=== PATIENT | male | born 1945 | race Caucasian/White ===

== ENCOUNTER 2018-11-30 16:37 | Observation (INO) | payer OTHER ==
[2018-11-30] MEDS ORDERED: Aspirin 81 MG Tab.Chew PO ONE (16:48)
[2018-11-30] MEDS ORDERED: Sodium Chloride 0.9% 2.5 ML Syringe FLUSH PRN (16:48)
[2018-11-30] MEDS ORDERED: Sodium Chloride 0.9% 10 ML Syringe FLUSH PRN (16:48)
--- NOTE | 2018-11-30 16:53 | EDM.PDOC ---
ED HPI GENERAL MEDICAL PROBLEM - General Chief Complaint: Cardiovascular Problem Stated Complaint: CHEST PAIN Time Seen by Provider: 11/30/18 16:39 - History of Present Illness INITIAL COMMENTS - FREE TEXT/NARRATIVE: HISTORY AND PHYSICAL: History of present illness: Patient is a 72-year-old white male status post cardiac stent 3 mid-October of this year who presents with a concern of a chest discomfort and diaphoresis and shortness of breath that occurred when he was exerting himself while helping his son. Patient states this episode lasted approximately 1 hour he is without symptoms on arrival here. He was prescribed nitroglycerin status post procedure but states he had left at home and did not take it. Review of systems: As per history of present illness and below otherwise all systems reviewed and negative. Past medical history: As per history of present illness and as reviewed below otherwise noncontributory. Surgical history: As per history of present illness and as reviewed below otherwise noncontributory. Social history: No reported history of drug or alcohol abuse. Family history: As per history of present illness and as reviewed below otherwise noncontributory. Physical exam: HEENT: Atraumatic, normocephalic, pupils reactive, negative for conjunctival pallor or scleral icterus, mucous membranes moist, throat clear, neck supple, nontender, trachea midline. Lungs: Clear to auscultation, breath sounds equal bilaterally, chest nontender. Heart: S1S2, regular, negative for clicks, rubs, or JVD. Abdomen: Soft, nondistended, nontender. Negative for masses or hepatosplenomegaly. Negative for costovertebral tenderness. Pelvis: Stable nontender. Genitourinary: Deferred. Rectal: Deferred. Extremities: Atraumatic, negative for cords or calf pain. Neurovascular unremarkable. Neuro: Awake, alert, oriented. Cranial nerves II through XII unremarkable. Cerebellum unremarkable. Motor and sensory unremarkable throughout. Exam nonfocal. Diagnostics: CBC CMP BNP troponin PT/INR chest x-ray EKG Therapeutics: IV O2 monitor aspirin 324 mg by mouth Impression: #1 chest pain #2 history of cardiac stent times 3 (October 2018) Definitive disposition and diagnosis as appropriate pending reevaluation and review of above. chest Pain Score (Numeric/FACES): 2 - Related Data Allergies Allergy/AdvReac Type Severity Reaction Status Date / Time Fish Containing Products Allergy Nausea and Verified 11/30/18 16:38 Vomiting shellfish derived Allergy Cannot Verified 11/30/18 16:38 Remember dust Allergy Sneezing Uncoded 08/10/16 10:45 Home Meds: Home Meds Albuterol [Proventil HFA] 2 puff INH Q6H PRN 08/10/16 [History] Aspirin [Adult Low Dose Aspirin EC] 1 tab PO DAILY 08/10/16 [History] Atenolol 1 tab PO DAILY 08/10/16 [History] Fexofenadine HCl 1 tab PO DAILY 08/10/16 [History] Fluticasone Propionate [Flonase Allergy Relief] 2 spray NASBOTH DAILY 08/10/16 [ History] Gabapentin [Neurontin] 1 cap PO BID 08/10/16 [History] Lisinopril 0.5 tab PO DAILY 08/10/16 [History] Mometasone Furoate 100mcg [Asmanex HFA 100mcg] 1 puff INH QPM 08/10/16 [History] Multivitamin [Multivitamins] 1 cap PO DAILY 08/10/16 [History] Pantoprazole Sodium 1 tab PO QAM 08/10/16 [History] Potassium Chloride 2 cap PO DAILY 08/10/16 [History] Sildenafil Citrate [Sildenafil] 50 mg PO ASDIRECTED PRN 08/10/16 [History] Venlafaxine [Effexor] 50 mg PO BID 08/10/16 [History] Zolpidem Tartrate 1 tab PO BEDTIME PRN 08/10/16 [History] amLODIPine Besylate [Amlodipine Besylate] 1 tab PO DAILY 08/10/16 [History] atorvaSTATin Calcium [Atorvastatin Calcium] 1 tab PO BEDTIME 08/10/16 [History] hydroCHLOROthiazide [Hydrochlorothiazide] 0.5 tab PO DAILY 08/10/16 [History] metFORMIN HCl [Metformin ER Osmotic] 0.5 tab PO BID 08/10/16 [History] Past Medical History HEENT History: Reports: Allergic Rhinitis, Hard of Hearing Other HEENT History: wears glasses, has upper denture, has hearing aides but doesn't wear them Cardiovascular History: Reports: Blood Clots/VTE/DVT, High Cholesterol, Hypertension, [place] Respiratory History: Reports: Asthma Other Respiratory History: possible asthma, but mostly allergies that cause breathing problems Gastrointestinal History: Reports: GERD Genitourinary History: Reports: BPH Musculoskeletal History: Reports: None Other Musculoskeletal History: hx of fx bilateral legs and ribs Neurological History: Reports: Other (See Below) Other Neuro History: degenerative disc disease Psychiatric History: Reports: Anxiety, Depression Endocrine/Metabolic History: Reports: Diabetes, Type II Hematologic History: Reports: None Immunologic History: Reports: None Oncologic (Cancer) History: Reports: None Dermatologic History: Reports: None - Infectious Disease History Infectious Disease History: Reports: Chicken Pox, Measles, Rubella - Past Surgical History Head Surgeries/Procedures: Reports: None HEENT Surgical History: Reports: None Cardiovascular Surgical History: Reports: Coronary Artery Stent Respiratory Surgical History: Reports: None GI Surgical History: Reports: Colonoscopy, EGD Male Surgical History: Reports: None Endocrine Surgical History: Reports: None Neurological Surgical History: Reports: None Musculoskeletal Surgical History: Reports: Other (See Below) Oncologic Surgical History: Reports: None Dermatological Surgical History: Reports: None Social & Family History - Family History Family Medical History: Noncontributory - Tobacco Use Smoking Status *Q: Never Smoker Second Hand Smoke Exposure: No - Caffeine Use Caffeine Use: Reports: Coffee - Recreational Drug Use Recreational Drug Use: No ED ROS GENERAL - Review of Systems Review Of Systems: ROS reveals no pertinent complaints other than HPI. ED EXAM, GENERAL - Physical Exam Exam: See Below (See dictation) Course - Vital Signs Last Recorded V/S: Last Vital Signs Temp 36.6 C 11/30/18 16:38 Pulse 72 11/30/18 16:38 Resp 18 11/30/18 16:38 BP 143/76 H 11/30/18 16:38 Pulse Ox 95 11/30/18 16:47 - Orders/Labs/Meds Orders: Active Orders 24 hr Category Date Time Status Cardiac Monitoring [RC] . DIRECTED Care 11/30/18 16:47 Active EKG Documentation Completion [RC] STAT Care 11/30/18 16:47 Active Oxygen Therapy, ED [RC] ASDIRECTED Care 11/30/18 16:47 Active Pulse Oximetry [RC] ASDIRECTED Care 11/30/18 16:47 Active Sodium Chloride 0.9% [Normal Saline] 1,000 ml Med 11/30/18 17:00 Active IV STAT Sodium Chloride 0.9% [Saline Flush] Med 11/30/18 16:48 Active 10 ml FLUSH ASDIRECTED PRN Sodium Chloride 0.9% [Saline Flush] Med 11/30/18 16:48 Active 2.5 ml FLUSH ASDIRECTED PRN Saline Lock Insert [OM.PC] Stat Oth 11/30/18 16:47 Ordered Medication Orders Sodium Chloride (Normal Saline) 1,000 mls @ 125 mls/hr IV STAT JOSTIN Last Admin: 11/30/18 17:03 Dose: 125 mls/hr Sodium Chloride (Saline Flush) 10 ml FLUSH ASDIRECTED PRN PRN Reason: Keep Vein Open Last Admin: 11/30/18 17:04 Dose: 10 ml Sodium Chloride (Saline Flush) 2.5 ml FLUSH ASDIRECTED PRN PRN Reason: Keep Vein Open Last Admin: 11/30/18 17:04 Dose: 2.5 ml Labs: Laboratory Tests 11/30/18 11/30/18 11/30/18 Range/Units 16:53 16:53 16:53 WBC 5.96 (4.0-11.0) K/uL RBC 5.05 (4.50-5.90) M/uL Hgb 15.9 (13.0-17.0) g/dL Hct 44.2 (38.0-50.0) % MCV 87.5 (80.0-98.0) fL MCH 31.5 (27.0-32.0) pg MCHC 36.0 (31.0-37.0) g/dL RDW Std Deviation 44.4 (28.0-62.0) fl RDW Coeff of Alfonso 14 (11.0-15.0) % Plt Count 187 (150-400) K/uL MPV 10.00 (7.40-12.00) fL Neut % (Auto) 62.0 (48.0-80.0) % Lymph % (Auto) 26.0 (16.0-40.0) % [place] % (Auto) 8.4 (0.0-15.0) % Eos % (Auto) 2.9 (0.0-7.0) % Baso % (Auto) 0.7 (0.0-1.5) % Neut # (Auto) 3.7 (1.4-5.7) K/uL Lymph # (Auto) 1.6 (0.6-2.4) K/uL [place] # (Auto) 0.5 (0.0-0.8) K/uL Eos # (Auto) 0.2 (0.0-0.7) K/uL Baso # (Auto) 0.0 (0.0-0.1) K/uL Nucleated RBC % 0.0 /100WBC Nucleated RBCs # 0 K/uL INR 0.98 Sodium 140 (136-148) mmol/L Potassium 3.1 L (3.5-5.1) mmol/L Chloride 102 (98-107) mmol/L Carbon Dioxide 26.4 (21.0-32.0) mmol/L BUN 16 (7.0-18.0) mg/dL Creatinine 1.1 (0.8-1.3) mg/dL Est Cr Clr Drug Dosing 60.83 mL/min Estimated GFR (MDRD) > 60.0 ml/min Glucose 121 H (74-106) mg/dL Calcium 9.5 (8.5-10.1) mg/dL Total Bilirubin 0.9 (0.2-1.0) mg/dL AST 22 (15-37) IU/L ALT 30 (14-63) IU/L Alkaline Phosphatase 102 (46-116) U/L Troponin I < 0.050 (0.000-0.056) ng/mL B-Natriuretic Peptide (<100) PG/ML Total Protein 7.5 (6.4-8.2) g/dL Albumin 4.0 (3.4-5.0) g/dL Globulin 3.5 (2.6-4.0) g/dL Albumin/Globulin Ratio 1.1 (0.9-1.6) 11/30/18 Range/Units 16:53 WBC (4.0-11.0) K/uL RBC (4.50-5.90) M/uL Hgb (13.0-17.0) g/dL Hct (38.0-50.0) % MCV (80.0-98.0) fL MCH (27.0-32.0) pg MCHC (31.0-37.0) g/dL RDW Std Deviation (28.0-62.0) fl RDW Coeff of Alfonso (11.0-15.0) % Plt Count (150-400) K/uL MPV (7.40-12.00) fL Neut % (Auto) (48.0-80.0) % Lymph % (Auto) (16.0-40.0) % [place] % (Auto) (0.0-15.0) % Eos % (Auto) (0.0-7.0) % Baso % (Auto) (0.0-1.5) % Neut # (Auto) (1.4-5.7) K/uL Lymph # (Auto) (0.6-2.4) K/uL [place] # (Auto) (0.0-0.8) K/uL Eos # (Auto) (0.0-0.7) K/uL Baso # (Auto) (0.0-0.1) K/uL Nucleated RBC % /100WBC Nucleated RBCs # K/uL INR Sodium (136-148) mmol/L Potassium (3.5-5.1) mmol/L Chloride (98-107) mmol/L Carbon Dioxide (21.0-32.0) mmol/L BUN (7.0-18.0) mg/dL Creatinine (0.8-1.3) mg/dL Est Cr Clr Drug Dosing mL/min Estimated GFR (MDRD) ml/min Glucose (74-106) mg/dL Calcium (8.5-10.1) mg/dL Total Bilirubin (0.2-1.0) mg/dL AST (15-37) IU/L ALT (14-63) IU/L Alkaline Phosphatase (46-116) U/L Troponin I (0.000-0.056) ng/mL B-Natriuretic Peptide 51 (<100) PG/ML Total Protein (6.4-8.2) g/dL Albumin (3.4-5.0) g/dL Globulin (2.6-4.0) g/dL Albumin/Globulin Ratio (0.9-1.6) Meds: Medications Generic Name Dose Route Start Last Admin Trade Name Freq PRN Reason Stop Dose Admin Sodium Chloride 1,000 mls @ 125 mls/hr 11/30/18 17:00 11/30/18 17:03 Normal Saline IV 125 mls/hr STAT JOSTIN Administration Sodium Chloride 10 ml 11/30/18 16:48 11/30/18 17:04 Saline Flush FLUSH 10 ml ASDIRECTED PRN Administration Keep Vein Open Sodium Chloride 2.5 ml 11/30/18 16:48 11/30/18 17:04 Saline Flush FLUSH 2.5 ml ASDIRECTED PRN Administration Keep Vein Open Discontinued Medications Generic Name Dose Route Start Last Admin Trade Name Freq PRN Reason Stop Dose Admin Aspirin 324 mg 11/30/18 16:48 11/30/18 17:05 Aspirin PO 11/30/18 16:49 Not Given ONETIME ONE Departure - Departure Time of Disposition: 17:58 Disposition: Refer to Observation Condition: Good Clinical Impression: Chest pain Referrals: PCP,Unknown [Primary Care Provider] - Forms: ED Department Discharge - My Orders Last 24 Hours: My Active Orders 11/30/18 16:47 Cardiac Monitoring [RC] . DIRECTED EKG Documentation Completion [RC] STAT Oxygen Therapy, ED [RC] ASDIRECTED Pulse Oximetry [RC] ASDIRECTED Saline Lock Insert [OM.PC] Stat 11/30/18 16:48 Sodium Chloride 0.9% [Saline Flush] 10 ml FLUSH ASDIRECTED PRN Sodium Chloride 0.9% [Saline Flush] 2.5 ml FLUSH ASDIRECTED PRN 11/30/18 17:00 Sodium Chloride 0.9% [Normal Saline] 1,000 ml IV STAT - Assessment/Plan Last 24 Hours: My Active Orders 11/30/18 16:47 Cardiac Monitoring [RC] . DIRECTED EKG Documentation Completion [RC] STAT Oxygen Therapy, ED [RC] ASDIRECTED Pulse Oximetry [RC] ASDIRECTED Saline Lock Insert [OM.PC] Stat 11/30/18 16:48 Sodium Chloride 0.9% [Saline Flush] 10 ml FLUSH ASDIRECTED PRN Sodium Chloride 0.9% [Saline Flush] 2.5 ml FLUSH ASDIRECTED PRN 11/30/18 17:00 Sodium Chloride 0.9% [Normal Saline] 1,000 ml IV STAT
[2018-11-30] MEDS: Sodium Chloride 0.9% 1,000 ML IV SCH (17:03)
--- NOTE | 2018-11-30 17:18 | CR ---
INDICATION: chest pain, sob, cough, fever TECHNIQUE: Chest 1 view. COMPARISON: None. FINDINGS: Cardiovascular and mediastinum: Heart size and vasculature are normal in caliber and appearance. Mediastinum is within normal limits. Lungs and pleural space: Lungs are clear. No sign of infiltrate or mass. No sign of pleural effusion. No pneumothorax. Bones and soft tissues: No significant findings. IMPRESSION: Unremarkable chest. Dictated by: Tucker Rodriguez MD @ 11/30/2018 17:16:48 (Electronically Signed)
[2018-11-30 17:50] LABS: CHLORIDE,CL 102 mmol/L (98-107); SODIUM,NA 140 mmol/L (136-148)
--- NOTE | 2018-11-30 18:32 | PCM.HP ---
H&P History of Present Illness - General Date of Service: 11/30/18 Admit Problem/Dx: Admission Diagnosis/Problem Admission Diagnosis/Problem Chest pain - History of Present Illness Initial Comments - Free Text/Narative: The patient is a 72-year-old male who presented to the ER after experiencing chest discomfort earlier this afternoon. He reports he was helping his nephew move things in the shop and developed chest discomfort. He said the items were not very heavy. He wasn't really exerting himself. He said the chest pain was a heaviness. He became very sweaty and had a little bit of shortness of breath. He reports this was nonradiating and lasted about half an hour to one hour. It had resolved by the time he presented to the ER. He recently had 3 stents placed in October in [place]. He had been in Dr. Sol's office doing a stress test. Dr. Sol had found EKG changes and sent him to [place] and he had a cath that day. The patient has past medical history of hyperlipidemia, hypertension, asthma, and type 2 diabetes. He also complains of sinus infection for the past couple weeks with nasal congestion, postnasal drip and productive cough. He reports he had a fever on Monday of 100.6. He's been using [id number] Coricidin and Mucinex, but is not improving. He has not been on any antibiotics. In the ER, they did lab work that showed low potassium, negative troponin, BNP within normal limits. Chest x-ray with no acute cardiopulmonary process. Negative influenza and an EKG that showed sinus rhythm and no ST elevation. In the ER, he was placed on O2 and given an aspirin chest Pain Score (Numeric/FACES): 2 - Related Data Allergies/Adverse Reactions: Allergies Allergy/AdvReac Type Severity Reaction Status Date / Time Fish Containing Products Allergy Nausea and Verified 11/30/18 16:38 Vomiting shellfish derived Allergy Cannot Verified 11/30/18 16:38 Remember dust Allergy Sneezing Uncoded 08/10/16 10:45 Home Medications: Home Meds Albuterol [Proventil HFA] 2 puff INH Q6H PRN 08/10/16 [History] Aspirin [Adult Low Dose Aspirin EC] 1 tab PO DAILY 08/10/16 [History] Atenolol 1 tab PO DAILY 08/10/16 [History] Fexofenadine HCl 1 tab PO DAILY 08/10/16 [History] Fluticasone Propionate [Flonase Allergy Relief] 2 spray NASBOTH DAILY 08/10/16 [ History] Gabapentin [Neurontin] 1 cap PO BID 08/10/16 [History] Lisinopril 0.5 tab PO DAILY 08/10/16 [History] Mometasone Furoate 100mcg [Asmanex HFA 100mcg] 1 puff INH QPM 08/10/16 [History] Multivitamin [Multivitamins] 1 cap PO DAILY 08/10/16 [History] Pantoprazole Sodium 1 tab PO QAM 08/10/16 [History] Potassium Chloride 2 cap PO DAILY 08/10/16 [History] Venlafaxine [Effexor] 50 mg PO BID 08/10/16 [History] Zolpidem Tartrate 1 tab PO BEDTIME PRN 08/10/16 [History] amLODIPine Besylate [Amlodipine Besylate] 1 tab PO DAILY 08/10/16 [History] atorvaSTATin Calcium [Atorvastatin Calcium] 1 tab PO BEDTIME 08/10/16 [History] hydroCHLOROthiazide [Hydrochlorothiazide] 0.5 tab PO DAILY 08/10/16 [History] metFORMIN HCl [Metformin ER Osmotic] 0.5 tab PO BID 08/10/16 [History] Past Medical History HEENT History: Reports: Allergic Rhinitis, Hard of Hearing Other HEENT History: wears glasses, has upper denture, has hearing aides but doesn't wear them Cardiovascular History: Reports: Blood Clots/VTE/DVT, High Cholesterol, Hypertension, [place] Respiratory History: Reports: Asthma Other Respiratory History: possible asthma, but mostly allergies that cause breathing problems Gastrointestinal History: Reports: GERD Genitourinary History: Reports: BPH Musculoskeletal History: Reports: None Other Musculoskeletal History: hx of fx bilateral legs and ribs Neurological History: Reports: Other (See Below) Other Neuro History: degenerative disc disease Psychiatric History: Reports: Anxiety, Depression Endocrine/Metabolic History: Reports: Diabetes, Type II Hematologic History: Reports: None Immunologic History: Reports: None Oncologic (Cancer) History: Reports: None Dermatologic History: Reports: None - Infectious Disease History Infectious Disease History: Reports: Chicken Pox, Measles, Rubella - Past Surgical History Head Surgeries/Procedures: Reports: None HEENT Surgical History: Reports: None Cardiovascular Surgical History: Reports: Coronary Artery Stent Respiratory Surgical History: Reports: None GI Surgical History: Reports: Colonoscopy, EGD Male Surgical History: Reports: None Endocrine Surgical History: Reports: None Neurological Surgical History: Reports: None Musculoskeletal Surgical History: Reports: Other (See Below) Oncologic Surgical History: Reports: None Dermatological Surgical History: Reports: None Social & Family History - Family History Family Medical History: Noncontributory - Tobacco Use Smoking Status *Q: Never Smoker Second Hand Smoke Exposure: No - Caffeine Use Caffeine Use: Reports: Coffee - Recreational Drug Use Recreational Drug Use: No H&P Review of Systems - Review of Systems: Review Of Systems: See Below General: Reports: Diaphoresis HEENT: Reports: Post Nasal Drip, Sinus Congestion Pulmonary: Reports: Shortness of Breath, Cough Cardiovascular: Reports: Chest Pain (since resolved) Gastrointestinal: Reports: No Symptoms Genitourinary: Reports: No Symptoms Musculoskeletal: Reports: No Symptoms Skin: Reports: No Symptoms Psychiatric: Reports: No Symptoms Neurological: Reports: No Symptoms Hematologic/Lymphatic: Reports: No Symptoms Immunologic: Reports: No Symptoms Exam - Exam Exam: See Below - Vital Signs Vital Signs: Last Vital Signs Temp 97.8 F 11/30/18 16:38 Pulse 72 11/30/18 16:38 Resp 18 11/30/18 16:38 BP 143/76 H 11/30/18 16:38 Pulse Ox 95 11/30/18 16:47 Weight: 89.811 kg - Exam General: Alert, Oriented, Cooperative HEENT: Conjunctiva Clear, Mucosa Moist & [place] Neck: Supple, Trachea Midline Lungs: Clear to Auscultation, Normal Respiratory Effort Cardiovascular: Regular Rate, Regular Rhythm GI/Abdominal Exam: Normal Bowel Sounds, Soft, Non-Tender, No Distention Extremities: No Pedal Edema Skin: Warm, Dry Neuro Extensive - Mental Status: Alert, Oriented x3 Psychiatric: Alert, Normal Affect, Normal Mood - Patient Data Lab Results Last 24 hrs: Laboratory Results - last 24 hr 11/30/18 11/30/18 11/30/18 Range/Units 16:53 16:53 16:53 WBC 5.96 (4.0-11.0) K/uL RBC 5.05 (4.50-5.90) M/uL Hgb 15.9 (13.0-17.0) g/dL Hct 44.2 (38.0-50.0) % MCV 87.5 (80.0-98.0) fL MCH 31.5 (27.0-32.0) pg MCHC 36.0 (31.0-37.0) g/dL RDW Std Deviation 44.4 (28.0-62.0) fl RDW Coeff of Alfonso 14 (11.0-15.0) % Plt Count 187 (150-400) K/uL MPV 10.00 (7.40-12.00) fL Neut % (Auto) 62.0 (48.0-80.0) % Lymph % (Auto) 26.0 (16.0-40.0) % [place] % (Auto) 8.4 (0.0-15.0) % Eos % (Auto) 2.9 (0.0-7.0) % Baso % (Auto) 0.7 (0.0-1.5) % Neut # (Auto) 3.7 (1.4-5.7) K/uL Lymph # (Auto) 1.6 (0.6-2.4) K/uL [place] # (Auto) 0.5 (0.0-0.8) K/uL Eos # (Auto) 0.2 (0.0-0.7) K/uL Baso # (Auto) 0.0 (0.0-0.1) K/uL Nucleated RBC % 0.0 /100WBC Nucleated RBCs # 0 K/uL INR 0.98 Sodium 140 (136-148) mmol/L Potassium 3.1 L (3.5-5.1) mmol/L Chloride 102 (98-107) mmol/L Carbon Dioxide 26.4 (21.0-32.0) mmol/L BUN 16 (7.0-18.0) mg/dL Creatinine 1.1 (0.8-1.3) mg/dL Est Cr Clr Drug Dosing 60.83 mL/min Estimated GFR (MDRD) > 60.0 ml/min Glucose 121 H (74-106) mg/dL Calcium 9.5 (8.5-10.1) mg/dL Total Bilirubin 0.9 (0.2-1.0) mg/dL AST 22 (15-37) IU/L ALT 30 (14-63) IU/L Alkaline Phosphatase 102 (46-116) U/L Troponin I < 0.050 (0.000-0.056) ng/mL B-Natriuretic Peptide (<100) PG/ML Total Protein 7.5 (6.4-8.2) g/dL Albumin 4.0 (3.4-5.0) g/dL Globulin 3.5 (2.6-4.0) g/dL Albumin/Globulin Ratio 1.1 (0.9-1.6) 11/30/18 Range/Units 16:53 WBC (4.0-11.0) K/uL RBC (4.50-5.90) M/uL Hgb (13.0-17.0) g/dL Hct (38.0-50.0) % MCV (80.0-98.0) fL MCH (27.0-32.0) pg MCHC (31.0-37.0) g/dL RDW Std Deviation (28.0-62.0) fl RDW Coeff of Alfonso (11.0-15.0) % Plt Count (150-400) K/uL MPV (7.40-12.00) fL Neut % (Auto) (48.0-80.0) % Lymph % (Auto) (16.0-40.0) % [place] % (Auto) (0.0-15.0) % Eos % (Auto) (0.0-7.0) % Baso % (Auto) (0.0-1.5) % Neut # (Auto) (1.4-5.7) K/uL Lymph # (Auto) (0.6-2.4) K/uL [place] # (Auto) (0.0-0.8) K/uL Eos # (Auto) (0.0-0.7) K/uL Baso # (Auto) (0.0-0.1) K/uL Nucleated RBC % /100WBC Nucleated RBCs # K/uL INR Sodium (136-148) mmol/L Potassium (3.5-5.1) mmol/L Chloride (98-107) mmol/L Carbon Dioxide (21.0-32.0) mmol/L BUN (7.0-18.0) mg/dL Creatinine (0.8-1.3) mg/dL Est Cr Clr Drug Dosing mL/min Estimated GFR (MDRD) ml/min Glucose (74-106) mg/dL Calcium (8.5-10.1) mg/dL Total Bilirubin (0.2-1.0) mg/dL AST (15-37) IU/L ALT (14-63) IU/L Alkaline Phosphatase (46-116) U/L Troponin I (0.000-0.056) ng/mL B-Natriuretic Peptide 51 (<100) PG/ML Total Protein (6.4-8.2) g/dL Albumin (3.4-5.0) g/dL Globulin (2.6-4.0) g/dL Albumin/Globulin Ratio (0.9-1.6) Result Diagrams: 11/30/18 16:53 11/30/18 16:53 [place] Results Last 24 hrs: Microbiology 11/30/18 17:30 Influenza Type A Antigen Screen - Final Nasopharyngeal Swab NEGATIVE INFLUENZA A VIRUS AG Influenza Type B Antigen Screen - Final NEGATIVE INFLUENZA B VIRUS AG Problem List Initiated/Reviewed/Updated: Yes Orders Last 24hrs: Active Orders 24 hr Category Date Time Status Patient Status [ADT] Stat ADT 11/30/18 17:59 Active Cardiac Monitoring [RC] . DIRECTED Care 11/30/18 16:47 Active EKG Documentation Completion [RC] STAT Care 11/30/18 16:47 Active Oxygen Therapy, ED [RC] ASDIRECTED Care 11/30/18 16:47 Active Pulse Oximetry [RC] ASDIRECTED Care 11/30/18 16:47 Active Sodium Chloride 0.9% [Normal Saline] 1,000 ml Med 11/30/18 17:00 Active IV STAT Sodium Chloride 0.9% [Saline Flush] Med 11/30/18 16:48 Active 10 ml FLUSH ASDIRECTED PRN Sodium Chloride 0.9% [Saline Flush] Med 11/30/18 16:48 Active 2.5 ml FLUSH ASDIRECTED PRN Saline Lock Insert [OM.PC] Stat Oth 11/30/18 16:47 Ordered Medication Orders Sodium Chloride (Normal Saline) 1,000 mls @ 125 mls/hr IV STAT JOSTIN Last Admin: 11/30/18 17:03 Dose: 125 mls/hr Sodium Chloride (Saline Flush) 10 ml FLUSH ASDIRECTED PRN PRN Reason: Keep Vein Open Last Admin: 11/30/18 17:04 Dose: 10 ml Sodium Chloride (Saline Flush) 2.5 ml FLUSH ASDIRECTED PRN PRN Reason: Keep Vein Open Last Admin: 11/30/18 17:04 Dose: 2.5 ml Assessment/Plan Comment:: 1. Admit for observation 2. Code status-full 3 Vitals per routine 4. I/Os per routine 5. Diet- cardiac 6. DVT prophylaxis with SCDs 7. Chest pain, ACS rule out, recent cardiac stents- will trend troponins and monitor on tele. Continue home medications for CAD. Morphine/nitro prn chest pain. 8. Sinus infection- will start on augmentin 9.Hypokalemia- will replace with 40 mEq and recheck in the AM 10. Chronic conditions- DMII, HTN, asthma, GERD, anxiety/depression- continue home meds but place on sliding scale for diabetes.
[2018-11-30] MEDS ORDERED: Albuterol/Ipratropium 3.0-0.5 MG/3 ML Neb Soln NEB PRN (19:12)
[2018-11-30] MEDS ORDERED: Morphine 2 MG/ML Syringe IVPUSH PRN (19:12)
[2018-11-30] MEDS ORDERED: Potassium Chloride 20 MEQ Tab.ER PO ONE (19:12)
[2018-11-30] MEDS ORDERED: Nitroglycerin 0.4 MG Tab.SL SL PRN (19:12)
[2018-11-30] MEDS ORDERED: Acetaminophen 325 MG Tab PO PRN (19:18)
[2018-11-30] MEDS ORDERED: Ondansetron 4 MG/2 ML SDV IVPUSH PRN (19:18)
[2018-11-30] MEDS ORDERED: Albuterol 6.7 GM Inhaler INH PRN (19:27)
[2018-11-30] MEDS ORDERED: atorvaSTATin 40 MG Tab PO SCH (21:00)
[2018-11-30] MEDS ORDERED: VENLAFAXINE 50 MG PO SCH (21:00)
[2018-11-30] MEDS ORDERED: Fluticasone Propionate Nasal Spray 16 GM Bottle NAS SCH (21:00)
[2018-11-30] MEDS: Amoxicillin/Clavulanate K 875-125 MG Tab PO SCH (21:45)
[2018-11-30] MEDS: Gabapentin 800 MG Tab PO SCH (21:45)
[2018-12-01] MEDS: Sodium Chloride 0.9% 1,000 ML IV SCH (01:13)
[2018-12-01 06:20] LABS: CHLORIDE,CL 107 mmol/L (98-107); SODIUM,NA 144 mmol/L (136-148)
[2018-12-01] MEDS: Insulin Aspart 100 Units/ML 3 ML Pen SUBCUT SCH ×2 (07:36→12:10)
[2018-12-01] MEDS ORDERED: Hydrochlorothiazide 25 MG Tab PO SCH (09:00)
[2018-12-01] MEDS ORDERED: Clopidogrel 75 MG Tab PO SCH (09:00)
[2018-12-01] MEDS ORDERED: Potassium Chloride 20 MEQ Tab.ER PO SCH (09:00)
[2018-12-01] MEDS ORDERED: amLODIPine 5 MG Tab PO SCH (09:00)
[2018-12-01] MEDS ORDERED: Aspirin 81 MG Tab.EC PO SCH (09:00)
[2018-12-01] MEDS ORDERED: Pantoprazole 40 MG Tab.CR PO SCH (09:00)
[2018-12-01] MEDS ORDERED: Lisinopril 5 MG Tab PO SCH (09:00)
[2018-12-01] MEDS ORDERED: Atenolol 50 MG Tab PO SCH (09:00)
[2018-12-01] MEDS: Potassium Chloride 20 MEQ Tab.ER PO ONE ×2 (09:37→10:00)
[2018-12-01] MEDS: Gabapentin 800 MG Tab PO SCH (09:38)
[2018-12-01] MEDS: Amoxicillin/Clavulanate K 875-125 MG Tab PO SCH (09:39)
--- NOTE | 2018-12-01 10:56 | PCM.DCSUM1 ---
<Sandra Goldman - Last Filed: 12/01/18 12:11> Discharge Summary - Hospital Course HPI Initial Comments: Admission Date: 11/30/18 Discharge Date: 12/01/18 Admission Diagnosis: 1. Chest pain with recent cardiac stenting 2. Sinus infection 3. Hypokalemia 4. Chronic conditions- HTN, CAD, hyperlipidemia, depression/anxiety, asthma Discharge Diagnosis: 1. Chest pain with recent cardiac stenting- no further episodes 2. Sinus infection 3. Hypokalemia-improved 4. Chronic conditions- HTN, CAD, hyperlipidemia, depression/anxiety, asthma Procedures: None Consults: None Hospital Course: The patient is a 72-year-old male who presented to the ER after having chest pain earlier in the day. He was no longer having chest pain when he presented to the ER. He does have a recent history of 3 stents placed in October 2018 in [place]. ER workup included labs that did not show an elevated troponin. No elevation in BNP but did find a hypokalemia. Chest x- ray showed no acute cardiopulmonary process. EKG showed normal sinus rhythm without any ST segment elevations. The patient was admitted to the medical surgical floor where his troponins were trended and were negative 3. He did not develop any more chest pain. He was started on Augmentin for sinus infection. His potassium was replaced and improved. He was continued on his home medications for his chronic conditions. By day of discharge, patient was feeling better ready to go home. Disposition: Home Discharge Condition: Vitals stable, tolerating oral diet, low ambulate without difficulty, no further episodes, chest pain Discharge Instructions: Heart healthy diet, activity as tolerated, take medications as prescribed. Symptoms to report to physician include fever, chills, chest pain, shortness of breath, abdominal pain, erythema, discharge, drainage, edema, or not improving as expected Discharge Medications: Albuterol [Proventil HFA] 2 puff INH Q6H PRN Aspirin [Adult Low Dose Aspirin EC] 1 tab PO DAILY Atenolol 1 tab PO DAILY Fexofenadine HCl 1 tab PO DAILY Fluticasone Propionate [Flonase Allergy Relief] 2 spray NASBOTH DAILY Gabapentin [Neurontin] 1 cap PO BID Lisinopril 0.5 tab PO DAILY Mometasone Furoate 100mcg [Asmanex HFA 100mcg] 1 puff INH QPM Multivitamin [Multivitamins] 1 cap PO DAILY Pantoprazole Sodium 1 tab PO QAM Potassium Chloride 2 cap PO DAILY Venlafaxine [Effexor] 50 mg PO BID Zolpidem Tartrate 1 tab PO BEDTIME PRN amLODIPine Besylate [Amlodipine Besylate] 1 tab PO DAILY atorvaSTATin Calcium [Atorvastatin Calcium] 1 tab PO BEDTIME hydroCHLOROthiazide [Hydrochlorothiazide] 0.5 tab PO DAILY metFORMIN HCl [Metformin ER Osmotic] 0.5 tab PO BID Amoxicillin/Clavulanate K [Augmentin 875-125 MG] 1 tab PO Q12HR 7 Days Clopidogrel [Plavix] 75 mg PO DAILY tablet Nitroglycerin [Nitrostat] 0.4 mg SL Q5M PRN Follow-up: PCP and suction worker Diagnosis: Stroke: No - Discharge Data Discharge Date: 12/01/18 Discharge Disposition: Home, Self-Care 01 Condition: Fair - Patient Instructions Diet: Heart Healthy Diet Activity: As Tolerated Driving: May Drive Today Showering/Bathing: May Shower Notify Provider of: Fever, Increased Pain, Swelling and Redness, Drainage, Nausea and/or Vomiting Other/Special Instructions: Additional symptoms include chest pain, shortness of breath, or abdominal pain. Please follow up with your suction worker. - Discharge Plan *PRESCRIPTION DRUG MONITORING PROGRAM REVIEWED*: No *COPY OF PRESCRIPTION DRUG MONITORING REPORT IN PATIENT SHELBI: No Prescriptions/Med Rec: Amoxicillin/Clavulanate K [Augmentin 875-125 MG] 1 tab PO Q12HR 7 Days #14 tablet Home Medications: Home Meds Albuterol [Proventil HFA] 2 puff INH Q6H PRN 08/10/16 [History] Aspirin [Adult Low Dose Aspirin EC] 1 tab PO DAILY 08/10/16 [History] Atenolol 1 tab PO DAILY 08/10/16 [History] Fexofenadine HCl 1 tab PO DAILY 08/10/16 [History] Fluticasone Propionate [Flonase Allergy Relief] 2 spray NASBOTH DAILY 08/10/16 [ History] Gabapentin [Neurontin] 1 cap PO BID 08/10/16 [History] Lisinopril 0.5 tab PO DAILY 08/10/16 [History] Mometasone Furoate 100mcg [Asmanex HFA 100mcg] 1 puff INH QPM 08/10/16 [History] Multivitamin [Multivitamins] 1 cap PO DAILY 08/10/16 [History] Pantoprazole Sodium 1 tab PO QAM 08/10/16 [History] Potassium Chloride 2 cap PO DAILY 08/10/16 [History] Venlafaxine [Effexor] 50 mg PO BID 08/10/16 [History] Zolpidem Tartrate 1 tab PO BEDTIME PRN 08/10/16 [History] amLODIPine Besylate [Amlodipine Besylate] 1 tab PO DAILY 08/10/16 [History] atorvaSTATin Calcium [Atorvastatin Calcium] 1 tab PO BEDTIME 08/10/16 [History] hydroCHLOROthiazide [Hydrochlorothiazide] 0.5 tab PO DAILY 08/10/16 [History] metFORMIN HCl [Metformin ER Osmotic] 0.5 tab PO BID 08/10/16 [History] Amoxicillin/Clavulanate K [Augmentin 875-125 MG] 1 tab PO Q12HR 7 Days #14 tablet 12/01/18 [Rx] Clopidogrel [Plavix] 75 mg PO DAILY tablet 12/01/18 [Rx] Nitroglycerin [Nitrostat] 0.4 mg SL Q5M PRN tab.sl 12/01/18 [Rx] Patient Handouts: Amoxicillin capsules or tablets, Nonspecific Chest Pain, Easy -to-Read Referrals: Tara Osorio MD [Physician] - - Discharge Summary/Plan Comment DC Time >30 min.: No - Patient Data Vitals - Most Recent: Last Vital Signs Temp 97 F 12/01/18 08:00 Pulse 57 L 12/01/18 09:38 Resp 16 12/01/18 08:00 BP 143/74 H 12/01/18 09:39 Pulse Ox 96 12/01/18 08:00 Weight - Most Recent: 89.811 kg I&O - Last 24 hours: Intake & Output 11/30/18 12/01/18 12/01/18 22:59 06:59 14:59 Intake Total 1909 Output Total 950 Balance 959 Lab Results - Last 24 hrs: Laboratory Results - last 24 hr 11/30/18 11/30/18 11/30/18 Range/Units 16:53 16:53 16:53 WBC 5.96 (4.0-11.0) K/uL RBC 5.05 (4.50-5.90) M/uL Hgb 15.9 (13.0-17.0) g/dL Hct 44.2 (38.0-50.0) % MCV 87.5 (80.0-98.0) fL MCH 31.5 (27.0-32.0) pg MCHC 36.0 (31.0-37.0) g/dL RDW Std Deviation 44.4 (28.0-62.0) fl RDW Coeff of Alfonso 14 (11.0-15.0) % Plt Count 187 (150-400) K/uL MPV 10.00 (7.40-12.00) fL Neut % (Auto) 62.0 (48.0-80.0) % Lymph % (Auto) 26.0 (16.0-40.0) % Glades % (Auto) 8.4 (0.0-15.0) % Eos % (Auto) 2.9 (0.0-7.0) % Baso % (Auto) 0.7 (0.0-1.5) % Neut # (Auto) 3.7 (1.4-5.7) K/uL Lymph # (Auto) 1.6 (0.6-2.4) K/uL Glades # (Auto) 0.5 (0.0-0.8) K/uL Eos # (Auto) 0.2 (0.0-0.7) K/uL Baso # (Auto) 0.0 (0.0-0.1) K/uL Nucleated RBC % 0.0 /100WBC Nucleated RBCs # 0 K/uL INR 0.98 Sodium 140 (136-148) mmol/L Potassium 3.1 L (3.5-5.1) mmol/L Chloride 102 (98-107) mmol/L Carbon Dioxide 26.4 (21.0-32.0) mmol/L BUN 16 (7.0-18.0) mg/dL Creatinine 1.1 (0.8-1.3) mg/dL Est Cr Clr Drug Dosing 60.83 mL/min Estimated GFR (MDRD) > 60.0 ml/min Glucose 121 H (74-106) mg/dL Calcium 9.5 (8.5-10.1) mg/dL Total Bilirubin 0.9 (0.2-1.0) mg/dL AST 22 (15-37) IU/L ALT 30 (14-63) IU/L Alkaline Phosphatase 102 (46-116) U/L Troponin I < 0.050 (0.000-0.056) ng/mL B-Natriuretic Peptide (<100) PG/ML Total Protein 7.5 (6.4-8.2) g/dL Albumin 4.0 (3.4-5.0) g/dL Globulin 3.5 (2.6-4.0) g/dL Albumin/Globulin Ratio 1.1 (0.9-1.6) 11/30/18 11/30/18 12/01/18 Range/Units 16:53 22:55 05:18 WBC 5.66 (4.0-11.0) K/uL RBC 4.46 L (4.50-5.90) M/uL Hgb 13.8 (13.0-17.0) g/dL Hct 39.6 (38.0-50.0) % MCV 88.8 (80.0-98.0) fL MCH 30.9 (27.0-32.0) pg MCHC 34.8 (31.0-37.0) g/dL RDW Std Deviation 45.0 (28.0-62.0) fl RDW Coeff of Alfonso 14 (11.0-15.0) % Plt Count 170 (150-400) K/uL MPV 10.10 (7.40-12.00) fL Neut % (Auto) 57.5 (48.0-80.0) % Lymph % (Auto) 28.6 (16.0-40.0) % Glades % (Auto) 9.7 (0.0-15.0) % Eos % (Auto) 3.7 (0.0-7.0) % Baso % (Auto) 0.5 (0.0-1.5) % Neut # (Auto) 3.3 (1.4-5.7) K/uL Lymph # (Auto) 1.6 (0.6-2.4) K/uL Glades # (Auto) 0.6 (0.0-0.8) K/uL Eos # (Auto) 0.2 (0.0-0.7) K/uL Baso # (Auto) 0.0 (0.0-0.1) K/uL Nucleated RBC % 0.0 /100WBC Nucleated RBCs # 0 K/uL INR Sodium (136-148) mmol/L Potassium (3.5-5.1) mmol/L Chloride (98-107) mmol/L Carbon Dioxide (21.0-32.0) mmol/L BUN (7.0-18.0) mg/dL Creatinine (0.8-1.3) mg/dL Est Cr Clr Drug Dosing mL/min Estimated GFR (MDRD) ml/min Glucose (74-106) mg/dL Calcium (8.5-10.1) mg/dL Total Bilirubin (0.2-1.0) mg/dL AST (15-37) IU/L ALT (14-63) IU/L Alkaline Phosphatase (46-116) U/L Troponin I < 0.050 (0.000-0.056) ng/mL B-Natriuretic Peptide 51 (<100) PG/ML Total Protein (6.4-8.2) g/dL Albumin (3.4-5.0) g/dL Globulin (2.6-4.0) g/dL Albumin/Globulin Ratio (0.9-1.6) 12/01/18 12/01/18 Range/Units 05:18 05:18 WBC (4.0-11.0) K/uL RBC (4.50-5.90) M/uL Hgb (13.0-17.0) g/dL Hct (38.0-50.0) % MCV (80.0-98.0) fL MCH (27.0-32.0) pg MCHC (31.0-37.0) g/dL RDW Std Deviation (28.0-62.0) fl RDW Coeff of Alfonso (11.0-15.0) % Plt Count (150-400) K/uL MPV (7.40-12.00) fL Neut % (Auto) (48.0-80.0) % Lymph % (Auto) (16.0-40.0) % Glades % (Auto) (0.0-15.0) % Eos % (Auto) (0.0-7.0) % Baso % (Auto) (0.0-1.5) % Neut # (Auto) (1.4-5.7) K/uL Lymph # (Auto) (0.6-2.4) K/uL Glades # (Auto) (0.0-0.8) K/uL Eos # (Auto) (0.0-0.7) K/uL Baso # (Auto) (0.0-0.1) K/uL Nucleated RBC % /100WBC Nucleated RBCs # K/uL INR Sodium 144 (136-148) mmol/L Potassium 3.3 L (3.5-5.1) mmol/L Chloride 107 (98-107) mmol/L Carbon Dioxide 30.2 (21.0-32.0) mmol/L BUN 14 (7.0-18.0) mg/dL Creatinine 0.9 (0.8-1.3) mg/dL Est Cr Clr Drug Dosing 74.35 mL/min Estimated GFR (MDRD) > 60.0 ml/min Glucose 101 (74-106) mg/dL Calcium 8.4 L (8.5-10.1) mg/dL Total Bilirubin 0.7 (0.2-1.0) mg/dL AST 19 (15-37) IU/L ALT 27 (14-63) IU/L Alkaline Phosphatase 82 (46-116) U/L Troponin I < 0.050 (0.000-0.056) ng/mL B-Natriuretic Peptide (<100) PG/ML Total Protein 6.0 L (6.4-8.2) g/dL Albumin 3.1 L (3.4-5.0) g/dL Globulin 2.9 (2.6-4.0) g/dL Albumin/Globulin Ratio 1.1 (0.9-1.6) [place] Results - Last 24 hrs: Microbiology 11/30/18 17:30 Influenza Type A Antigen Screen - Final Nasopharyngeal Swab NEGATIVE INFLUENZA A VIRUS AG Influenza Type B Antigen Screen - Final NEGATIVE INFLUENZA B VIRUS AG Med Orders - Current: Current Medications Acetaminophen (Tylenol) 650 mg PO Q4H PRN PRN Reason: Pain/Fever Albuterol (Proventil Hfa) 0 gm INH Q6H PRN PRN Reason: Allergies Albuterol/Ipratropium (Duoneb 3.0-0.5 Mg/3 Ml) 3 ml NEB Q4HRRT PRN PRN Reason: Shortness of Breath Amlodipine Besylate (Norvasc) 10 mg PO DAILY [facility] Last Admin: 12/01/18 09:38 Dose: 10 mg Amoxicillin/Clavulanate Potassium (Augmentin 875 Mg/125 Mg) 1 tab PO Q12HR [facility] Last Admin: 12/01/18 09:39 Dose: 1 tab Aspirin (Halfprin) 81 mg PO DAILY [facility] Last Admin: 12/01/18 09:37 Dose: 81 mg Atenolol (Tenormin) 100 mg PO DAILY [facility] Last Admin: 12/01/18 09:38 Dose: 100 mg Atorvastatin Calcium (Lipitor) 80 mg PO BEDTIME [facility] Last Admin: 11/30/18 21:44 Dose: 80 mg Clopidogrel Bisulfate (Plavix) 75 mg PO DAILY [facility] Last Admin: 12/01/18 09:37 Dose: 75 mg Fexofenadine HCl (Paola) 180 mg PO DAILY [facility] Last Admin: 12/01/18 10:22 Dose: 180 mg Fluticasone Propionate (Flonase) 0 gm HAYDEN DAILY@2100 [facility] Last Admin: 11/30/18 21:45 Dose: 1 puff Gabapentin (Neurontin) 400 mg PO BID [facility] Last Admin: 12/01/18 09:38 Dose: 400 mg Hydrochlorothiazide (Hydrochlorothiazide) 25 mg PO DAILY [facility] Last Admin: 12/01/18 09:37 Dose: 25 mg Insulin Aspart (Novolog) 0 unit SUBCUT TIDAC [facility]; Protocol Last Admin: 12/01/18 07:36 Dose: Not Given Lisinopril (Prinivil) 2.5 mg PO DAILY [facility] Last Admin: 12/01/18 09:39 Dose: 2.5 mg Morphine Sulfate (Morphine) 2 mg IVPUSH Q2H PRN PRN Reason: Chest Pain Nitroglycerin (Nitrostat) 0.4 mg SL Q5M PRN PRN Reason: Chest Pain Non-Formulary Medication (Venlafaxine) 50 mg PO BID [facility] Ondansetron HCl (Zofran) 4 mg IVPUSH Q4H PRN PRN Reason: Nausea/Vomiting Pantoprazole Sodium (Protonix) 40 mg PO QAM [facility] Last Admin: 12/01/18 09:39 Dose: 40 mg Potassium Chloride (Klor-Con M20) 20 meq PO DAILY [facility] Last Admin: 12/01/18 10:00 Dose: 20 meq Sodium Chloride (Saline Flush) 10 ml FLUSH ASDIRECTED PRN PRN Reason: Keep Vein Open Last Admin: 11/30/18 17:04 Dose: 10 ml Sodium Chloride (Saline Flush) 2.5 ml FLUSH ASDIRECTED PRN PRN Reason: Keep Vein Open Last Admin: 11/30/18 17:04 Dose: 2.5 ml Discontinued Medications Aspirin (Aspirin) 324 mg PO ONETIME ONE Stop: 11/30/18 16:49 Last Admin: 11/30/18 17:05 Dose: Not Given Sodium Chloride (Normal Saline) 1,000 mls @ 125 mls/hr IV STAT [facility] Last Admin: 12/01/18 01:13 Dose: 125 mls/hr Potassium Chloride (Klor-Con M20) 40 meq PO ONETIME ONE Stop: 11/30/18 19:13 Last Admin: 11/30/18 19:56 Dose: 40 meq Potassium Chloride (Klor-Con M20) 40 meq PO ONETIME ONE Stop: 12/01/18 07:03 Last Admin: 12/01/18 10:00 Dose: Not Given <Farhad Fuentes - Last Filed: 12/04/18 11:27> - Patient Data Vitals - Most Recent: Last Vital Signs Temp 36.7 C 12/01/18 12:00 Pulse 64 12/01/18 12:00 Resp 16 12/01/18 12:00 BP 118/74 12/01/18 12:00 Pulse Ox 94 L 12/01/18 12:00 Med Orders - Current: Current Medications Discontinued Medications Acetaminophen (Tylenol) 650 mg PO Q4H PRN PRN Reason: Pain/Fever Albuterol (Proventil Hfa) 0 gm INH Q6H PRN PRN Reason: Allergies Albuterol/Ipratropium (Duoneb 3.0-0.5 Mg/3 Ml) 3 ml NEB Q4HRRT PRN PRN Reason: Shortness of Breath Amlodipine Besylate (Norvasc) 10 mg PO DAILY [facility] Last Admin: 12/01/18 09:38 Dose: 10 mg Amoxicillin/Clavulanate Potassium (Augmentin 875 Mg/125 Mg) 1 tab PO Q12HR [facility] Last Admin: 12/01/18 09:39 Dose: 1 tab Aspirin (Aspirin) 324 mg PO ONETIME ONE Stop: 11/30/18 16:49 Last Admin: 11/30/18 17:05 Dose: Not Given Aspirin (Halfprin) 81 mg PO DAILY [facility] Last Admin: 12/01/18 09:37 Dose: 81 mg Atenolol (Tenormin) 100 mg PO DAILY [facility] Last Admin: 12/01/18 09:38 Dose: 100 mg Atorvastatin Calcium (Lipitor) 80 mg PO BEDTIME [facility] Last Admin: 11/30/18 21:44 Dose: 80 mg Clopidogrel Bisulfate (Plavix) 75 mg PO DAILY [facility] Last Admin: 12/01/18 09:37 Dose: 75 mg Fexofenadine HCl (Paola) 180 mg PO DAILY [facility] Last Admin: 12/01/18 10:22 Dose: 180 mg Fluticasone Propionate (Flonase) 0 gm HAYDEN DAILY@2100 [facility] Last Admin: 11/30/18 21:45 Dose: 1 puff Gabapentin (Neurontin) 400 mg PO BID [facility] Last Admin: 12/01/18 09:38 Dose: 400 mg Hydrochlorothiazide (Hydrochlorothiazide) 25 mg PO DAILY [facility] Last Admin: 12/01/18 09:37 Dose: 25 mg Sodium Chloride (Normal Saline) 1,000 mls @ 125 mls/hr IV STAT [facility] Last Admin: 12/01/18 01:13 Dose: 125 mls/hr Insulin Aspart (Novolog) 0 unit SUBCUT TIDAC [facility]; Protocol Last Admin: 12/01/18 12:10 Dose: Not Given Lisinopril (Prinivil) 2.5 mg PO DAILY [facility] Last Admin: 12/01/18 09:39 Dose: 2.5 mg Morphine Sulfate (Morphine) 2 mg IVPUSH Q2H PRN PRN Reason: Chest Pain Nitroglycerin (Nitrostat) 0.4 mg SL Q5M PRN PRN Reason: Chest Pain Non-Formulary Medication (Venlafaxine) 50 mg PO BID [facility] Ondansetron HCl (Zofran) 4 mg IVPUSH Q4H PRN PRN Reason: Nausea/Vomiting Pantoprazole Sodium (Protonix) 40 mg PO QAM [facility] Last Admin: 12/01/18 09:39 Dose: 40 mg Potassium Chloride (Klor-Con M20) 40 meq PO ONETIME ONE Stop: 11/30/18 19:13 Last Admin: 11/30/18 19:56 Dose: 40 meq Potassium Chloride (Klor-Con M20) 20 meq PO DAILY [facility] Last Admin: 12/01/18 10:00 Dose: 20 meq Potassium Chloride (Klor-Con M20) 40 meq PO ONETIME ONE Stop: 12/01/18 07:03 Last Admin: 12/01/18 10:00 Dose: Not Given Sodium Chloride (Saline Flush) 10 ml FLUSH ASDIRECTED PRN PRN Reason: Keep Vein Open Last Admin: 11/30/18 17:04 Dose: 10 ml Sodium Chloride (Saline Flush) 2.5 ml FLUSH ASDIRECTED PRN PRN Reason: Keep Vein Open Last Admin: 11/30/18 17:04 Dose: 2.5 ml - Free Text/Narrative Note: I have seen and evaluated the patient. I have discussed findings and treatment plan with the resident. I agree with the assessment and plan outlined in the following note.
[2018-12-01 12:03] VITALS: BP 118/74
== END 2018-12-01 12:35 | disposition home or self-care (01) ==
LOC: MW.ED 16:37 → MW.MS 18:15
PROVIDERS: ADMIT Internal Medicine; ATTEND Internal Medicine
DX: R07.89 Other chest pain (principal); E87.6 Hypokalemia; I10 Essential (primary) hypertension; I25.10 Atherosclerotic heart disease of native coronary artery without angina pectoris; I25.2 Old myocardial infarction; E11.9 Type 2 diabetes mellitus without complications; E78.00 Pure hypercholesterolemia, unspecified; J32.9 Chronic sinusitis, unspecified; J45.909 Unspecified asthma, uncomplicated; F41.9 Anxiety disorder, unspecified; F32.9 Major depressive disorder, single episode, unspecified; Z91.013 Allergy to seafood; Z95.5 Presence of coronary angioplasty implant and graft; Z79.82 Long term (current) use of aspirin; Z79.51 Long term (current) use of inhaled steroids; Z79.84 Long term (current) use of oral hypoglycemic drugs; Z79.02 Long term (current) use of antithrombotics/antiplatelets; Z79.899 Other long term (current) drug therapy; Z91.09 Other allergy status, other than to drugs and biological substances
CPT/HCPCS: 36415; 71045; 80053; 82962; 83880; 84484; 85025; 85610; 87804; 93005; 96360; 96361; 99285; A9270; G0378; J7040

== ENCOUNTER 2020-10-22 13:42 | Inpatient (IN) | payer OTHER, MEDICARE ==
[2020-10-22] MEDS ORDERED: Sodium Chloride 0.9% 2.5 ML Syringe FLUSH PRN (14:04)
[2020-10-22] MEDS ORDERED: Sodium Chloride 0.9% 10 ML Syringe FLUSH PRN (14:04)
[2020-10-22] MEDS ORDERED: Sodium Chloride 0.9% 1,000 ML IV ONE (14:04)
[2020-10-22] MEDS ORDERED: Morphine 4 MG/ML Syringe IVPUSH ONE ×2 (14:04→17:45)
--- NOTE | 2020-10-22 14:13 | EDM.PDOC ---
ED HPI GENERAL MEDICAL PROBLEM - General Chief Complaint: Upper Extremity Injury/Pain Stated Complaint: EMS ARRIVAL Time Seen by Provider: 10/22/20 13:49 Source of Information: Reports: Patient History Limitations: Reports: No Limitations - History of Present Illness INITIAL COMMENTS - FREE TEXT/NARRATIVE: 74-year-old male with history of HTN, diabetes, HLD presents with generalized weakness. He is status post right shoulder rotator cuff surgery by Dr. Hughes at the [facility] [place] on 10/14/2019. He was discharged with oxycodone and tramadol for pain. [place] After the surgery he has been laying on the couch since last Monday. He states he is too weak to get up. On Monday he slid off the couch onto his buttock and was unable to get up off the hardwood floor, he laid on the floor for 6 hours until he was able to work his way back on the couch. After the fall he started complaining of bilateral wrist pain and bilateral femur pain. He denied hitting his head or loss of consciousness, neck pain, chest pain, shortness of breath, abdominal pain, nausea, vomiting, diarrhea, hip pain, changes in urine output. ROS: A 10-point review of systems, other than pertinent positives and negatives as stated per HPI, is otherwise negative Past medical history: No additional pertinent history Past Surgical history: No additional pertinent history Social history: No additional pertinent history Family history: No additional pertinent history PHYSICAL EXAM General: AOx4, GCS = 15, mild distress HEENT: dry mucous membrane Neck: supple, no meningismus, no Kernig or Brudzinski Cardiac: S1S2 RRR Respiratory: CTAB, no crackles or rales, no wheezing Abdomen: Soft, nontender, no rebound or guarding, nondistended, no pulsatile mass. Back: nontender Musculoskeletal: NVI distally, right arm and immobilizer, right wrist and left wrist tender to palpation, right hand edematous, no Knievel sign. Mild soft tissue tenderness to bilateral anterior femur, no tenderness to posterior calf or thigh bilaterally. No tenderness to bilateral hips. Neuro: No focal deficits, CN 2 - 12 WNL. Right Shoulder Pain Score (Numeric/FACES): 6 - Related Data Allergies Allergy/AdvReac Type Severity Reaction Status Date / Time Fish Containing Products Allergy Nausea and Verified 10/22/20 13:52 Vomiting shellfish derived Allergy Cannot Verified 10/22/20 13:52 Remember dust Allergy Sneezing Uncoded 10/22/20 13:52 Home Meds: Home Meds Albuterol [Proventil HFA] 2 puff INH Q6H PRN 08/10/16 [History] Aspirin [Adult Low Dose Aspirin EC] 1 tab PO DAILY 08/10/16 [History] Fexofenadine HCl 1 tab PO DAILY 08/10/16 [History] Fluticasone Propionate [Flonase Allergy Relief] 2 spray NASBOTH DAILY 08/10/16 [History] Gabapentin [Neurontin] 1 cap PO BID 08/10/16 [History] Lisinopril 0.5 tab PO DAILY 08/10/16 [History] Mometasone Furoate 100mcg [Asmanex HFA 100mcg] 1 puff INH QPM 08/10/16 [History] Multivitamin [Multivitamins] 1 cap PO DAILY 08/10/16 [History] Pantoprazole Sodium 1 tab PO QAM 08/10/16 [History] Potassium Chloride 2 cap PO DAILY 08/10/16 [History] Venlafaxine [Effexor] 50 mg PO BID 08/10/16 [History] Zolpidem Tartrate 1 tab PO BEDTIME PRN 08/10/16 [History] amLODIPine Besylate [Amlodipine Besylate] 1 tab PO DAILY 08/10/16 [History] atenoloL [Atenolol] 1 tab PO DAILY 08/10/16 [History] atorvaSTATin Calcium [Atorvastatin Calcium] 1 tab PO BEDTIME 08/10/16 [History] hydroCHLOROthiazide [Hydrochlorothiazide] 0.5 tab PO DAILY 08/10/16 [History] metFORMIN HCl [Metformin ER Osmotic] 0.5 tab PO BID 08/10/16 [History] Amoxicillin/Clavulanate K [Augmentin 875-125 MG] 1 tab PO Q12HR 7 Days #14 tablet 12/01/18 [Rx] Clopidogrel [Plavix] 75 mg PO DAILY tablet 12/01/18 [Rx] Nitroglycerin [Nitrostat] 0.4 mg SL Q5M PRN tab.sl 12/01/18 [Rx] Past Medical History HEENT History: Reports: Allergic Rhinitis, Hard of Hearing Other HEENT History: wears glasses, has upper denture, has hearing aides but doesn't wear them Cardiovascular History: Reports: Blood Clots/VTE/DVT, High Cholesterol, Hypertension, CT Other Cardiovascular History: X 3 stents placed in 2018 Respiratory History: Reports: Asthma Other Respiratory History: possible asthma, but mostly allergies that cause breathing problems Gastrointestinal History: Reports: GERD Genitourinary History: Reports: BPH Musculoskeletal History: Reports: None Other Musculoskeletal History: hx of fx bilateral legs and ribs Neurological History: Reports: Other (See Below) Other Neuro History: degenerative disc disease Psychiatric History: Reports: Anxiety, Depression Endocrine/Metabolic History: Reports: Diabetes, Type II Hematologic History: Reports: None Immunologic History: Reports: None Oncologic (Cancer) History: Reports: None Dermatologic History: Reports: None - Infectious Disease History Infectious Disease History: Reports: Chicken Pox, Measles, Mumps, Rubella - Past Surgical History Head Surgeries/Procedures: Reports: None HEENT Surgical History: Reports: None Cardiovascular Surgical History: Reports: Coronary Artery Stent Respiratory Surgical History: Reports: None GI Surgical History: Reports: Colonoscopy, EGD Male Surgical History: Reports: None Endocrine Surgical History: Reports: None Neurological Surgical History: Reports: None, Other (See Below) Other Neurological Surgeries/Procedures: Back surgery of some kind Musculoskeletal Surgical History: Reports: Other (See Below) Other Musculoskeletal Surgeries/Procedures:: R Ankle replacement Oncologic Surgical History: Reports: None Dermatological Surgical History: Reports: None Social & Family History - Family History Family Medical History: No Pertinent Family History - Tobacco Use Tobacco Use Status *Q: Never Tobacco User - Caffeine Use Caffeine Use: Reports: Coffee - Recreational Drug Use Recreational Drug Use: No Review of Systems - Review of Systems Review Of Systems: See Below (see dictation) ED EXAM, GENERAL - Physical Exam Exam: See Below (see dictation) #1 Interpretation EKG Interpretation Comments: Heart rate = 69 bpm, normal sinus rhythm, normal QRS interval, no STEMI. EKG and rhythm strip interpreted by me at 1450 Course - Vital Signs Last Recorded V/S: Last Vital Signs Temp 98.2 F 10/22/20 13:45 Pulse 71 10/22/20 16:28 Resp 18 10/22/20 16:28 BP 133/70 10/22/20 16:28 Pulse Ox 86 L 10/22/20 16:43 - Orders/Labs/Meds Orders: Active Orders 24 hr Category Date Time Status Patient Status [ADT] Routine ADT 10/22/20 18:34 Ordered Cardiac Monitoring [RC] . DIRECTED Care 10/22/20 14:04 Active EKG Documentation Completion [RC] STAT Care 10/22/20 14:04 Active Pulse Oximetry [RC] ASDIRECTED Care 10/22/20 14:04 Active PTT,PARTIAL THROMBOPLSTIN TIME [COAG] Q6H Lab 10/22/20 18:45 Ordered PTT,PARTIAL THROMBOPLSTIN TIME [COAG] Q6H Lab 10/23/20 00:45 Ordered PTT,PARTIAL THROMBOPLSTIN TIME [COAG] Q6H Lab 10/23/20 06:45 Ordered PTT,PARTIAL THROMBOPLSTIN TIME [COAG] Q6H Lab 10/23/20 12:45 Ordered PTT,PARTIAL THROMBOPLSTIN TIME [COAG] Q6H Lab 10/23/20 18:45 Ordered PTT,PARTIAL THROMBOPLSTIN TIME [COAG] Q6H Lab 10/24/20 00:45 Ordered PTT,PARTIAL THROMBOPLSTIN TIME [COAG] Q6H Lab 10/24/20 06:45 Ordered PTT,PARTIAL THROMBOPLSTIN TIME [COAG] Stat Lab 10/22/20 18:32 Ordered Heparin Sodium Med 10/22/20 18:32 Once 5,000 units IVPUSH .BOLUS ONE Heparin Sodium/0.45% NaCl [Heparin 25,000 Units in 1/2 Med 10/22/20 18:45 Ordered NS 500 ML] 500 ml IV TITRATE Sodium Chloride 0.9% [Saline Flush] Med 10/22/20 14:04 Active 10 ml FLUSH ASDIRECTED PRN Sodium Chloride 0.9% [Saline Flush] Med 10/22/20 14:04 Active 2.5 ml FLUSH ASDIRECTED PRN Saline Lock Insert [OM.PC] Stat Oth 10/22/20 14:04 Ordered Medication Orders Heparin Sodium/Sodium Chloride (Heparin 25,000 Units In 1/2 Ns 500 Ml) 500 mls @ 1.842 mls/hr IV TITRATE JOSTIN; Protocol Sodium Chloride (Saline Flush) 10 ml FLUSH ASDIRECTED PRN PRN Reason: Keep Vein Open Last Admin: 10/22/20 14:14 Dose: 10 ml Documented by: LUIS Sodium Chloride (Saline Flush) 2.5 ml FLUSH ASDIRECTED PRN PRN Reason: Keep Vein Open Last Admin: 10/22/20 14:14 Dose: 2.5 ml Documented by: LUIS Labs: Laboratory Tests 10/22/20 10/22/20 10/22/20 Range/Units 14:16 14:16 14:16 WBC 6.76 (4.0-11.0) K/uL RBC 4.77 (4.50-5.90) M/uL Hgb 14.2 (13.0-17.0) g/dL Hct 41.8 (38.0-50.0) % MCV 87.6 (80.0-98.0) fL MCH 29.8 (27.0-32.0) pg MCHC 34.0 (31.0-37.0) g/dL RDW Std Deviation 42.6 (28.0-62.0) fl RDW Coeff of Alfonso 13 (11.0-15.0) % Plt Count 255 (150-400) K/uL MPV 10.00 (7.40-12.00) fL Neut % (Auto) 70.3 (48.0-80.0) % Lymph % (Auto) 15.1 L (16.0-40.0) % [place] % (Auto) 10.7 (0.0-15.0) % Eos % (Auto) 3.3 (0.0-7.0) % Baso % (Auto) 0.6 (0.0-1.5) % Neut # (Auto) 4.8 (1.4-5.7) K/uL Lymph # (Auto) 1.0 (0.6-2.4) K/uL [place] # (Auto) 0.7 (0.0-0.8) K/uL Eos # (Auto) 0.2 (0.0-0.7) K/uL Baso # (Auto) 0.0 (0.0-0.1) K/uL Nucleated RBC % 0.0 /100WBC Nucleated RBCs # 0 K/uL Lactate 1.1 (0.20-2.00) mmol/L Sodium 140 (136-148) mmol/L Potassium 3.6 (3.5-5.1) mmol/L Chloride 98 (98-107) mmol/L Carbon Dioxide 30.7 (21.0-32.0) mmol/L BUN 25 H (7.0-18.0) mg/dL Creatinine 1.0 (0.8-1.3) mg/dL Est Cr Clr Drug Dosing 64.89 mL/min Estimated GFR (MDRD) > 60.0 ml/min Glucose 117 H (74-106) mg/dL Calcium 9.3 (8.5-10.1) mg/dL Phosphorus 3.6 (2.6-4.7) mg/dL Magnesium 2.1 (1.8-2.4) mg/dL Total Bilirubin 1.0 (0.2-1.0) mg/dL AST 33 (15-37) IU/L ALT 24 (14-63) IU/L Alkaline Phosphatase 90 (46-116) U/L Creatine Kinase 323 H (26-308) U/L Troponin I < 0.050 (0.000-0.056) ng/mL B-Natriuretic Peptide (<100) PG/ML Total Protein 7.2 (6.4-8.2) g/dL Albumin 2.9 L (3.4-5.0) g/dL Globulin 4.3 H (2.6-4.0) g/dL Albumin/Globulin Ratio 0.7 L (0.9-1.6) Urine Color Urine Appearance Urine pH (5.0-8.0) Ur Specific [place] (1.001-1.035) Urine Protein (NEGATIVE) mg/dL Urine Glucose (UA) (NEGATIVE) mg/dL Urine Ketones (NEGATIVE) mg/dL Urine Occult Blood (NEGATIVE) Urine Nitrite (NEGATIVE) Urine Bilirubin (NEGATIVE) Urine Urobilinogen (<2.0) EU/dL Ur Leukocyte Esterase (NEGATIVE) SARS-CoV-2 RNA (BILL) (NEGATIVE) 10/22/20 10/22/20 10/22/20 Range/Units 14:16 15:35 16:47 WBC (4.0-11.0) K/uL RBC (4.50-5.90) M/uL Hgb (13.0-17.0) g/dL Hct (38.0-50.0) % MCV (80.0-98.0) fL MCH (27.0-32.0) pg MCHC (31.0-37.0) g/dL RDW Std Deviation (28.0-62.0) fl RDW Coeff of Alfonso (11.0-15.0) % Plt Count (150-400) K/uL MPV (7.40-12.00) fL Neut % (Auto) (48.0-80.0) % Lymph % (Auto) (16.0-40.0) % [place] % (Auto) (0.0-15.0) % Eos % (Auto) (0.0-7.0) % Baso % (Auto) (0.0-1.5) % Neut # (Auto) (1.4-5.7) K/uL Lymph # (Auto) (0.6-2.4) K/uL [place] # (Auto) (0.0-0.8) K/uL Eos # (Auto) (0.0-0.7) K/uL Baso # (Auto) (0.0-0.1) K/uL Nucleated RBC % /100WBC Nucleated RBCs # K/uL Lactate (0.20-2.00) mmol/L Sodium (136-148) mmol/L Potassium (3.5-5.1) mmol/L Chloride (98-107) mmol/L Carbon Dioxide (21.0-32.0) mmol/L BUN (7.0-18.0) mg/dL Creatinine (0.8-1.3) mg/dL Est Cr Clr Drug Dosing mL/min Estimated GFR (MDRD) ml/min Glucose (74-106) mg/dL Calcium (8.5-10.1) mg/dL Phosphorus (2.6-4.7) mg/dL Magnesium (1.8-2.4) mg/dL Total Bilirubin (0.2-1.0) mg/dL AST (15-37) IU/L ALT (14-63) IU/L Alkaline Phosphatase (46-116) U/L Creatine Kinase (26-308) U/L Troponin I (0.000-0.056) ng/mL B-Natriuretic Peptide 23 (<100) PG/ML Total Protein (6.4-8.2) g/dL Albumin (3.4-5.0) g/dL Globulin (2.6-4.0) g/dL Albumin/Globulin Ratio (0.9-1.6) Urine Color YELLOW Urine Appearance CLEAR Urine pH 6.0 (5.0-8.0) Ur Specific [place] 1.020 (1.001-1.035) Urine Protein NEGATIVE (NEGATIVE) mg/dL Urine Glucose (UA) NEGATIVE (NEGATIVE) mg/dL Urine Ketones TRACE H (NEGATIVE) mg/dL Urine Occult Blood NEGATIVE (NEGATIVE) Urine Nitrite NEGATIVE (NEGATIVE) Urine Bilirubin NEGATIVE (NEGATIVE) Urine Urobilinogen 1.0 (<2.0) EU/dL Ur Leukocyte Esterase NEGATIVE (NEGATIVE) SARS-CoV-2 RNA (BILL) NEGATIVE (NEGATIVE) Meds: Medications Generic Name Dose Route Start Last Admin Trade Name Poq PRN Reason Stop Dose Admin Heparin Sodium/Sodium Chloride 500 mls @ 1.842 mls/hr 10/22/20 18:45 Heparin 25,000 Units In / Ns 500 Ml IV TITRATE JOSTIN Protocol 1 UNITS/KG/HR Sodium Chloride 10 ml 10/22/20 14:04 10/22/20 14:14 Saline Flush FLUSH 10 ml ASDIRECTED PRN Administration Keep Vein Open Sodium Chloride 2.5 ml 10/22/20 14:04 10/22/20 14:14 Saline Flush FLUSH 2.5 ml ASDIRECTED PRN Administration Keep Vein Open Discontinued Medications Generic Name Dose Route Start Last Admin Trade Name Poq PRN Reason Stop Dose Admin Heparin Sodium (Porcine) 5,000 units 10/22/20 18:32 Heparin Sodium IVPUSH 10/22/20 18:33 .BOLUS ONE Protocol Sodium Chloride 1,000 mls @ 999 mls/hr 10/22/20 14:04 10/22/20 14:14 Normal Saline IV 10/22/20 15:04 999 mls/hr .Bolus ONE Administration Morphine Sulfate 4 mg 10/22/20 14:04 10/22/20 14:13 Morphine IVPUSH 10/22/20 14:05 4 mg ONETIME ONE Administration Morphine Sulfate 4 mg 10/22/20 17:45 10/22/20 17:50 Morphine IVPUSH 10/22/20 17:46 4 mg ONETIME ONE Administration - Re-Assessments/Exams Free Text/Narrative Re-Assessment/Exam: 10/22/20 16:49 Patient desatted 86% on room air, will perform CT angio chest given hypoxia status post surgery. 10/22/20 18:[address] Zazueta, who agrees to admit patient. The hospitalist's documentation supersedes all other documentation on this patient with regard to any conflicts or discrepancies from this point forward. Any emergency conditions have been treated to the ability of the ED prior to admission. Departure - Departure Time of Disposition: 18:36 Disposition: Admitted As Inpatient 64 Condition: Fair Clinical Impression: Pulmonary embolism, Self-care deficit, Hypoxia - Discharge Information Referrals: Vasu Yu CONTRACT MANAGEMENT SPECIALIST [Primary Care Provider] - Forms: ED Department Discharge Critical Care Note - Critical Care Note Total Time (mins): 40 Comments: CRITCAL CARE: The high probability of sudden, clinically significant deterioration in the patient's condition required the highest level of my preparedness to intervene urgently. The services I provided to this patient were to treat and/or prevent clinically significant deterioration. Services included the following: chart data review, reviewing nursing notes and/or old charts, documentation time, men's custom hair piece consultant collaboration regarding findings and treatment options, medication orders and management, direct patient care, vital sign assessments and ordering, interpreting and reviewing diagnostic studies/lab tests. Aggregate critical care time includes only time during which I was engaged in work directly related to the patient's care, as described above, whether at the bedside or elsewhere in the Emergency Department. It did not include time spent performing other reported procedures or the services of residents, students, nurses or physician assistants. Frequent interventions and/or frequent repeat evaluations were required as well as counseling and coordination of care regarding prognosis, treatments, and discussions with patient, staff and consultants. Critical Care (excluding other procedures): 40 minutes Sepsis Event Note (ED) - Evaluation Sepsis Screening Result: No Definite Risk - Focused Exam Vital Signs: Vital Signs Temp Pulse Resp BP Pulse Ox 10/22/20 16:43 86 L 10/22/20 16:28 71 18 133/70 90 L 10/22/20 13:45 98.2 F 63 17 127/66 91 L - My Orders Last 24 Hours: My Active Orders 10/22/20 14:04 Cardiac Monitoring [RC] . DIRECTED EKG Documentation Completion [RC] STAT Pulse Oximetry [RC] ASDIRECTED Sodium Chloride 0.9% [Saline Flush] 10 ml FLUSH ASDIRECTED PRN Sodium Chloride 0.9% [Saline Flush] 2.5 ml FLUSH ASDIRECTED PRN Saline Lock Insert [OM.PC] Stat 10/22/20 18:32 PTT,PARTIAL THROMBOPLSTIN TIME [COAG] Stat Heparin Sodium 5,000 units IVPUSH .BOLUS ONE 10/22/20 18:34 Patient Status [ADT] Routine 10/22/20 18:45 PTT,PARTIAL THROMBOPLSTIN TIME [COAG] Q6H Heparin Sodium/0.45% NaCl [Heparin 25,000 Units in 1/2 NS 500 ML] 500 ml IV TITRATE 10/23/20 00:45 PTT,PARTIAL THROMBOPLSTIN TIME [COAG] Q6H 10/23/20 06:45 PTT,PARTIAL THROMBOPLSTIN TIME [COAG] Q6H 10/23/20 12:45 PTT,PARTIAL THROMBOPLSTIN TIME [COAG] Q6H 10/23/20 18:45 PTT,PARTIAL THROMBOPLSTIN TIME [COAG] Q6H 10/24/20 00:45 PTT,PARTIAL THROMBOPLSTIN TIME [COAG] Q6H 10/24/20 06:45 PTT,PARTIAL THROMBOPLSTIN TIME [COAG] Q6H - Assessment/Plan Last 24 Hours: My Active Orders 10/22/20 14:04 Cardiac Monitoring [RC] . DIRECTED EKG Documentation Completion [RC] STAT Pulse Oximetry [RC] ASDIRECTED Sodium Chloride 0.9% [Saline Flush] 10 ml FLUSH ASDIRECTED PRN Sodium Chloride 0.9% [Saline Flush] 2.5 ml FLUSH ASDIRECTED PRN Saline Lock Insert [OM.PC] Stat 10/22/20 18:32 PTT,PARTIAL THROMBOPLSTIN TIME [COAG] Stat Heparin Sodium 5,000 units IVPUSH .BOLUS ONE 10/22/20 18:34 Patient Status [ADT] Routine 10/22/20 18:45 PTT,PARTIAL THROMBOPLSTIN TIME [COAG] Q6H Heparin Sodium/0.45% NaCl [Heparin 25,000 Units in 1/2 NS 500 ML] 500 ml IV TITRATE 10/23/20 00:45 PTT,PARTIAL THROMBOPLSTIN TIME [COAG] Q6H 10/23/20 06:45 PTT,PARTIAL THROMBOPLSTIN TIME [COAG] Q6H 10/23/20 12:45 PTT,PARTIAL THROMBOPLSTIN TIME [COAG] Q6H 10/23/20 18:45 PTT,PARTIAL THROMBOPLSTIN TIME [COAG] Q6H 10/24/20 00:45 PTT,PARTIAL THROMBOPLSTIN TIME [COAG] Q6H 10/24/20 06:45 PTT,PARTIAL THROMBOPLSTIN TIME [COAG] Q6H
[2020-10-22 14:51] LABS: BLOOD UREA NITROGEN,BUN 25 mg/dL (7.0-18.0); CARBON DIOXIDE,CO2 30.7 mmol/L (21.0-32.0); CHLORIDE,CL 98 mmol/L (98-107); GLUCOSE RANDOM 117 mg/dL (74-106); POTASSIUM,K 3.6 mmol/L (3.5-5.1); SODIUM,NA 140 mmol/L (136-148)
--- NOTE | 2020-10-22 16:17 | CR ---
Indication: Fall Technique: Chest 1 view Comparison: September 29, 2020 Findings/Impression: Stable cardiomediastinal silhouette. Lung volumes are low. No focal infiltrate, effusion, or pneumothorax. No acute osseous abnormality. Dictated by Nancy Dobson MD @ Oct 22 2020 4:14PM Signed by Dr. Nancy Dobson @ Oct 22 2020 4:16PM
--- NOTE | 2020-10-22 16:23 | US ---
INDICATION: Fall, pain, history of prior DVT TECHNIQUE: : Ultrasound venous duplex lower extremity bilateral. Compression venous exam was performed using maddox-scale, color Doppler, and spectral Doppler imaging. COMPARISON: None FINDINGS: Sonographic imaging demonstrates the common femoral, deep femoral, superficial femoral, popliteal, posterior tibial and greater saphenous veins to be fully compressible with normal color Doppler blood flow in both lower extremities. IMPRESSION: Normal bilateral lower extremity venous ultrasound, no sign of deep venous thrombosis. Dictated by Nancy Dobson MD @ Oct 22 2020 4:23PM Signed by Dr. Nancy Dobson @ Oct 22 2020 4:23PM
--- NOTE | 2020-10-22 16:23 | CR ---
Indication: Fall Technique: Three views bilateral wrists Comparison: None Findings: Bones: Alignment is normal. No fractures or bone lesions. Joint spaces: Severe degenerative changes at the bilateral triscaphe joints. Moderate degenerative changes at the bilateral 1st CMC joints. Soft tissues: Soft tissue swelling along the dorsum of the right hand. Impression: Soft tissue swelling along the dorsum of the right hand. No fracture or subluxation identified in either wrist. Degenerative changes in the carpal and metacarpal joints as described above. Dictated by Nancy Dobson MD @ Oct 22 2020 4:16PM Signed by Dr. Nancy Dobson @ Oct 22 2020 4:21PM
--- NOTE | 2020-10-22 16:28 | CR ---
Indication: Pain after fall Technique: Frontal and lateral views of both femurs Comparison: None Findings: Bones: Alignment is normal. No fractures or bone lesions. Joint spaces: Mild tricompartmental degenerative changes in the knee joint. Soft tissues: Tiny foreign body in the soft tissues posteromedial to the distal right femur. Mild vascular calcifications. Impression: No acute fracture or subluxation in either femur. Punctate foreign body in the soft tissues posteromedial to the distal right femur, likely chronic in nature. Correlate with any open wound in this region. Dictated by Nancy Dobson MD @ Oct 22 2020 4:26PM Signed by Dr. Nancy Dobson @ Oct 22 2020 4:26PM
--- NOTE | 2020-10-22 18:20 | CT ---
INDICATION: Dyspnea. Hypoxia. Recent surgery. COMPARISON: Plain film 29 September 2020. TECHNIQUE: 100 mL Isovue-370 IV contrast. FINDINGS: Somewhat an adequate bolus timing with dense contrast in the systemic venous system and less dense contrast in the pulmonary arterial system. Low attenuation filling defect is present in the right upper lobe anterior and posterior segments proximally. Low attenuation filling defect is nonocclusive in the posterior segment right lower lobe. Normal aortic caliber. No right heart strain findings. Mild circumferential thickening of the distal esophagus may be small hiatus hernia. Is esophagitis not excluded. No finding of significance in the upper abdomen. Peripelvic cysts of both kidneys more prominent on the left. Slight elevation of the right hemidiaphragm. No pulmonary parenchymal finding of significance. IMPRESSION: Although bolus timing is suboptimal there does appear to be nonocclusive small volume of pulmonary embolism in the right upper lobe and right lower lobe. No right heart strain findings. Results discussed with and acknowledged by Dr. Campa at 1820 October,. Please note that all CT scans at this facility use dose modulation, iterative reconstruction, and/or weight-based dosing when appropriate to reduce radiation dose to as low as reasonably achievable. Dictated by Getachew Vazquez MD @ Oct 22 2020 6:20PM Signed by Dr. Getachew Vazquez @ Oct 22 2020 6:20PM
[2020-10-22] MEDS ORDERED: Heparin Sodium 5,000 Units/ML Vial IVPUSH ONE (18:32)
[2020-10-22] MEDS: Heparin Sodium/0.45% NaCl 500 ML IV SCH (18:54)
[2020-10-22] MEDS ORDERED: Iopamidol 755 MG/ML 500 ML Multipack Bottle IVPUSH STA (19:15)
[2020-10-22] MEDS ORDERED: Morphine 10 MG/ML Syringe IVPUSH PRN (19:21)
[2020-10-22] MEDS ORDERED: Albuterol/Ipratropium 3.0-0.5 MG/3 ML Neb Soln NEB PRN (19:21)
[2020-10-22] MEDS ORDERED: Ondansetron 4 MG Tab.DIS PO PRN (19:21)
[2020-10-22] MEDS ORDERED: Ibuprofen 400 MG Tab PO PRN (19:21)
--- NOTE | 2020-10-22 19:21 | PCM.HP.2 ---
<Willi Harmon - Last Filed: 10/23/20 08:08> H&P History of Present Illness - General Date of Service: 10/22/20 Admit Problem/Dx: Admission Diagnosis/Problem Admission Diagnosis/Problem Pulmonary embolism Source of Information: Patient History Limitations: Reports: No Limitations - History of Present Illness Initial Comments - Free Text/Narative: Patient is a 74-year-old male with significant past medical history of hypertension, diabetes, hyperlipidemia, coronary artery disease status post stent placement in 2019; presenting today to the ED for generalized weakness. ED notes: Patient is status post right shoulder rotator cuff surgery on 10/14/[address] Hughes [facility] the [facility] in [place]. Patient was discharged with oxycodone and tramadol for pain. Since Monday patient has been nonambulatory while healing and unfortunately fell off his couch landing on his backside. Patient endorses to the ED physician being on the floor for 4-6 hours and was unable to get back to the couch. Presented to the ED with bilateral wrist pain, bilateral femur pain via EMS as instructed by his home health nurse . Denies any loss of consciousness and or head trauma. Denies any shortness of breath, abdominal pain, nausea ,vomiting, diarrhea,. ED course: Chest x-ray no acute infiltrate/effusion/pneumothorax. Stable cardio mild mediastinal silhouette with low lung volumes. Wrist x-ray: Soft tissue swelling along dorsum of right hand. No acute fracture/dislocation or subluxation noted. Positive DJD X-ray femur 2 views bilaterally: No acute fracture and no dislocation in either femur Venous Doppler: No acute signs of deep venous thrombosis. Bedside: Patient endorses similar story as above and mentions being at home alone with significant weakness unable to get up from the floor to the couch. States that he possibly slept for 1 to 2 days as he cannot recall which day it was when his home health nurse had presented herself for a routine check. Patient mentions significant pain in right shoulder right wrist/left wrist and lower extremity legs. Mentions however pain medication provided in ED is helping. Currently denies any chest pain, shortness of breath, confusion. Right Shoulder Pain Score (Numeric/FACES): 6 - Related Data Allergies/Adverse Reactions: Allergies Allergy/AdvReac Type Severity Reaction Status Date / Time Fish Containing Products Allergy Nausea and Verified 10/22/20 21:39 Vomiting shellfish derived Allergy Cannot Verified 10/22/20 21:39 Remember dust Allergy Sneezing Uncoded 10/22/20 21:39 Home Medications: Home Meds Aspirin [Adult Low Dose Aspirin EC] 81 mg PO DAILY 08/10/16 [History] Gabapentin [Neurontin] 400 mg PO TID 08/10/16 [History] Multivitamin [Multivitamins] 1 cap PO DAILY 08/10/16 [History] Pantoprazole Sodium 40 mg PO DAILY 08/10/16 [History] Zolpidem Tartrate 5 mg PO BEDTIME PRN 08/10/16 [History] amLODIPine Besylate [Amlodipine Besylate] 10 mg PO DAILY 08/10/16 [History] atenoloL [Atenolol] 100 mg PO BEDTIME 08/10/16 [History] atorvaSTATin Calcium [Atorvastatin Calcium] 80 mg PO BEDTIME 08/10/16 [History] Nitroglycerin [Nitrostat] 0.4 mg SL Q5M PRN tab.sl 12/01/18 [Rx] Alendronate Sodium [Fosamax] 70 mg PO WEEKLY 10/23/20 [History] Ascorbic Acid [C-500] 500 mg PO DAILY 10/23/20 [History] Budesonide/Formoterol Fumarate [Budesonide-Formoterol 160-4.5] 2 inh IH BEDTIME 10/23/20 [History] Cetirizine HCl 10 mg PO DAILY 10/23/20 [History] Chlorthalidone 25 mg PO DAILY 10/23/20 [History] Cyclobenzaprine [Flexeril] 10 mg PO TID PRN 10/23/20 [History] Ergocalciferol (Vitamin D2) [Vitamin D2] 10 mcg PO DAILY 10/23/20 [History] Ezetimibe 10 mg PO BEDTIME 10/23/20 [History] Losartan [Cozaar] 25 mg PO DAILY 10/23/20 [History] Potassium Chloride [Klor-Con 10] 30 meq PO BIDMEALS 10/23/20 [History] Sildenafil [Viagra] 50 mg PO .ONE HOUR PRIOR PRN 10/23/20 [History] Tamsulosin [Flomax] 0.4 mg PO WITHDINNER 10/23/20 [History] Testosterone [Androderm] 4 mg TD Q24H 10/23/20 [History] Venlafaxine [Effexor] 25 mg PO BID 10/23/20 [History] metFORMIN [Glucophage] 250 mg PO BIDMEALS 10/23/20 [History] traMADol [Ultram] 50 mg PO BID PRN 10/23/20 [History] Past Medical History HEENT History: Reports: Allergic Rhinitis, Hard of Hearing Other HEENT History: wears glasses, has upper denture, has hearing aides but doesn't wear them Cardiovascular History: Reports: Blood Clots/VTE/DVT, High Cholesterol, Hypertension, [place] Other Cardiovascular History: X 3 stents placed in 2018 Respiratory History: Reports: Asthma Other Respiratory History: possible asthma, but mostly allergies that cause breathing problems Gastrointestinal History: Reports: GERD Genitourinary History: Reports: BPH Musculoskeletal History: Reports: None Other Musculoskeletal History: hx of fx bilateral legs and ribs Neurological History: Reports: Other (See Below) Other Neuro History: degenerative disc disease Psychiatric History: Reports: Anxiety, Depression Endocrine/Metabolic History: Reports: Diabetes, Type II Hematologic History: Reports: None Immunologic History: Reports: None Oncologic (Cancer) History: Reports: None Dermatologic History: Reports: None - Infectious Disease History Infectious Disease History: Reports: Chicken Pox, Measles, Mumps, Rubella - Past Surgical History Head Surgeries/Procedures: Reports: None HEENT Surgical History: Reports: None Cardiovascular Surgical History: Reports: Coronary Artery Stent Respiratory Surgical History: Reports: None GI Surgical History: Reports: Colonoscopy, EGD Male Surgical History: Reports: None Endocrine Surgical History: Reports: None Neurological Surgical History: Reports: None, Other (See Below) Other Neurological Surgeries/Procedures: Back surgery of some kind Musculoskeletal Surgical History: Reports: Other (See Below) Other Musculoskeletal Surgeries/Procedures:: R Ankle replacement Oncologic Surgical History: Reports: None Dermatological Surgical History: Reports: None Social & Family History - Family History Family Medical History: No Pertinent Family History - Tobacco Use Tobacco Use Status *Q: Never Tobacco User - Caffeine Use Caffeine Use: Reports: Coffee - Recreational Drug Use Recreational Drug Use: No H&P Review of Systems - Review of Systems: Review Of Systems: See Below General: Reports: Weakness HEENT: Reports: No Symptoms Pulmonary: Denies: Shortness of Breath, Wheezing, Pleuritic Chest Pain, Cough Cardiovascular: Reports: No Symptoms Gastrointestinal: Reports: No Symptoms Genitourinary: Reports: No Symptoms Musculoskeletal: Reports: Shoulder Pain, Arm Pain, Hand Pain, Leg Pain, Muscle Pain Skin: Reports: Bruising Psychiatric: Denies: Confusion, Depression Neurological: Reports: Weakness. Denies: Confusion, Dizziness, Headache, Numbness Hematologic/Lymphatic: Reports: Easy Bleeding, Easy Bruising Exam - Exam Exam: See Below - Vital Signs Vital Signs: Last Vital Signs Temp 98.2 F 10/22/20 13:45 Pulse 71 10/22/20 16:28 Resp 18 10/22/20 16:28 BP 133/70 10/22/20 16:28 Pulse Ox 86 L 10/22/20 16:43 Weight: 92.079 kg - Exam Quality Assessment: Supplemental Oxygen General: Alert, Oriented, Cooperative HEENT: EOMI, Mucosa Moist & [place] Neck: Supple, Trachea Midline Lungs: Normal Respiratory Effort Cardiovascular: Regular Rate, Regular Rhythm GI/Abdominal Exam: Soft, Non-Tender Back Exam: Muscle Spasm Extremities: Other (tenderness noted over large muscle areaa particularly the lateral thighs bilaterally. ...right wriser/hand moderately swollen ; right shoulder : covered in dressing; pain w. passive/active ROM. multiple areas of eccymopsis noted ; could not evaluate senior client advisor back secondary to patinet pain . ) Neuro Extensive - Mental Status: Alert, Oriented x3 Psychiatric: Alert, Normal Affect, Normal Mood - Patient Data Lab Results Last 24 hrs: Laboratory Results - last 24 hr 10/22/20 10/22/20 10/22/20 Range/Units 14:16 14:16 14:16 WBC 6.76 (4.0-11.0) K/uL RBC 4.77 (4.50-5.90) M/uL Hgb 14.2 (13.0-17.0) g/dL Hct 41.8 (38.0-50.0) % MCV 87.6 (80.0-98.0) fL MCH 29.8 (27.0-32.0) pg MCHC 34.0 (31.0-37.0) g/dL RDW Std Deviation 42.6 (28.0-62.0) fl RDW Coeff of Alfonso 13 (11.0-15.0) % Plt Count 255 (150-400) K/uL MPV 10.00 (7.40-12.00) fL Neut % (Auto) 70.3 (48.0-80.0) % Lymph % (Auto) 15.1 L (16.0-40.0) % [place] % (Auto) 10.7 (0.0-15.0) % Eos % (Auto) 3.3 (0.0-7.0) % Baso % (Auto) 0.6 (0.0-1.5) % Neut # (Auto) 4.8 (1.4-5.7) K/uL Lymph # (Auto) 1.0 (0.6-2.4) K/uL [place] # (Auto) 0.7 (0.0-0.8) K/uL Eos # (Auto) 0.2 (0.0-0.7) K/uL Baso # (Auto) 0.0 (0.0-0.1) K/uL Nucleated RBC % 0.0 /100WBC Nucleated RBCs # 0 K/uL Lactate 1.1 (0.20-2.00) mmol/L Sodium 140 (136-148) mmol/L Potassium 3.6 (3.5-5.1) mmol/L Chloride 98 (98-107) mmol/L Carbon Dioxide 30.7 (21.0-32.0) mmol/L BUN 25 H (7.0-18.0) mg/dL Creatinine 1.0 (0.8-1.3) mg/dL Est Cr Clr Drug Dosing 64.89 mL/min Estimated GFR (MDRD) > 60.0 ml/min Glucose 117 H (74-106) mg/dL Calcium 9.3 (8.5-10.1) mg/dL Phosphorus 3.6 (2.6-4.7) mg/dL Magnesium 2.1 (1.8-2.4) mg/dL Total Bilirubin 1.0 (0.2-1.0) mg/dL AST 33 (15-37) IU/L ALT 24 (14-63) IU/L Alkaline Phosphatase 90 (46-116) U/L Creatine Kinase 323 H (26-308) U/L Troponin I < 0.050 (0.000-0.056) ng/mL B-Natriuretic Peptide (<100) PG/ML Total Protein 7.2 (6.4-8.2) g/dL Albumin 2.9 L (3.4-5.0) g/dL Globulin 4.3 H (2.6-4.0) g/dL Albumin/Globulin Ratio 0.7 L (0.9-1.6) Urine Color Urine Appearance Urine pH (5.0-8.0) Ur Specific [place] (1.001-1.035) Urine Protein (NEGATIVE) mg/dL Urine Glucose (UA) (NEGATIVE) mg/dL Urine Ketones (NEGATIVE) mg/dL Urine Occult Blood (NEGATIVE) Urine Nitrite (NEGATIVE) Urine Bilirubin (NEGATIVE) Urine Urobilinogen (<2.0) EU/dL Ur Leukocyte Esterase (NEGATIVE) SARS-CoV-2 RNA (BILL) (NEGATIVE) 10/22/20 10/22/20 10/22/20 Range/Units 14:16 15:35 16:47 WBC (4.0-11.0) K/uL RBC (4.50-5.90) M/uL Hgb (13.0-17.0) g/dL Hct (38.0-50.0) % MCV (80.0-98.0) fL MCH (27.0-32.0) pg MCHC (31.0-37.0) g/dL RDW Std Deviation (28.0-62.0) fl RDW Coeff of Alfonso (11.0-15.0) % Plt Count (150-400) K/uL MPV (7.40-12.00) fL Neut % (Auto) (48.0-80.0) % Lymph % (Auto) (16.0-40.0) % [place] % (Auto) (0.0-15.0) % Eos % (Auto) (0.0-7.0) % Baso % (Auto) (0.0-1.5) % Neut # (Auto) (1.4-5.7) K/uL Lymph # (Auto) (0.6-2.4) K/uL [place] # (Auto) (0.0-0.8) K/uL Eos # (Auto) (0.0-0.7) K/uL Baso # (Auto) (0.0-0.1) K/uL Nucleated RBC % /100WBC Nucleated RBCs # K/uL Lactate (0.20-2.00) mmol/L Sodium (136-148) mmol/L Potassium (3.5-5.1) mmol/L Chloride (98-107) mmol/L Carbon Dioxide (21.0-32.0) mmol/L BUN (7.0-18.0) mg/dL Creatinine (0.8-1.3) mg/dL Est Cr Clr Drug Dosing mL/min Estimated GFR (MDRD) ml/min Glucose (74-106) mg/dL Calcium (8.5-10.1) mg/dL Phosphorus (2.6-4.7) mg/dL Magnesium (1.8-2.4) mg/dL Total Bilirubin (0.2-1.0) mg/dL AST (15-37) IU/L ALT (14-63) IU/L Alkaline Phosphatase (46-116) U/L Creatine Kinase (26-308) U/L Troponin I (0.000-0.056) ng/mL B-Natriuretic Peptide 23 (<100) PG/ML Total Protein (6.4-8.2) g/dL Albumin (3.4-5.0) g/dL Globulin (2.6-4.0) g/dL Albumin/Globulin Ratio (0.9-1.6) Urine Color YELLOW Urine Appearance CLEAR Urine pH 6.0 (5.0-8.0) Ur Specific [place] 1.020 (1.001-1.035) Urine Protein NEGATIVE (NEGATIVE) mg/dL Urine Glucose (UA) NEGATIVE (NEGATIVE) mg/dL Urine Ketones TRACE H (NEGATIVE) mg/dL Urine Occult Blood NEGATIVE (NEGATIVE) Urine Nitrite NEGATIVE (NEGATIVE) Urine Bilirubin NEGATIVE (NEGATIVE) Urine Urobilinogen 1.0 (<2.0) EU/dL Ur Leukocyte Esterase NEGATIVE (NEGATIVE) SARS-CoV-2 RNA (BILL) NEGATIVE (NEGATIVE) Result Diagrams: 10/22/20 14:16 10/22/20 14:16 Sepsis Event Note - Evaluation Sepsis Screening Result: No Definite Risk - Focused Exam Vital Signs: Vital Signs Temp Pulse Resp BP Pulse Ox 10/22/20 16:43 86 L 10/22/20 16:28 71 18 133/70 90 L 10/22/20 13:45 98.2 F 63 17 127/66 91 L - Problem List (1) Hypoxia SNOMED Code(s): 081990560 ICD Code: R09.02 - HYPOXEMIA Status: Acute Current Visit: Yes (2) Pulmonary embolism SNOMED Code(s): 76527065 ICD Code: I26.99 - OTHER PULMONARY EMBOLISM WITHOUT ACUTE COR PULMONALE Status: Acute Current Visit: Yes Problem List Initiated/Reviewed/Updated: Yes Orders Last 24hrs: Active Orders 24 hr Category Date Time Status Patient Status [ADT] Routine ADT 10/22/20 18:34 Active Cardiac Monitoring [RC] Q8H Care 10/22/20 14:04 Active EKG Documentation Completion [RC] STAT Care 10/22/20 14:04 Active Pulse Oximetry [RC] ASDIRECTED Care 10/22/20 14:04 Active PTT,PARTIAL THROMBOPLSTIN TIME [COAG] Q6H Lab 10/22/20 18:45 Ordered PTT,PARTIAL THROMBOPLSTIN TIME [COAG] Q6 Lab 10/23/20 00:45 Ordered PTT,PARTIAL THROMBOPLSTIN TIME [COAG] Q6 Lab 10/23/20 06:45 Ordered PTT,PARTIAL THROMBOPLSTIN TIME [COAG] Q6 Lab 10/23/20 12:45 Ordered PTT,PARTIAL THROMBOPLSTIN TIME [COAG] Q6 Lab 10/23/20 18:45 Ordered PTT,PARTIAL THROMBOPLSTIN TIME [COAG] Q6 Lab 10/24/20 00:45 Ordered PTT,PARTIAL THROMBOPLSTIN TIME [COAG] Q6 Lab 10/24/20 06:45 Ordered PTT,PARTIAL THROMBOPLSTIN TIME [COAG] Stat Lab 10/22/20 18:32 Ordered Heparin Sodium/0.45% NaCl [Heparin 25,000 Units in 1/2 Med 10/22/20 18:45 Active NS 500 ML] 500 ml IV TITRATE Sodium Chloride 0.9% [Saline Flush] Med 10/22/20 14:04 Active 10 ml FLUSH ASDIRECTED PRN Sodium Chloride 0.9% [Saline Flush] Med 10/22/20 14:04 Active 2.5 ml FLUSH ASDIRECTED PRN Saline Lock Insert [OM.PC] Stat Oth 10/22/20 14:04 Ordered Medication Orders Heparin Sodium/Sodium Chloride (Heparin 25,000 Units In 1/2 Ns 500 Ml) 500 mls @ 1.842 mls/hr IV TITRATE JOSTIN; Protocol Last Admin: 10/22/20 18:54 Dose: 18 units/kg/hr, 33.148 mls/hr Documented by: LUIS Cosigned by: PAVITHRA Sodium Chloride (Saline Flush) 10 ml FLUSH ASDIRECTED PRN PRN Reason: Keep Vein Open Last Admin: 10/22/20 14:14 Dose: 10 ml Documented by: LUIS Sodium Chloride (Saline Flush) 2.5 ml FLUSH ASDIRECTED PRN PRN Reason: Keep Vein Open Last Admin: 10/22/20 14:14 Dose: 2.5 ml Documented by: LUIS Assessment/Plan Comment:: Assessment: 1. Acute hypoxic respiratory failure secondary to pulmonary emboli (right upper/lower lobe) 2. Status post right shoulder/rotator cuff surgery POD#8 3. Generalized weakness 4. Elevated CPK 4. Past medical history: Type 2 diabetes, hypertension, hyperlipidemia, coronary artery disease status post stent, depression/anxiety. Plan: Admit to inpatient. Full code. I's and O's per routine. vitals per routine. Up with assistance. Diet: diabetic Gi prophylaxis: pantoprazole 40 daily Full dose heparin 1. Acute hypoxic respiratory failure secondary to pulmonary emboli: Heparin drip initiated. Will start anticoagulation bridging w. Warfarin if suitable; pt endorses this may be an issue with INR checks ; may have to consider DOAC therapy if feasible. DUO-nebs PRN and o2 supplantation w/ sats maintained >92% 2. Elevated CPK: most likely from prolonged immobilization; continue fluids NS and avoid nephrotoxins Generalized muscle tenderness; recheck CPK in AM On telemetry 3. Generalized weakness: POD#8 ; will order a PT/OT consult as patient lives alone and requires home health care 4. DM: SSI+TID accu-checks 5. HTN: restart amlodipine/atenolol; hold HCTZ/lisinopril once hydration status is improved; including creatinine 6. HLD: hold statin in light of significant CPK increase and myalgia; restart once appropriate 7. CAD s/p PCI: continue ASA; hold plavix until verified; pt mentions having not been on plavix for > 1 year ; continue telemetry 8. Depression/anxiety: continue SSRI UA negative COVID negative LAD PCI FALGUNI 11/05/2018 ECHO 2019: preserved LVEF, mild MR , Mild TR , trace TR <Diya Zazueta - Last Filed: 10/24/20 14:39> H&P History of Present Illness - General Admit Problem/Dx: Admission Diagnosis/Problem Admission Diagnosis/Problem Pulmonary embolism Exam - Vital Signs Vital Signs: Last Vital Signs Temp 36.6 C 10/22/20 20:30 Pulse 79 10/22/20 20:30 Resp 16 10/22/20 20:30 BP 131/73 10/22/20 20:30 Pulse Ox 96 10/22/20 20:30 - Patient Data Lab Results Last 24 hrs: Laboratory Results - last 24 hr 10/22/20 10/22/20 10/22/20 Range/Units 14:16 14:16 14:16 WBC 6.76 (4.0-11.0) K/uL RBC 4.77 (4.50-5.90) M/uL Hgb 14.2 (13.0-17.0) g/dL Hct 41.8 (38.0-50.0) % MCV 87.6 (80.0-98.0) fL MCH 29.8 (27.0-32.0) pg MCHC 34.0 (31.0-37.0) g/dL RDW Std Deviation 42.6 (28.0-62.0) fl RDW Coeff of Alfonso 13 (11.0-15.0) % Plt Count 255 (150-400) K/uL MPV 10.00 (7.40-12.00) fL Neut % (Auto) 70.3 (48.0-80.0) % Lymph % (Auto) 15.1 L (16.0-40.0) % [place] % (Auto) 10.7 (0.0-15.0) % Eos % (Auto) 3.3 (0.0-7.0) % Baso % (Auto) 0.6 (0.0-1.5) % Neut # (Auto) 4.8 (1.4-5.7) K/uL Lymph # (Auto) 1.0 (0.6-2.4) K/uL [place] # (Auto) 0.7 (0.0-0.8) K/uL Eos # (Auto) 0.2 (0.0-0.7) K/uL Baso # (Auto) 0.0 (0.0-0.1) K/uL Nucleated RBC % 0.0 /100WBC Nucleated RBCs # 0 K/uL APTT (18.6-31.3) SEC Lactate 1.1 (0.20-2.00) mmol/L Sodium 140 (136-148) mmol/L Potassium 3.6 (3.5-5.1) mmol/L Chloride 98 (98-107) mmol/L Carbon Dioxide 30.7 (21.0-32.0) mmol/L BUN 25 H (7.0-18.0) mg/dL Creatinine 1.0 (0.8-1.3) mg/dL Est Cr Clr Drug Dosing 64.89 mL/min Estimated GFR (MDRD) > 60.0 ml/min Glucose 117 H (74-106) mg/dL Calcium 9.3 (8.5-10.1) mg/dL Phosphorus 3.6 (2.6-4.7) mg/dL Magnesium 2.1 (1.8-2.4) mg/dL Total Bilirubin 1.0 (0.2-1.0) mg/dL AST 33 (15-37) IU/L ALT 24 (14-63) IU/L Alkaline Phosphatase 90 (46-116) U/L Creatine Kinase 323 H (26-308) U/L Troponin I < 0.050 (0.000-0.056) ng/mL B-Natriuretic Peptide (<100) PG/ML Total Protein 7.2 (6.4-8.2) g/dL Albumin 2.9 L (3.4-5.0) g/dL Globulin 4.3 H (2.6-4.0) g/dL Albumin/Globulin Ratio 0.7 L (0.9-1.6) Urine Color Urine Appearance Urine pH (5.0-8.0) Ur Specific [place] (1.001-1.035) Urine Protein (NEGATIVE) mg/dL Urine Glucose (UA) (NEGATIVE) mg/dL Urine Ketones (NEGATIVE) mg/dL Urine Occult Blood (NEGATIVE) Urine Nitrite (NEGATIVE) Urine Bilirubin (NEGATIVE) Urine Urobilinogen (<2.0) EU/dL Ur Leukocyte Esterase (NEGATIVE) SARS-CoV-2 RNA (BILL) (NEGATIVE) 10/22/20 10/22/20 10/22/20 Range/Units 14:16 15:35 16:47 WBC (4.0-11.0) K/uL RBC (4.50-5.90) M/uL Hgb (13.0-17.0) g/dL Hct (38.0-50.0) % MCV (80.0-98.0) fL MCH (27.0-32.0) pg MCHC (31.0-37.0) g/dL RDW Std Deviation (28.0-62.0) fl RDW Coeff of Alfonso (11.0-15.0) % Plt Count (150-400) K/uL MPV (7.40-12.00) fL Neut % (Auto) (48.0-80.0) % Lymph % (Auto) (16.0-40.0) % [place] % (Auto) (0.0-15.0) % Eos % (Auto) (0.0-7.0) % Baso % (Auto) (0.0-1.5) % Neut # (Auto) (1.4-5.7) K/uL Lymph # (Auto) (0.6-2.4) K/uL [place] # (Auto) (0.0-0.8) K/uL Eos # (Auto) (0.0-0.7) K/uL Baso # (Auto) (0.0-0.1) K/uL Nucleated RBC % /100WBC Nucleated RBCs # K/uL APTT (18.6-31.3) SEC Lactate (0.20-2.00) mmol/L Sodium (136-148) mmol/L Potassium (3.5-5.1) mmol/L Chloride (98-107) mmol/L Carbon Dioxide (21.0-32.0) mmol/L BUN (7.0-18.0) mg/dL Creatinine (0.8-1.3) mg/dL Est Cr Clr Drug Dosing mL/min Estimated GFR (MDRD) ml/min Glucose (74-106) mg/dL Calcium (8.5-10.1) mg/dL Phosphorus (2.6-4.7) mg/dL Magnesium (1.8-2.4) mg/dL Total Bilirubin (0.2-1.0) mg/dL AST (15-37) IU/L ALT (14-63) IU/L Alkaline Phosphatase (46-116) U/L Creatine Kinase (26-308) U/L Troponin I (0.000-0.056) ng/mL B-Natriuretic Peptide 23 (<100) PG/ML Total Protein (6.4-8.2) g/dL Albumin (3.4-5.0) g/dL Globulin (2.6-4.0) g/dL Albumin/Globulin Ratio (0.9-1.6) Urine Color YELLOW Urine Appearance CLEAR Urine pH 6.0 (5.0-8.0) Ur Specific [place] 1.020 (1.001-1.035) Urine Protein NEGATIVE (NEGATIVE) mg/dL Urine Glucose (UA) NEGATIVE (NEGATIVE) mg/dL Urine Ketones TRACE H (NEGATIVE) mg/dL Urine Occult Blood NEGATIVE (NEGATIVE) Urine Nitrite NEGATIVE (NEGATIVE) Urine Bilirubin NEGATIVE (NEGATIVE) Urine Urobilinogen 1.0 (<2.0) EU/dL Ur Leukocyte Esterase NEGATIVE (NEGATIVE) SARS-CoV-2 RNA (BILL) NEGATIVE (NEGATIVE) 10/22/20 Range/Units 22:17 WBC (4.0-11.0) K/uL RBC (4.50-5.90) M/uL Hgb (13.0-17.0) g/dL Hct (38.0-50.0) % MCV (80.0-98.0) fL MCH (27.0-32.0) pg MCHC (31.0-37.0) g/dL RDW Std Deviation (28.0-62.0) fl RDW Coeff of Alfon[place] (11.0-15.0) % Plt Count (150-400) K/uL MPV (7.40-12.00) fL Neut % (Auto) (48.0-80.0) % Lymph % (Auto) (16.0-40.0) % [place] % (Auto) (0.0-15.0) % Eos % (Auto) (0.0-7.0) % Baso % (Auto) (0.0-1.5) % Neut # (Auto) (1.4-5.7) K/uL Lymph # (Auto) (0.6-2.4) K/uL [place] # (Auto) (0.0-0.8) K/uL Eos # (Auto) (0.0-0.7) K/uL Baso # (Auto) (0.0-0.1) K/uL Nucleated RBC % /100WBC Nucleated RBCs # K/uL APTT 69.2 H (18.6-31.3) SEC Lactate (0.20-2.00) mmol/L Sodium (136-148) mmol/L Potassium (3.5-5.1) mmol/L Chloride (98-107) mmol/L Carbon Dioxide (21.0-32.0) mmol/L BUN (7.0-18.0) mg/dL Creatinine (0.8-1.3) mg/dL Est Cr Clr Drug Dosing mL/min Estimated GFR (MDRD) ml/min Glucose (74-106) mg/dL Calcium (8.5-10.1) mg/dL Phosphorus (2.6-4.7) mg/dL Magnesium (1.8-2.4) mg/dL Total Bilirubin (0.2-1.0) mg/dL AST (15-37) IU/L ALT (14-63) IU/L Alkaline Phosphatase (46-116) U/L Creatine Kinase (26-308) U/L Troponin I (0.000-0.056) ng/mL B-Natriuretic Peptide (<100) PG/ML Total Protein (6.4-8.2) g/dL Albumin (3.4-5.0) g/dL Globulin (2.6-4.0) g/dL Albumin/Globulin Ratio (0.9-1.6) Urine Color Urine Appearance Urine pH (5.0-8.0) Ur Specific [place] (1.001-1.035) Urine Protein (NEGATIVE) mg/dL Urine Glucose (UA) (NEGATIVE) mg/dL Urine Ketones (NEGATIVE) mg/dL Urine Occult Blood (NEGATIVE) Urine Nitrite (NEGATIVE) Urine Bilirubin (NEGATIVE) Urine Urobilinogen (<2.0) EU/dL Ur Leukocyte Esterase (NEGATIVE) SARS-CoV-2 RNA (BILL) (NEGATIVE) Result Diagrams: 10/24/20 06:10 10/24/20 06:10 Sepsis Event Note - Focused Exam Vital Signs: Vital Signs Temp Pulse Resp BP Pulse Ox 10/22/20 20:30 36.6 C 79 16 131/73 96 10/22/20 16:43 86 L 10/22/20 16:28 71 18 133/70 90 L 10/22/20 13:45 36.8 C 63 17 127/66 91 L Orders Last 24hrs: Active Orders 24 hr Category Date Time Status Patient Status [ADT] Routine ADT 10/22/20 18:34 Active Blood Glucose Check, Bedside [RC] TIDMEALS Care 10/22/20 19:21 Active Cardiac Monitoring [RC] Q8H Care 10/22/20 14:04 Active EKG Documentation Completion [RC] STAT Care 10/22/20 14:04 Active Oxygen Therapy [RC] PRN Care 10/22/20 19:21 Active Pulse Oximetry [RC] ASDIRECTED Care 10/22/20 14:04 Active RT Aerosol Therapy [RC] ASDIRECTED Care 10/22/20 19:22 Active Up With Assistance [RC] ASDIRECTED Care 10/22/20 19:21 Active VTE/DVT Education [RC] PER UNIT ROUTINE Care 10/22/20 19:21 Active Vital Signs [RC] Q4H Care 10/22/20 19:21 Active Consult to Physical Therapy [PT Evaluation and Cons 10/22/20 19:41 Active Treatment] [CONS] Routine [employer] Diet [DIET] Diet 10/22/20 Breakfast Active CBC WITH AUTO DIFF [HEME] AM Lab 10/23/20 05:11 Ordered CBC WITH AUTO DIFF [HEME] AM Lab 10/24/20 05:11 Ordered CBC WITH AUTO DIFF [HEME] AM Lab 10/25/20 05:11 Ordered COMPREHENSIVE METABOLIC PN,CMP [CHEM] AM Lab 10/23/20 05:11 Ordered COMPREHENSIVE METABOLIC PN,CMP [CHEM] AM Lab 10/24/20 05:11 Ordered COMPREHENSIVE METABOLIC PN,CMP [CHEM] AM Lab 10/25/20 05:11 Ordered CREATINE KINASE,CK [CHEM] AM Lab 10/23/20 05:11 Ordered PTT,PARTIAL THROMBOPLSTIN TIME [COAG] Q6H Lab 10/23/20 00:45 Ordered PTT,PARTIAL THROMBOPLSTIN TIME [COAG] Q6H Lab 10/23/20 06:45 Ordered PTT,PARTIAL THROMBOPLSTIN TIME [COAG] Q6H Lab 10/23/20 12:45 Ordered PTT,PARTIAL THROMBOPLSTIN TIME [COAG] Q6H Lab 10/23/20 18:45 Ordered PTT,PARTIAL THROMBOPLSTIN TIME [COAG] Q6H Lab 10/24/20 00:45 Ordered PTT,PARTIAL THROMBOPLSTIN TIME [COAG] Q6H Lab 10/24/20 06:45 Ordered Acetaminophen [Tylenol Extra Strength] Med 10/22/20 19:32 Active 500 mg PO Q6H PRN Albuterol/Ipratropium [DuoNeb 3.0-0.5 MG/3 ML] Med 10/22/20 19:21 Active 3 ml NEB Q4HRRT PRN Aspirin [Halfprin] Med 10/23/20 09:00 Unverified DOSE UNIT RTE FREQ Dextrose 50% in Water Med 10/22/20 19:31 Active 50 ml IV ASDIRECTED PRN Glucagon,Human Recombinant [GlucaGen] Med 10/22/20 19:31 Active 1 mg IM ASDIRECTED PRN Heparin Sodium/0.45% NaCl [Heparin 25,000 Units in 1/2 Med 10/22/20 18:45 Active NS 500 ML] 500 ml IV TITRATE Insulin Aspart [NovoLOG] Med 10/23/20 07:30 Active See Protocol SUBCUT TIDAC Morphine Med 10/22/20 19:41 Active 1 mg IVPUSH Q2H PRN Ondansetron [Zofran ODT] Med 10/22/20 19:21 Active 4 mg PO Q4H PRN Pantoprazole [ProTONIX IV] Med 10/22/20 22:30 Active 40 mg IV BEDTIME Sodium Chloride 0.9% [Normal Saline] 1,000 ml Med 10/22/20 20:15 Active IV CONTINUOUS Sodium Chloride 0.9% [Saline Flush] Med 10/22/20 14:04 Active 10 ml FLUSH ASDIRECTED PRN Sodium Chloride 0.9% [Saline Flush] Med 10/22/20 14:04 Active 2.5 ml FLUSH ASDIRECTED PRN amLODIPine Besylate Med 10/23/20 09:00 Unverified DOSE UNIT RTE FREQ atenoloL [Atenolol] Med 10/23/20 09:00 Unverified DOSE UNIT RTE FREQ Saline Lock Insert [OM.PC] Stat Oth 10/22/20 14:04 Ordered Resuscitation Status Routine Resus Stat 10/22/20 19:21 Ordered Medication Orders Acetaminophen (Tylenol Extra Strength) 500 mg PO Q6H PRN PRN Reason: Pain Albuterol/Ipratropium (Duoneb 3.0-0.5 Mg/3 Ml) 3 ml NEB Q4HRRT PRN PRN Reason: Shortness Of Breath/wheezing Dextrose/Water (Dextrose 50% In Water) 50 ml IV ASDIRECTED PRN PRN Reason: Hypoglycemia Glucagon (Glucagen) 1 mg IM ASDIRECTED PRN PRN Reason: Hypoglycemia Heparin Sodium/Sodium Chloride (Heparin 25,000 Units In 1/2 Ns 500 Ml) 500 mls @ 1.842 mls/hr IV TITRATE JOSTIN; Protocol Last Admin: 10/22/20 18:54 Dose: 18 units/kg/hr, 33.148 mls/hr Documented by: LUIS Cosigned by: PAVITHRA Sodium Chloride (Normal Saline) 1,000 mls @ 125 mls/hr IV CONTINUOUS JOSTIN Insulin Aspart (Novolog) 0 unit SUBCUT TIDAC JOSTIN; Protocol Morphine Sulfate (Morphine) 1 mg IVPUSH Q2H PRN PRN Reason: Pain (severe 7-10) Stop: 10/23/20 19:22 Ondansetron HCl (Zofran Odt) 4 mg PO Q4H PRN PRN Reason: nausea, able to take PO Pantoprazole Sodium (Protonix Iv) 40 mg IV BEDTIME JOSTIN Sodium Chloride (Saline Flush) 10 ml FLUSH ASDIRECTED PRN PRN Reason: Keep Vein Open Last Admin: 10/22/20 14:14 Dose: 10 ml Documented by: LUIS Sodium Chloride (Saline Flush) 2.5 ml FLUSH ASDIRECTED PRN PRN Reason: Keep Vein Open Last Admin: 10/22/20 14:14 Dose: 2.5 ml Documented by: LUIS Assessment/Plan Comment:: I performed a history and physical exam of the patient and discussed management with resident. I have reviewed the residents note and agree with documented findings and plan unless otherwise specified in my note.
[2020-10-22] MEDS ORDERED: Pantoprazole 40 MG Vial IV SCH (19:30)
[2020-10-22] MEDS ORDERED: Glucagon,Human Recombinant 1 MG Vial IM PRN (19:31)
[2020-10-22] MEDS ORDERED: 50% Dextrose in Water 50 ML Syringe IV PRN (19:31)
--- NOTE | 2020-10-22 21:41 | CR ---
INDICATION: Shoulder pain COMPARISON: 03/09/2020 TECHNIQUE: The right shoulder was examined using portable technique at 2058 hours with APinternal and external rotation and outlet views for a total of three views. FINDINGS: The osseous structures are in anatomic alignment without fracture or dislocation. There is anatomic alignment of the humeral head and glenoid. 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 There appears to be stable mild narrowing of the glenohumeral articulation from mild primary osteoarthritis. The visualized chest is clear. IMPRESSION: No sign of acute osseous injury. 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 Dictated by Fly James MD @ Oct 22 2020 9:37PM Signed by Dr. Fly James @ Oct 22 2020 9:40PM
[2020-10-22] MEDS: Pantoprazole 40 MG Vial IV SCH (23:14)
[2020-10-22] MEDS: Sodium Chloride 0.9% 1,000 ML IV SCH (23:21)
[2020-10-23] MEDS: Morphine 2 MG/ML SYRINGE IVPUSH PRN ×5 (01:04→15:45)
[2020-10-23] MEDS: Carboxymethylcellulose Sodium 0.5% Ophth Soln 0.4 ML UD Box of 30 EYEBOTH SCH ×3 (06:56→21:38)
[2020-10-23] MEDS: Sodium Chloride 0.9% 1,000 ML IV SCH ×2 (07:40→18:33)
[2020-10-23] MEDS: Insulin Aspart 100 Units/ML 3 ML Pen SUBCUT SCH ×3 (08:09→17:02)
[2020-10-23 09:14] LABS: BLOOD UREA NITROGEN,BUN 13 mg/dL (7.0-18.0); CARBON DIOXIDE,CO2 28.8 mmol/L (21.0-32.0); CHLORIDE,CL 101 mmol/L (98-107); GLUCOSE RANDOM 90 mg/dL (74-106); POTASSIUM,K 3.4 mmol/L (3.5-5.1); SODIUM,NA 140 mmol/L (136-148)
[2020-10-23] MEDS: amLODIPine 5 MG Tab PO SCH (10:32)
[2020-10-23] MEDS: Aspirin 81 MG Tab.EC PO SCH (10:33)
[2020-10-23] MEDS: Heparin Sodium/0.45% NaCl 500 ML IV SCH (12:35)
--- NOTE | 2020-10-23 13:17 | PCM.PN ---
<Willi Harmon - Last Filed: 10/23/20 13:17> - General Info Date of Service: 10/23/20 Subjective Update: Bedside: Endorses significant pain in his right shoulder/right arm. Does feel weak and tired but endorses an appetite. Patient denies any chest pains, shortness of breath - Review of Systems General: Reports: Weakness, Fatigue HEENT: Reports: No Symptoms Pulmonary: Reports: No Symptoms Cardiovascular: Reports: No Symptoms Gastrointestinal: Reports: No Symptoms Genitourinary: Reports: No Symptoms Musculoskeletal: Reports: Shoulder Pain, Arm Pain, Hand Pain, Back Pain Skin: Reports: Bruising Neurological: Reports: Weakness Psychiatric: Reports: No Symptoms - Patient Data Vitals - Most Recent: Last Vital Signs Temp 98.7 F 10/23/20 12:00 Pulse 80 10/23/20 12:00 Resp 18 10/23/20 12:00 BP 127/84 10/23/20 12:00 Pulse Ox 96 10/23/20 12:00 Weight - Most Recent: 92.079 kg I&O - Last 24 Hours: Intake & Output 10/22/20 10/23/20 10/23/20 22:59 06:59 14:59 Intake Total 739 Output Total 450 Balance 289 Lab Results Last 24 Hours: Laboratory Results - last 24 hr 10/22/20 10/22/20 10/22/20 Range/Units 14:16 14:16 14:16 WBC 6.76 (4.0-11.0) K/uL RBC 4.77 (4.50-5.90) M/uL Hgb 14.2 (13.0-17.0) g/dL Hct 41.8 (38.0-50.0) % MCV 87.6 (80.0-98.0) fL MCH 29.8 (27.0-32.0) pg MCHC 34.0 (31.0-37.0) g/dL RDW Std Deviation 42.6 (28.0-62.0) fl RDW Coeff of Alfonso 13 (11.0-15.0) % Plt Count 255 (150-400) K/uL MPV 10.00 (7.40-12.00) fL Neut % (Auto) 70.3 (48.0-80.0) % Lymph % (Auto) 15.1 L (16.0-40.0) % Dickson % (Auto) 10.7 (0.0-15.0) % Eos % (Auto) 3.3 (0.0-7.0) % Baso % (Auto) 0.6 (0.0-1.5) % Neut # (Auto) 4.8 (1.4-5.7) K/uL Lymph # (Auto) 1.0 (0.6-2.4) K/uL Dickson # (Auto) 0.7 (0.0-0.8) K/uL Eos # (Auto) 0.2 (0.0-0.7) K/uL Baso # (Auto) 0.0 (0.0-0.1) K/uL Nucleated RBC % 0.0 /100WBC Nucleated RBCs # 0 K/uL APTT (18.6-31.3) SEC Lactate 1.1 (0.20-2.00) mmol/L Sodium 140 (136-148) mmol/L Potassium 3.6 (3.5-5.1) mmol/L Chloride 98 (98-107) mmol/L Carbon Dioxide 30.7 (21.0-32.0) mmol/L BUN 25 H (7.0-18.0) mg/dL Creatinine 1.0 (0.8-1.3) mg/dL Est Cr Clr Drug Dosing 64.89 mL/min Estimated GFR (MDRD) > 60.0 ml/min Glucose 117 H (74-106) mg/dL POC Glucose (60-110) mg/dL Calcium 9.3 (8.5-10.1) mg/dL Phosphorus 3.6 (2.6-4.7) mg/dL Magnesium 2.1 (1.8-2.4) mg/dL Total Bilirubin 1.0 (0.2-1.0) mg/dL AST 33 (15-37) IU/L ALT 24 (14-63) IU/L Alkaline Phosphatase 90 (46-116) U/L Creatine Kinase 323 H (26-308) U/L Troponin I < 0.050 (0.000-0.056) ng/mL B-Natriuretic Peptide (<100) PG/ML Total Protein 7.2 (6.4-8.2) g/dL Albumin 2.9 L (3.4-5.0) g/dL Globulin 4.3 H (2.6-4.0) g/dL Albumin/Globulin Ratio 0.7 L (0.9-1.6) Urine Color Urine Appearance Urine pH (5.0-8.0) Ur Specific [place] (1.001-1.035) Urine Protein (NEGATIVE) mg/dL Urine Glucose (UA) (NEGATIVE) mg/dL Urine Ketones (NEGATIVE) mg/dL Urine Occult Blood (NEGATIVE) Urine Nitrite (NEGATIVE) Urine Bilirubin (NEGATIVE) Urine Urobilinogen (<2.0) EU/dL Ur Leukocyte Esterase (NEGATIVE) SARS-CoV-2 RNA (BILL) (NEGATIVE) 10/22/20 10/22/20 10/22/20 Range/Units 14:16 15:35 16:47 WBC (4.0-11.0) K/uL RBC (4.50-5.90) M/uL Hgb (13.0-17.0) g/dL Hct (38.0-50.0) % MCV (80.0-98.0) fL MCH (27.0-32.0) pg MCHC (31.0-37.0) g/dL RDW Std Deviation (28.0-62.0) fl RDW Coeff of Alfonso (11.0-15.0) % Plt Count (150-400) K/uL MPV (7.40-12.00) fL Neut % (Auto) (48.0-80.0) % Lymph % (Auto) (16.0-40.0) % Dickson % (Auto) (0.0-15.0) % Eos % (Auto) (0.0-7.0) % Baso % (Auto) (0.0-1.5) % Neut # (Auto) (1.4-5.7) K/uL Lymph # (Auto) (0.6-2.4) K/uL Dickson # (Auto) (0.0-0.8) K/uL Eos # (Auto) (0.0-0.7) K/uL Baso # (Auto) (0.0-0.1) K/uL Nucleated RBC % /100WBC Nucleated RBCs # K/uL APTT (18.6-31.3) SEC Lactate (0.20-2.00) mmol/L Sodium (136-148) mmol/L Potassium (3.5-5.1) mmol/L Chloride (98-107) mmol/L Carbon Dioxide (21.0-32.0) mmol/L BUN (7.0-18.0) mg/dL Creatinine (0.8-1.3) mg/dL Est Cr Clr Drug Dosing mL/min Estimated GFR (MDRD) ml/min Glucose (74-106) mg/dL POC Glucose (60-110) mg/dL Calcium (8.5-10.1) mg/dL Phosphorus (2.6-4.7) mg/dL Magnesium (1.8-2.4) mg/dL Total Bilirubin (0.2-1.0) mg/dL AST (15-37) IU/L ALT (14-63) IU/L Alkaline Phosphatase (46-116) U/L Creatine Kinase (26-308) U/L Troponin I (0.000-0.056) ng/mL B-Natriuretic Peptide 23 (<100) PG/ML Total Protein (6.4-8.2) g/dL Albumin (3.4-5.0) g/dL Globulin (2.6-4.0) g/dL Albumin/Globulin Ratio (0.9-1.6) Urine Color YELLOW Urine Appearance CLEAR Urine pH 6.0 (5.0-8.0) Ur Specific [place] 1.020 (1.001-1.035) Urine Protein NEGATIVE (NEGATIVE) mg/dL Urine Glucose (UA) NEGATIVE (NEGATIVE) mg/dL Urine Ketones TRACE H (NEGATIVE) mg/dL Urine Occult Blood NEGATIVE (NEGATIVE) Urine Nitrite NEGATIVE (NEGATIVE) Urine Bilirubin NEGATIVE (NEGATIVE) Urine Urobilinogen 1.0 (<2.0) EU/dL Ur Leukocyte Esterase NEGATIVE (NEGATIVE) SARS-CoV-2 RNA (BILL) NEGATIVE (NEGATIVE) 10/22/20 10/23/20 10/23/20 Range/Units 22:17 02:07 06:53 WBC (4.0-11.0) K/uL RBC (4.50-5.90) M/uL Hgb (13.0-17.0) g/dL Hct (38.0-50.0) % MCV (80.0-98.0) fL MCH (27.0-32.0) pg MCHC (31.0-37.0) g/dL RDW Std Deviation (28.0-62.0) fl RDW Coeff of Alfonso (11.0-15.0) % Plt Count (150-400) K/uL MPV (7.40-12.00) fL Neut % (Auto) (48.0-80.0) % Lymph % (Auto) (16.0-40.0) % Dickson % (Auto) (0.0-15.0) % Eos % (Auto) (0.0-7.0) % Baso % (Auto) (0.0-1.5) % Neut # (Auto) (1.4-5.7) K/uL Lymph # (Auto) (0.6-2.4) K/uL Dickson # (Auto) (0.0-0.8) K/uL Eos # (Auto) (0.0-0.7) K/uL Baso # (Auto) (0.0-0.1) K/uL Nucleated RBC % /100WBC Nucleated RBCs # K/uL APTT 69.2 H 67.3 H (18.6-31.3) SEC Lactate (0.20-2.00) mmol/L Sodium (136-148) mmol/L Potassium (3.5-5.1) mmol/L Chloride (98-107) mmol/L Carbon Dioxide (21.0-32.0) mmol/L BUN (7.0-18.0) mg/dL Creatinine (0.8-1.3) mg/dL Est Cr Clr Drug Dosing mL/min Estimated GFR (MDRD) ml/min Glucose (74-106) mg/dL POC Glucose 93 (60-110) mg/dL Calcium (8.5-10.1) mg/dL Phosphorus (2.6-4.7) mg/dL Magnesium (1.8-2.4) mg/dL Total Bilirubin (0.2-1.0) mg/dL AST (15-37) IU/L ALT (14-63) IU/L Alkaline Phosphatase (46-116) U/L Creatine Kinase (26-308) U/L Troponin I (0.000-0.056) ng/mL B-Natriuretic Peptide (<100) PG/ML Total Protein (6.4-8.2) g/dL Albumin (3.4-5.0) g/dL Globulin (2.6-4.0) g/dL Albumin/Globulin Ratio (0.9-1.6) Urine Color Urine Appearance Urine pH (5.0-8.0) Ur Specific [place] (1.001-1.035) Urine Protein (NEGATIVE) mg/dL Urine Glucose (UA) (NEGATIVE) mg/dL Urine Ketones (NEGATIVE) mg/dL Urine Occult Blood (NEGATIVE) Urine Nitrite (NEGATIVE) Urine Bilirubin (NEGATIVE) Urine Urobilinogen (<2.0) EU/dL Ur Leukocyte Esterase (NEGATIVE) SARS-CoV-2 RNA (BILL) (NEGATIVE) 10/23/20 10/23/20 10/23/20 Range/Units 08:36 08:36 08:36 WBC 4.86 (4.0-11.0) K/uL RBC 4.48 L (4.50-5.90) M/uL Hgb 13.1 (13.0-17.0) g/dL Hct 39.0 (38.0-50.0) % MCV 87.1 (80.0-98.0) fL MCH 29.2 (27.0-32.0) pg MCHC 33.6 (31.0-37.0) g/dL RDW Std Deviation 42.2 (28.0-62.0) fl RDW Coeff of Alfonso 13 (11.0-15.0) % Plt Count 232 (150-400) K/uL MPV 9.80 (7.40-12.00) fL Neut % (Auto) 64.2 (48.0-80.0) % Lymph % (Auto) 22.4 (16.0-40.0) % Dickson % (Auto) 9.5 (0.0-15.0) % Eos % (Auto) 3.3 (0.0-7.0) % Baso % (Auto) 0.6 (0.0-1.5) % Neut # (Auto) 3.1 (1.4-5.7) K/uL Lymph # (Auto) 1.1 (0.6-2.4) K/uL Dickson # (Auto) 0.5 (0.0-0.8) K/uL Eos # (Auto) 0.2 (0.0-0.7) K/uL Baso # (Auto) 0.0 (0.0-0.1) K/uL Nucleated RBC % 0.0 /100WBC Nucleated RBCs # 0 K/uL APTT 80.8 H (18.6-31.3) SEC Lactate (0.20-2.00) mmol/L Sodium 140 (136-148) mmol/L Potassium 3.4 L (3.5-5.1) mmol/L Chloride 101 (98-107) mmol/L Carbon Dioxide 28.8 (21.0-32.0) mmol/L BUN 13 (7.0-18.0) mg/dL Creatinine 0.8 (0.8-1.3) mg/dL Est Cr Clr Drug Dosing 81.11 mL/min Estimated GFR (MDRD) > 60.0 ml/min Glucose 90 (74-106) mg/dL POC Glucose (60-110) mg/dL Calcium 8.2 L (8.5-10.1) mg/dL Phosphorus (2.6-4.7) mg/dL Magnesium (1.8-2.4) mg/dL Total Bilirubin 0.8 (0.2-1.0) mg/dL AST 28 (15-37) IU/L ALT 20 (14-63) IU/L Alkaline Phosphatase 83 (46-116) U/L Creatine Kinase 199 (26-308) U/L Troponin I (0.000-0.056) ng/mL B-Natriuretic Peptide (<100) PG/ML Total Protein 6.4 (6.4-8.2) g/dL Albumin 2.6 L (3.4-5.0) g/dL Globulin 3.8 (2.6-4.0) g/dL Albumin/Globulin Ratio 0.7 L (0.9-1.6) Urine Color Urine Appearance Urine pH (5.0-8.0) Ur Specific [place] (1.001-1.035) Urine Protein (NEGATIVE) mg/dL Urine Glucose (UA) (NEGATIVE) mg/dL Urine Ketones (NEGATIVE) mg/dL Urine Occult Blood (NEGATIVE) Urine Nitrite (NEGATIVE) Urine Bilirubin (NEGATIVE) Urine Urobilinogen (<2.0) EU/dL Ur Leukocyte Esterase (NEGATIVE) SARS-CoV-2 RNA (BILL) (NEGATIVE) 10/23/20 Range/Units 12:32 WBC (4.0-11.0) K/uL RBC (4.50-5.90) M/uL Hgb (13.0-17.0) g/dL Hct (38.0-50.0) % MCV (80.0-98.0) fL MCH (27.0-32.0) pg MCHC (31.0-37.0) g/dL RDW Std Deviation (28.0-62.0) fl RDW Coeff of Alfonso (11.0-15.0) % Plt Count (150-400) K/uL MPV (7.40-12.00) fL Neut % (Auto) (48.0-80.0) % Lymph % (Auto) (16.0-40.0) % Dickson % (Auto) (0.0-15.0) % Eos % (Auto) (0.0-7.0) % Baso % (Auto) (0.0-1.5) % Neut # (Auto) (1.4-5.7) K/uL Lymph # (Auto) (0.6-2.4) K/uL Dickson # (Auto) (0.0-0.8) K/uL Eos # (Auto) (0.0-0.7) K/uL Baso # (Auto) (0.0-0.1) K/uL Nucleated RBC % /100WBC Nucleated RBCs # K/uL APTT (18.6-31.3) SEC Lactate (0.20-2.00) mmol/L Sodium (136-148) mmol/L Potassium (3.5-5.1) mmol/L Chloride (98-107) mmol/L Carbon Dioxide (21.0-32.0) mmol/L BUN (7.0-18.0) mg/dL Creatinine (0.8-1.3) mg/dL Est Cr Clr Drug Dosing mL/min Estimated GFR (MDRD) ml/min Glucose (74-106) mg/dL POC Glucose 150 H (60-110) mg/dL Calcium (8.5-10.1) mg/dL Phosphorus (2.6-4.7) mg/dL Magnesium (1.8-2.4) mg/dL Total Bilirubin (0.2-1.0) mg/dL AST (15-37) IU/L ALT (14-63) IU/L Alkaline Phosphatase (46-116) U/L Creatine Kinase (26-308) U/L Troponin I (0.000-0.056) ng/mL B-Natriuretic Peptide (<100) PG/ML Total Protein (6.4-8.2) g/dL Albumin (3.4-5.0) g/dL Globulin (2.6-4.0) g/dL Albumin/Globulin Ratio (0.9-1.6) Urine Color Urine Appearance Urine pH (5.0-8.0) Ur Specific [place] (1.001-1.035) Urine Protein (NEGATIVE) mg/dL Urine Glucose (UA) (NEGATIVE) mg/dL Urine Ketones (NEGATIVE) mg/dL Urine Occult Blood (NEGATIVE) Urine Nitrite (NEGATIVE) Urine Bilirubin (NEGATIVE) Urine Urobilinogen (<2.0) EU/dL Ur Leukocyte Esterase (NEGATIVE) SARS-CoV-2 RNA (BILL) (NEGATIVE) Med Orders - Current: Current Medications Acetaminophen (Tylenol Extra Strength) 500 mg PO Q6H PRN PRN Reason: Pain Albuterol/Ipratropium (Duoneb 3.0-0.5 Mg/3 Ml) 3 ml NEB Q4HRRT PRN PRN Reason: Shortness Of Breath/wheezing Amlodipine Besylate (Norvasc) 10 mg PO DAILY [facility] Last Admin: 10/23/20 10:32 Dose: 10 mg Documented by: Artificial Tears (Refresh Plus 0.5%) 1 each EYEBOTH BID [facility] Last Admin: 10/23/20 10:20 Dose: 1 each Documented by: Aspirin (Halfprin) 81 mg PO DAILY [facility] Last Admin: 10/23/20 10:33 Dose: 81 mg Documented by: Atenolol (Tenormin) 100 mg PO BEDTIME [facility] Dextrose/Water (Dextrose 50% In Water) 50 ml IV ASDIRECTED PRN PRN Reason: Hypoglycemia Glucagon (Glucagen) 1 mg IM ASDIRECTED PRN PRN Reason: Hypoglycemia Heparin Sodium/Sodium Chloride (Heparin 25,000 Units In / Ns 500 Ml) 500 mls @ 1.842 mls/hr IV TITRATE JOSTIN; Protocol Last Admin: 10/23/20 12:35 Dose: 16 units/kg/hr, 29.465 mls/hr Documented by: Sodium Chloride (Normal Saline) 1,000 mls @ 125 mls/hr IV CONTINUOUS JOSTIN Last Admin: 10/23/20 07:40 Dose: 125 mls/hr Documented by: Insulin Aspart (Novolog) 0 unit SUBCUT TIDAC JOSTIN; Protocol Last Admin: 10/23/20 08:09 Dose: Not Given Documented by: Morphine Sulfate (Morphine) 1 mg IVPUSH Q2H PRN PRN Reason: Pain (severe 7-10) Stop: 10/23/20 19:22 Last Admin: 10/23/20 12:39 Dose: 1 mg Documented by: Ondansetron HCl (Zofran Odt) 4 mg PO Q4H PRN PRN Reason: nausea, able to take PO Pantoprazole Sodium (Protonix Iv) 40 mg IV BEDTIME [facility] Last Admin: 10/22/20 23:14 Dose: 40 mg Documented by: Sodium Chloride (Saline Flush) 10 ml FLUSH ASDIRECTED PRN PRN Reason: Keep Vein Open Last Admin: 10/22/20 14:14 Dose: 10 ml Documented by: Sodium Chloride (Saline Flush) 2.5 ml FLUSH ASDIRECTED PRN PRN Reason: Keep Vein Open Last Admin: 10/22/20 14:14 Dose: 2.5 ml Documented by: Discontinued Medications Heparin Sodium (Porcine) (Heparin Sodium) 5,000 units IVPUSH .BOLUS ONE; Protocol Stop: 10/22/20 18:33 Last Admin: 10/22/20 18:52 Dose: 5,000 units Documented by: Sodium Chloride (Normal Saline) 1,000 mls @ 999 mls/hr IV .Bolus ONE Stop: 10/22/20 15:04 Last Admin: 10/22/20 14:14 Dose: 999 mls/hr Documented by: Ibuprofen (Motrin) 400 mg PO Q6H PRN PRN Reason: Pain (mild 1-3) Iopamidol (Isovue Multipack-370 (76%)) 100 ml IVPUSH ONETIME STA Stop: 10/22/20 19:16 Last Admin: 10/22/20 19:16 Dose: 100 ml Documented by: Morphine Sulfate (Morphine) 4 mg IVPUSH ONETIME ONE Stop: 10/22/20 14:05 Last Admin: 10/22/20 14:13 Dose: 4 mg Documented by: Morphine Sulfate (Morphine) 4 mg IVPUSH ONETIME ONE Stop: 10/22/20 17:46 Last Admin: 10/22/20 17:50 Dose: 4 mg Documented by: Morphine Sulfate (Morphine) 1 mg IVPUSH Q2H PRN PRN Reason: Pain (severe 7-10) Stop: 10/23/20 19:22 Pantoprazole Sodium (Protonix Iv) 40 mg IV Q24H [facility] Last Admin: 10/22/20 23:20 Dose: Not Given Documented by: - Exam Quality Assessment: Supplemental Oxygen General: Alert, Oriented HEENT: EOMI, Mucous Membr. Moist/[place] Neck: Supple Lungs: Clear to Auscultation, Normal Respiratory Effort Cardiovascular: Regular Rate, Regular Rhythm GI/Abdominal Exam: Soft, Non-Tender Extremities: Other (right arm/wrist: swelling improved but significant weakness. pain w. active/passive ROM of shoulder/arm/hand ) Skin: Warm, Other (multiple brusises noted ) Psy/Mental Status: Alert, Normal Affect, Normal Mood Sepsis Event Note - Evaluation Sepsis Screening Result: No Definite Risk - Focused Exam Vital Signs: Vital Signs Temp Pulse Resp BP BP Pulse Ox 10/23/20 12:00 98.7 F 80 18 127/84 96 10/23/20 10:32 140/64 10/23/20 08:00 97.5 F 68 16 140/64 97 10/23/20 04:08 97.6 F 74 17 137/75 96 - Problem List & Annotations (1) Hypoxia SNOMED Code(s): 822461380 Code(s): R09.02 - HYPOXEMIA Status: Acute Current Visit: Yes (2) Pulmonary embolism SNOMED Code(s): 03333662 Code(s): I26.99 - OTHER PULMONARY EMBOLISM WITHOUT ACUTE COR PULMONALE Status: Acute Current Visit: Yes - Problem List Review Problem List Initiated/Reviewed/Updated: Yes - My Orders Last 24 Hours: My Active Orders 10/22/20 19:21 Blood Glucose Check, Bedside [RC] TIDMEALS Oxygen Therapy [RC] PRN Up With Assistance [RC] ASDIRECTED VTE/DVT Education [RC] PER UNIT ROUTINE Vital Signs [RC] Q4H Albuterol/Ipratropium [DuoNeb 3.0-0.5 MG/3 ML] 3 ml NEB Q4HRRT PRN Ondansetron [Zofran ODT] 4 mg PO Q4H PRN Resuscitation Status Routine 10/22/20 19:22 RT Aerosol Therapy [RC] ASDIRECTED 10/22/20 19:31 Dextrose 50% in Water 50 ml IV ASDIRECTED PRN Glucagon,Human Recombinant [GlucaGen] 1 mg IM ASDIRECTED PRN 10/22/20 19:32 Acetaminophen [Tylenol Extra Strength] 500 mg PO Q6H PRN 10/22/20 19:41 Consult to Physical Therapy [PT Evaluation and Treatment] [CONS] Routine Morphine 1 mg IVPUSH Q2H PRN 10/22/20 20:15 Sodium Chloride 0.9% [Normal Saline] 1,000 ml IV CONTINUOUS 10/22/20 22:30 Pantoprazole [ProTONIX IV] 40 mg IV BEDTIME 10/23/20 07:30 Insulin Aspart [NovoLOG] See Protocol SUBCUT TIDAC 10/23/20 09:00 Aspirin [Halfprin] 81 mg PO DAILY amLODIPine [Norvasc] 10 mg PO DAILY 10/23/20 11:34 Ang Upper Extremity Lt [CT] Urgent Ang Upper Extremity Rt [CT] Urgent 10/23/20 21:00 atenoloL [Tenormin] 100 mg PO BEDTIME 10/24/20 05:11 CBC WITH AUTO DIFF [HEME] AM COMPREHENSIVE METABOLIC PN,CMP [CHEM] AM 10/25/20 05:11 CBC WITH AUTO DIFF [HEME] AM COMPREHENSIVE METABOLIC PN,CMP [CHEM] AM - Plan Plan:: Assessment: 1. Acute hypoxic respiratory failure secondary to pulmonary emboli (right upper/lower lobe) 2. Status post right shoulder/rotator cuff surgery POD#9 3. Generalized weakness 4. Elevated CPK 4. Past medical history: Type 2 diabetes, hypertension, hyperlipidemia, coronary artery disease status post stent, depression/anxiety. Plan: 1. Acute hypoxic respiratory failure secondary to pulmonary emboli: Heparin drip : continue. patient can stay with friend in [place] post-op; but still may consider DOAC in light of his precarious state/ living situation HAS-BLED: 3; however may require this secondary to PE post-op Concerns regarding clot-burden post-op/upper extremity since l.e us negative ; CTA of b/l upper extremity ordered: will aid in terminal computer operator need for anti- coagulation decision 2. Elevated CPK: improving most likely from prolonged immobilization; continue fluids NS and avoid nephrotoxins Generalized muscle tenderness On telemetry 3. Generalized weakness: POD#9 ; continue PT/OT; will require [facility] from [facility] regarding post-op protocol; can restart shoulder sling as instructed ; continue PT to avoid adhesive capsulitis 4. DM: SSI+TID accu-checks 5. HTN: restart amlodipine/atenolol; hold HCTZ/lisinopril once hydration status is improved; including creatinine 6. HLD: hold statin in light of significant CPK increase and myalgia; restart once appropriate 7. CAD s/p PCI: continue ASA; continue telemetry 8. Depression/anxiety: continue SSRI UA negative COVID negative LAD PCI FALGUNI 11/05/2018 ECHO 2019: preserved LVEF, mild MR , Mild TR , trace TR <Diya Zazueta - Last Filed: 10/24/20 14:37> - Patient Data Vitals - Most Recent: Last Vital Signs Temp 37.1 C 10/24/20 13:18 Pulse 71 10/24/20 13:18 Resp 16 10/24/20 13:18 BP 138/66 10/24/20 13:18 Pulse Ox 96 10/24/20 13:18 I&O - Last 24 Hours: Intake & Output 10/23/20 10/24/20 10/24/20 22:59 06:59 14:59 Intake Total 460 3379 Output Total 1100 1400 Balance -640 1979 Lab Results Last 24 Hours: Laboratory Results - last 24 hr 10/23/20 10/23/20 10/23/20 Range/Units 14:14 16:59 20:21 WBC (4.0-11.0) K/uL RBC (4.50-5.90) M/uL Hgb (13.0-17.0) g/dL Hct (38.0-50.0) % MCV (80.0-98.0) fL MCH (27.0-32.0) pg MCHC (31.0-37.0) g/dL RDW Std Deviation (28.0-62.0) fl RDW Coeff of Alfonso (11.0-15.0) % Plt Count (150-400) K/uL MPV (7.40-12.00) fL Neut % (Auto) (48.0-80.0) % Lymph % (Auto) (16.0-40.0) % Dickson % (Auto) (0.0-15.0) % Eos % (Auto) (0.0-7.0) % Baso % (Auto) (0.0-1.5) % Neut # (Auto) (1.4-5.7) K/uL Lymph # (Auto) (0.6-2.4) K/uL Dickson # (Auto) (0.0-0.8) K/uL Eos # (Auto) (0.0-0.7) K/uL Baso # (Auto) (0.0-0.1) K/uL Nucleated RBC % /100WBC Nucleated RBCs # K/uL APTT 56.4 H 58.3 H (18.6-31.3) SEC Sodium (136-148) mmol/L Potassium (3.5-5.1) mmol/L Chloride (98-107) mmol/L Carbon Dioxide (21.0-32.0) mmol/L BUN (7.0-18.0) mg/dL Creatinine (0.8-1.3) mg/dL Est Cr Clr Drug Dosing mL/min Estimated GFR (MDRD) ml/min Glucose (74-106) mg/dL POC Glucose 99 (60-110) mg/dL Calcium (8.5-10.1) mg/dL Total Bilirubin (0.2-1.0) mg/dL AST (15-37) IU/L ALT (14-63) IU/L Alkaline Phosphatase (46-116) U/L Total Protein (6.4-8.2) g/dL Albumin (3.4-5.0) g/dL Globulin (2.6-4.0) g/dL Albumin/Globulin Ratio (0.9-1.6) 10/24/20 10/24/20 10/24/20 Range/Units 06:10 06:10 06:10 WBC 4.84 (4.0-11.0) K/uL RBC 4.75 (4.50-5.90) M/uL Hgb 13.8 (13.0-17.0) g/dL Hct 41.2 (38.0-50.0) % MCV 86.7 (80.0-98.0) fL MCH 29.1 (27.0-32.0) pg MCHC 33.5 (31.0-37.0) g/dL RDW Std Deviation 41.7 (28.0-62.0) fl RDW Coeff of Alfonso 13 (11.0-15.0) % Plt Count 259 (150-400) K/uL MPV 9.90 (7.40-12.00) fL Neut % (Auto) 62.9 (48.0-80.0) % Lymph % (Auto) 22.9 (16.0-40.0) % Dickson % (Auto) 9.9 (0.0-15.0) % Eos % (Auto) 3.7 (0.0-7.0) % Baso % (Auto) 0.6 (0.0-1.5) % Neut # (Auto) 3.0 (1.4-5.7) K/uL Lymph # (Auto) 1.1 (0.6-2.4) K/uL Dickson # (Auto) 0.5 (0.0-0.8) K/uL Eos # (Auto) 0.2 (0.0-0.7) K/uL Baso # (Auto) 0.0 (0.0-0.1) K/uL Nucleated RBC % 0.0 /100WBC Nucleated RBCs # 0 K/uL APTT 74.4 H (18.6-31.3) SEC Sodium 141 (136-148) mmol/L Potassium 3.4 L (3.5-5.1) mmol/L Chloride 104 (98-107) mmol/L Carbon Dioxide 27.7 (21.0-32.0) mmol/L BUN 9 (7.0-18.0) mg/dL Creatinine 0.8 (0.8-1.3) mg/dL Est Cr Clr Drug Dosing 81.11 mL/min Estimated GFR (MDRD) > 60.0 ml/min Glucose 102 (74-106) mg/dL POC Glucose (60-110) mg/dL Calcium 8.4 L (8.5-10.1) mg/dL Total Bilirubin 0.9 (0.2-1.0) mg/dL AST 25 (15-37) IU/L ALT 20 (14-63) IU/L Alkaline Phosphatase 86 (46-116) U/L Total Protein 6.7 (6.4-8.2) g/dL Albumin 2.7 L (3.4-5.0) g/dL Globulin 4.0 (2.6-4.0) g/dL Albumin/Globulin Ratio 0.7 L (0.9-1.6) 10/24/20 10/24/20 10/24/20 Range/Units 07:11 13:09 13:25 WBC (4.0-11.0) K/uL RBC (4.50-5.90) M/uL Hgb (13.0-17.0) g/dL Hct (38.0-50.0) % MCV (80.0-98.0) fL MCH (27.0-32.0) pg MCHC (31.0-37.0) g/dL RDW Std Deviation (28.0-62.0) fl RDW Coeff of Alfonso (11.0-15.0) % Plt Count (150-400) K/uL MPV (7.40-12.00) fL Neut % (Auto) (48.0-80.0) % Lymph % (Auto) (16.0-40.0) % Dickson % (Auto) (0.0-15.0) % Eos % (Auto) (0.0-7.0) % Baso % (Auto) (0.0-1.5) % Neut # (Auto) (1.4-5.7) K/uL Lymph # (Auto) (0.6-2.4) K/uL Dickson # (Auto) (0.0-0.8) K/uL Eos # (Auto) (0.0-0.7) K/uL Baso # (Auto) (0.0-0.1) K/uL Nucleated RBC % /100WBC Nucleated RBCs # K/uL APTT 95.2 H (18.6-31.3) SEC Sodium (136-148) mmol/L Potassium (3.5-5.1) mmol/L Chloride (98-107) mmol/L Carbon Dioxide (21.0-32.0) mmol/L BUN (7.0-18.0) mg/dL Creatinine (0.8-1.3) mg/dL Est Cr Clr Drug Dosing mL/min Estimated GFR (MDRD) ml/min Glucose (74-106) mg/dL POC Glucose 95 181 H (60-110) mg/dL Calcium (8.5-10.1) mg/dL Total Bilirubin (0.2-1.0) mg/dL AST (15-37) IU/L ALT (14-63) IU/L Alkaline Phosphatase (46-116) U/L Total Protein (6.4-8.2) g/dL Albumin (3.4-5.0) g/dL Globulin (2.6-4.0) g/dL Albumin/Globulin Ratio (0.9-1.6) Med Orders - Current: Current Medications Acetaminophen (Tylenol Extra Strength) 500 mg PO Q6H PRN PRN Reason: Pain Last Admin: 10/24/20 13:11 Dose: 500 mg Documented by: Albuterol/Ipratropium (Duoneb 3.0-0.5 Mg/3 Ml) 3 ml NEB Q4HRRT PRN PRN Reason: Shortness Of Breath/wheezing Amlodipine Besylate (Norvasc) 10 mg PO DAILY [facility] Last Admin: 10/24/20 09:56 Dose: 10 mg Documented by: Apixaban (Eliquis) 10 mg PO BID [facility] Last Admin: 10/24/20 09:55 Dose: 10 mg Documented by: Artificial Tears (Refresh Plus 0.5%) 1 each EYEBOTH BID [facility] Last Admin: 10/24/20 09:55 Dose: 1 each Documented by: Aspirin (Halfprin) 81 mg PO DAILY [facility] Last Admin: 10/24/20 09:56 Dose: 81 mg Documented by: Atenolol (Tenormin) 100 mg PO BEDTIME [facility] Last Admin: 10/23/20 21:36 Dose: 100 mg Documented by: Atorvastatin Calcium (Lipitor) 80 mg PO BEDTIME [facility] Last Admin: 10/23/20 21:35 Dose: 80 mg Documented by: Ciprofloxacin (Ciloxan 0.3% Ophth Soln) 1 ml EYEBOTH Q4HR [facility] Last Admin: 10/24/20 13:10 Dose: 1 drop Documented by: Dextrose/Water (Dextrose 50% In Water) 50 ml IV ASDIRECTED PRN PRN Reason: Hypoglycemia Glucagon (Glucagen) 1 mg IM ASDIRECTED PRN PRN Reason: Hypoglycemia Heparin Sodium/Sodium Chloride (Heparin 25,000 Units In 1/2 Ns 500 Ml) 500 mls @ 1.842 mls/hr IV TITRATE [facility]; Protocol Last Titration: 10/24/20 07:22 Dose: 14 units/kg/hr, 25.782 mls/hr Documented by: Sodium Chloride (Normal Saline) 1,000 mls @ 125 mls/hr IV CONTINUOUS JOSTIN Last Admin: 10/24/20 06:03 Dose: 125 mls/hr Documented by: Insulin Aspart (Novolog) 0 unit SUBCUT TIDAC [facility]; Protocol Last Admin: 10/24/20 13:10 Dose: Not Given Documented by: Melatonin (Melatonin) 3 mg PO BEDTIME PRN PRN Reason: Insomnia Ondansetron HCl (Zofran Odt) 4 mg PO Q4H PRN PRN Reason: nausea, able to take PO Pantoprazole Sodium (Protonix Iv) 40 mg IV BEDTIME [facility] Last Admin: 10/23/20 21:30 Dose: 40 mg Documented by: Budesonide/Formoterol 160-4.5 Mcg/Puff 6 Gm Inhaler 2 each INH BEDTIME [facility] Last Admin: 10/23/20 21:39 Dose: Not Given Documented by: Venlafaxine 25 Mg 25 each PO BID [facility] Last Admin: 10/24/20 10:29 Dose: Not Given Documented by: Sodium Chloride (Saline Flush) 10 ml FLUSH ASDIRECTED PRN PRN Reason: Keep Vein Open Last Admin: 10/22/20 14:14 Dose: 10 ml Documented by: Sodium Chloride (Saline Flush) 2.5 ml FLUSH ASDIRECTED PRN PRN Reason: Keep Vein Open Last Admin: 10/22/20 14:14 Dose: 2.5 ml Documented by: Tamsul[facility] ([facility] Admin: 10/23/20 17:01 Dose: 0.4 mg Documented by: Discontinued Medications Heparin Sodium (Porcine) (Heparin Sodium) 5,000 units IVPUSH .BOLUS ONE; Protocol Stop: 10/22/20 18:33 Last Admin: 10/22/20 18:52 Dose: 5,000 units Documented by: Sodium Chloride (Normal Saline) 1,000 mls @ 999 mls/hr IV .Bolus ONE Stop: 10/22/20 15:04 Last Admin: 10/22/20 14:14 Dose: 999 mls/hr Documented by: Ibuprofen (Motrin) 400 mg PO Q6H PRN PRN Reason: Pain (mild 1-3) Iopamidol (Isovue Multipack-370 (76%)) 100 ml IVPUSH ONETIME STA Stop: 10/22/20 19:16 Last Admin: 10/22/20 19:16 Dose: 100 ml Documented by: Iopamidol (Isovue Multipack-370 (76%)) 100 ml IVPUSH ONETIME ONE Stop: 10/23/20 15:36 Last Admin: 10/23/20 15:36 Dose: 100 ml Documented by: Morphine Sulfate (Morphine) 4 mg IVPUSH ONETIME ONE Stop: 10/22/20 14:05 Last Admin: 10/22/20 14:13 Dose: 4 mg Documented by: Morphine Sulfate (Morphine) 4 mg IVPUSH ONETIME ONE Stop: 10/22/20 17:46 Last Admin: 10/22/20 17:50 Dose: 4 mg Documented by: Morphine Sulfate (Morphine) 1 mg IVPUSH Q2H PRN PRN Reason: Pain (severe 7-10) Stop: 10/23/20 19:22 Morphine Sulfate (Morphine) 1 mg IVPUSH Q2H PRN PRN Reason: Pain (severe 7-10) Stop: 10/23/20 19:22 Last Admin: 10/23/20 15:45 Dose: 1 mg Documented by: Pantoprazole Sodium (Protonix Iv) 40 mg IV Q24H [facility] Last Admin: 10/22/20 23:20 Dose: Not Given Documented by: Potassium Chloride (Klor-Con M20) 40 meq PO ONETIME ONE Stop: 10/24/20 07:50 Last Admin: 10/24/20 09:58 Dose: 40 meq Documented by: Sepsis Event Note - Focused Exam Vital Signs: Vital Signs Temp Pulse Resp BP BP Pulse Ox 10/24/20 13:18 37.1 C 71 16 138/66 96 10/24/20 09:56 137/73 10/24/20 09:49 36.6 C 61 16 137/73 97 10/24/20 04:00 36.7 C 60 18 132/60 95 - My Orders Last 24 Hours: My Active Orders 10/25/20 05:00 PTT,PARTIAL THROMBOPLSTIN TIME [COAG] Timed - Plan Plan:: I have seen and evaluated the patient and agree with the residents note unless specified in my note
[2020-10-23] MEDS ORDERED: Iopamidol 755 MG/ML 500 ML Multipack Bottle IVPUSH ONE (15:35)
--- NOTE | 2020-10-23 15:36 | CT ---
CLINICAL INFORMATION: 74-year-old with history of pulmonary embolism and worsening right upper extremity pain. TECHNIQUE: CT angiography of the right upper extremity was performed with intravenous contrast. No enteric contrast was administered and therefore the study has decreased sensitivity for detection of bowel pathology. 3D and/or MIP angiographic reconstructions were performed on a separate independent workstation with concurrent supervision of the image post processing in order to further delineate the angiographic anatomy for accurate interpretation. Contrast: 100 mL of Isovue 370 intravenous contrast was injected uneventfully prior to image acquisition. Radiation Dose Estimate (Total Exam DLP): 1512.5 mGy-cm. COMPARISON: CT angiogram of the chest 10/22/2020 FINDINGS: CT Angiography Findings: RIGHT upper extremity: Innominate artery: Patent. Subclavian artery: Patent. Axillary artery: Patent. Brachial artery: Patent. Radial artery: Patent. Ulnar artery: Patent. Visceral Findings: Dependent atelectatic changes in the visualized right hemithorax. Nonocclusive right upper lower lobe pulmonary emboli are again identified, better characterized on prior CT angiogram of the chest. Liver, adrenal glands, and right kidney are grossly unremarkable. Visualized bowel loops normal in caliber without evidence for obstruction. No intra-abdominal free air or focal fluid collection. IMPRESSION: 1. Right upper extremity arterial system is widely patent without evidence for hemodynamically significant stenoses or occlusions. 2. Subsegmental pulmonary emboli of in the visualized right upper and lower lobe branches, better seen on prior CT of 10/22/2020. Please note that all CT scans at this facility use dose modulation, iterative reconstruction, and/or weight-based dosing when appropriate to reduce radiation dose to as low as reasonably achievable. Dictated by Jimmy Lemus MD @ Oct 23 2020 3:27PM Signed by Dr. Jimmy Lemus @ Oct 23 2020 3:33PM
[2020-10-23] MEDS: Tamsulosin 0.4 MG Cap.ER PO SCH (17:01)
--- NOTE | 2020-10-23 17:11 | US ---
INDICATION: History PE, recent surgery TECHNIQUE: Ultrasound venous duplex upper left extremity. Compression venous exam was performed using maddox scale, color Doppler, and spectral Doppler imaging. COMPARISON: None Findings: The left internal jugular, subclavian, and axillary veins are patent with normal waveforms. The brachial, basilic, and cephalic veins are fully compressible. No soft tissue abnormalities seen. IMPRESSION: Normal ultrasound of the left upper extremity veins. Dictated by Tucker Rodriguez MD @ Oct 23 2020 5:11PM Signed by Dr. Tucker Rodriguez @ Oct 23 2020 5:11PM
[2020-10-23] MEDS: Pantoprazole 40 MG Vial IV SCH (21:30)
[2020-10-23] MEDS: atorvaSTATin 40 MG Tab PO SCH (21:35)
[2020-10-23] MEDS: Atenolol 50 MG Tab PO SCH (21:36)
[2020-10-23] MEDS: Acetaminophen 500 MG Tab PO PRN (21:37)
[2020-10-23] MEDS: Budesonide/Formoterol 160-4.5 MCG/Puff 6 GM Inhaler INH SCH (21:39)
[2020-10-23] MEDS: VENLAFAXINE 25 MG PO SCH (21:39)
[2020-10-24] MEDS: Acetaminophen 500 MG Tab PO PRN ×2 (06:02→13:11)
[2020-10-24] MEDS: Sodium Chloride 0.9% 1,000 ML IV SCH ×2 (06:03→16:48)
[2020-10-24] MEDS: Heparin Sodium/0.45% NaCl 500 ML IV SCH (06:19)
[2020-10-24 06:58] LABS: BLOOD UREA NITROGEN,BUN 9 mg/dL (7.0-18.0); CARBON DIOXIDE,CO2 27.7 mmol/L (21.0-32.0); CHLORIDE,CL 104 mmol/L (98-107); GLUCOSE RANDOM 102 mg/dL (74-106); POTASSIUM,K 3.4 mmol/L (3.5-5.1); SODIUM,NA 141 mmol/L (136-148)
[2020-10-24] MEDS: Insulin Aspart 100 Units/ML 3 ML Pen SUBCUT SCH ×3 (07:25→16:57)
[2020-10-24] MEDS ORDERED: Potassium Chloride 20 MEQ Tab.ER PO ONE (07:49)
[2020-10-24] MEDS: Carboxymethylcellulose Sodium 0.5% Ophth Soln 0.4 ML UD Box of 30 EYEBOTH SCH ×3 (09:55→21:30)
[2020-10-24] MEDS: Apixaban 5 MG Tab PO SCH ×2 (09:55→20:28)
[2020-10-24] MEDS: amLODIPine 5 MG Tab PO SCH (09:56)
[2020-10-24] MEDS: Aspirin 81 MG Tab.EC PO SCH (09:56)
[2020-10-24] MEDS: VENLAFAXINE 25 MG PO SCH ×2 (10:29→21:08)
--- NOTE | 2020-10-24 11:48 | PCM.PN ---
<Willi Harmon - Last Filed: 10/24/20 13:11> - General Info Date of Service: 10/24/20 Subjective Update: Bedside: feeling better but still c.o weakness and b.l leg pain. Denies any CP,SOB. Also c.o left eye discharge - Review of Systems General: Reports: Weakness HEENT: Reports: No Symptoms, Sinus Congestion Cardiovascular: Reports: No Symptoms Gastrointestinal: Reports: No Symptoms Genitourinary: Reports: No Symptoms Musculoskeletal: Reports: Shoulder Pain, Arm Pain Neurological: Reports: Weakness - Patient Data Vitals - Most Recent: Last Vital Signs Temp 97.8 F 10/24/20 09:49 Pulse 61 10/24/20 09:49 Resp 16 10/24/20 09:49 BP 137/73 10/24/20 09:56 Pulse Ox 97 10/24/20 09:49 Weight - Most Recent: 92.079 kg I&O - Last 24 Hours: Intake & Output 10/23/20 10/24/20 10/24/20 22:59 06:59 14:59 Intake Total 460 3379 Output Total 1100 1400 Balance -640 1979 Lab Results Last 24 Hours: Laboratory Results - last 24 hr 10/23/20 10/23/20 10/23/20 Range/Units 12:32 14:14 16:59 WBC (4.0-11.0) K/uL RBC (4.50-5.90) M/uL Hgb (13.0-17.0) g/dL Hct (38.0-50.0) % MCV (80.0-98.0) fL MCH (27.0-32.0) pg MCHC (31.0-37.0) g/dL RDW Std Deviation (28.0-62.0) fl RDW Coeff of Alfonso (11.0-15.0) % Plt Count (150-400) K/uL MPV (7.40-12.00) fL Neut % (Auto) (48.0-80.0) % Lymph % (Auto) (16.0-40.0) % [place] % (Auto) (0.0-15.0) % Eos % (Auto) (0.0-7.0) % Baso % (Auto) (0.0-1.5) % Neut # (Auto) (1.4-5.7) K/uL Lymph # (Auto) (0.6-2.4) K/uL [place] # (Auto) (0.0-0.8) K/uL Eos # (Auto) (0.0-0.7) K/uL Baso # (Auto) (0.0-0.1) K/uL Nucleated RBC % /100WBC Nucleated RBCs # K/uL APTT 56.4 H (18.6-31.3) SEC Sodium (136-148) mmol/L Potassium (3.5-5.1) mmol/L Chloride (98-107) mmol/L Carbon Dioxide (21.0-32.0) mmol/L BUN (7.0-18.0) mg/dL Creatinine (0.8-1.3) mg/dL Est Cr Clr Drug Dosing mL/min Estimated GFR (MDRD) ml/min Glucose (74-106) mg/dL POC Glucose 150 H 99 (60-110) mg/dL Calcium (8.5-10.1) mg/dL Total Bilirubin (0.2-1.0) mg/dL AST (15-37) IU/L ALT (14-63) IU/L Alkaline Phosphatase (46-116) U/L Total Protein (6.4-8.2) g/dL Albumin (3.4-5.0) g/dL Globulin (2.6-4.0) g/dL Albumin/Globulin Ratio (0.9-1.6) 10/23/20 10/24/20 10/24/20 Range/Units 20:21 06:10 06:10 WBC 4.84 (4.0-11.0) K/uL RBC 4.75 (4.50-5.90) M/uL Hgb 13.8 (13.0-17.0) g/dL Hct 41.2 (38.0-50.0) % MCV 86.7 (80.0-98.0) fL MCH 29.1 (27.0-32.0) pg MCHC 33.5 (31.0-37.0) g/dL RDW Std Deviation 41.7 (28.0-62.0) fl RDW Coeff of Alfonso 13 (11.0-15.0) % Plt Count 259 (150-400) K/uL MPV 9.90 (7.40-12.00) fL Neut % (Auto) 62.9 (48.0-80.0) % Lymph % (Auto) 22.9 (16.0-40.0) % [place] % (Auto) 9.9 (0.0-15.0) % Eos % (Auto) 3.7 (0.0-7.0) % Baso % (Auto) 0.6 (0.0-1.5) % Neut # (Auto) 3.0 (1.4-5.7) K/uL Lymph # (Auto) 1.1 (0.6-2.4) K/uL [place] # (Auto) 0.5 (0.0-0.8) K/uL Eos # (Auto) 0.2 (0.0-0.7) K/uL Baso # (Auto) 0.0 (0.0-0.1) K/uL Nucleated RBC % 0.0 /100WBC Nucleated RBCs # 0 K/uL APTT 58.3 H (18.6-31.3) SEC Sodium 141 (136-148) mmol/L Potassium 3.4 L (3.5-5.1) mmol/L Chloride 104 (98-107) mmol/L Carbon Dioxide 27.7 (21.0-32.0) mmol/L BUN 9 (7.0-18.0) mg/dL Creatinine 0.8 (0.8-1.3) mg/dL Est Cr Clr Drug Dosing 81.11 mL/min Estimated GFR (MDRD) > 60.0 ml/min Glucose 102 (74-106) mg/dL POC Glucose (60-110) mg/dL Calcium 8.4 L (8.5-10.1) mg/dL Total Bilirubin 0.9 (0.2-1.0) mg/dL AST 25 (15-37) IU/L ALT 20 (14-63) IU/L Alkaline Phosphatase 86 (46-116) U/L Total Protein 6.7 (6.4-8.2) g/dL Albumin 2.7 L (3.4-5.0) g/dL Globulin 4.0 (2.6-4.0) g/dL Albumin/Globulin Ratio 0.7 L (0.9-1.6) 10/24/20 10/24/20 Range/Units 06:10 07:11 WBC (4.0-11.0) K/uL RBC (4.50-5.90) M/uL Hgb (13.0-17.0) g/dL Hct (38.0-50.0) % MCV (80.0-98.0) fL MCH (27.0-32.0) pg MCHC (31.0-37.0) g/dL RDW Std Deviation (28.0-62.0) fl RDW Coeff of Alfonso (11.0-15.0) % Plt Count (150-400) K/uL MPV (7.40-12.00) fL Neut % (Auto) (48.0-80.0) % Lymph % (Auto) (16.0-40.0) % [place] % (Auto) (0.0-15.0) % Eos % (Auto) (0.0-7.0) % Baso % (Auto) (0.0-1.5) % Neut # (Auto) (1.4-5.7) K/uL Lymph # (Auto) (0.6-2.4) K/uL [place] # (Auto) (0.0-0.8) K/uL Eos # (Auto) (0.0-0.7) K/uL Baso # (Auto) (0.0-0.1) K/uL Nucleated RBC % /100WBC Nucleated RBCs # K/uL APTT 74.4 H (18.6-31.3) SEC Sodium (136-148) mmol/L Potassium (3.5-5.1) mmol/L Chloride (98-107) mmol/L Carbon Dioxide (21.0-32.0) mmol/L BUN (7.0-18.0) mg/dL Creatinine (0.8-1.3) mg/dL Est Cr Clr Drug Dosing mL/min Estimated GFR (MDRD) ml/min Glucose (74-106) mg/dL POC Glucose 95 (60-110) mg/dL Calcium (8.5-10.1) mg/dL Total Bilirubin (0.2-1.0) mg/dL AST (15-37) IU/L ALT (14-63) IU/L Alkaline Phosphatase (46-116) U/L Total Protein (6.4-8.2) g/dL Albumin (3.4-5.0) g/dL Globulin (2.6-4.0) g/dL Albumin/Globulin Ratio (0.9-1.6) Med Orders - Current: Current Medications Acetaminophen (Tylenol Extra Strength) 500 mg PO Q6H PRN PRN Reason: Pain Last Admin: 10/24/20 06:02 Dose: 500 mg Documented by: Albuterol/Ipratropium (Duoneb 3.0-0.5 Mg/3 Ml) 3 ml NEB Q4HRRT PRN PRN Reason: Shortness Of Breath/wheezing Amlodipine Besylate (Norvasc) 10 mg PO DAILY JOSTIN Last Admin: 10/24/20 09:56 Dose: 10 mg Documented by: Apixaban (Eliquis) 10 mg PO BID JOSTIN Last Admin: 10/24/20 09:55 Dose: 10 mg Documented by: Artificial Tears (Refresh Plus 0.5%) 1 each EYEBOTH BID JOSTIN Last Admin: 10/24/20 09:55 Dose: 1 each Documented by: Aspirin (Halfprin) 81 mg PO DAILY JOSTIN Last Admin: 10/24/20 09:56 Dose: 81 mg Documented by: Atenolol (Tenormin) 100 mg PO BEDTIME JOSTIN Last Admin: 10/23/20 21:36 Dose: 100 mg Documented by: Atorvastatin Calcium (Lipitor) 80 mg PO BEDTIME JOSTIN Last Admin: 10/23/20 21:35 Dose: 80 mg Documented by: Ciprofloxacin (Ciloxan 0.3% [facility]) 1 ml EYEBOTH Q4HR JOSTIN Dextrose/Water (Dextrose 50% In Water) 50 ml IV ASDIRECTED PRN PRN Reason: Hypoglycemia Glucagon (Glucagen) 1 mg IM ASDIRECTED PRN PRN Reason: Hypoglycemia Heparin Sodium/Sodium Chloride (Heparin 25,000 Units In 1/2 Ns 500 Ml) 500 mls @ 1.842 mls/hr IV TITRATE JOSTIN; Protocol Last Titration: 10/24/20 07:22 Dose: 14 units/kg/hr, 25.782 mls/hr Documented by: Sodium Chloride (Normal Saline) 1,000 mls @ 125 mls/hr IV CONTINUOUS JOSTIN Last Admin: 10/24/20 06:03 Dose: 125 mls/hr Documented by: Insulin Aspart (Novolog) 0 unit SUBCUT TIDAC [facility]; Protocol Last Admin: 10/24/20 07:25 Dose: Not Given Documented by: Melatonin (Melatonin) 3 mg PO BEDTIME PRN PRN Reason: Insomnia Ondansetron HCl (Zofran Odt) 4 mg PO Q4H PRN PRN Reason: nausea, able to take PO Pantoprazole Sodium (Protonix Iv) 40 mg IV BEDTIME [facility] Last Admin: 10/23/20 21:30 Dose: 40 mg Documented by: Budesonide/Formoterol 160-4.5 Mcg/Puff 6 Gm Inhaler 2 each INH BEDTIME [facility] Last Admin: 10/23/20 21:39 Dose: Not Given Documented by: Venlafaxine 25 Mg 25 each PO BID [facility] Last Admin: 10/24/20 10:29 Dose: Not Given Documented by: Sodium Chloride (Saline Flush) 10 ml FLUSH ASDIRECTED PRN PRN Reason: Keep Vein Open Last Admin: 10/22/20 14:14 Dose: 10 ml Documented by: Sodium Chloride (Saline Flush) 2.5 ml FLUSH ASDIRECTED PRN PRN Reason: Keep Vein Open Last Admin: 10/22/20 14:14 Dose: 2.5 ml Documented by: Tamsulosin [facility] ([facility]) [facility] Last Admin: 10/23/20 17:01 Dose: 0.4 mg Documented by: Discontinued Medications Heparin Sodium (Porcine) (Heparin Sodium) 5,000 units IVPUSH .BOLUS ONE; Protocol Stop: 10/22/20 18:33 Last Admin: 10/22/20 18:52 Dose: 5,000 units Documented by: Sodium Chloride (Normal Saline) 1,000 mls @ 999 mls/hr IV .Bolus ONE Stop: 10/22/20 15:04 Last Admin: 10/22/20 14:14 Dose: 999 mls/hr Documented by: Ibuprofen (Motrin) 400 mg PO Q6H PRN PRN Reason: Pain (mild 1-3) Iopamidol (Isovue Multipack-370 (76%)) 100 ml IVPUSH ONETIME STA Stop: 10/22/20 19:16 Last Admin: 10/22/20 19:16 Dose: 100 ml Documented by: Iopamidol (Isovue Multipack-370 (76%)) 100 ml IVPUSH ONETIME ONE Stop: 10/23/20 15:36 Last Admin: 10/23/20 15:36 Dose: 100 ml Documented by: Morphine Sulfate (Morphine) 4 mg IVPUSH ONETIME ONE Stop: 10/22/20 14:05 Last Admin: 10/22/20 14:13 Dose: 4 mg Documented by: Morphine Sulfate (Morphine) 4 mg IVPUSH ONETIME ONE Stop: 10/22/20 17:46 Last Admin: 10/22/20 17:50 Dose: 4 mg Documented by: Morphine Sulfate (Morphine) 1 mg IVPUSH Q2H PRN PRN Reason: Pain (severe 7-10) Stop: 10/23/20 19:22 Morphine Sulfate (Morphine) 1 mg IVPUSH Q2H PRN PRN Reason: Pain (severe 7-10) Stop: 10/23/20 19:22 Last Admin: 10/23/20 15:45 Dose: 1 mg Documented by: Pantoprazole Sodium (Protonix Iv) 40 mg IV Q24H JOSTIN Last Admin: 10/22/20 23:20 Dose: Not Given Documented by: Potassium Chloride (Klor-Con M20) 40 meq PO ONETIME ONE Stop: 10/24/20 07:50 Last Admin: 10/24/20 09:58 Dose: 40 meq Documented by: - Exam General: Alert, Oriented, No Acute Distress HEENT: EOMI, Other (mild left eye injection w. copius discharge ) Neck: Supple Lungs: Clear to Auscultation, Normal Respiratory Effort Cardiovascular: Regular Rate, Regular Rhythm GI/Abdominal Exam: Soft, Non-Tender Back Exam: Normal Inspection Extremities: Other (right shoulder: incision sites clean; no surrounding erythema and or obvious isgn of infection. Gerneralized tenderness over shoulder and arm. passive/acitve ROM limited by pain ; capillary refill and snesation intact ; now in sling w.o issues in adducted to 90 deg position. ) Wound/Incisions: Healing Well Neurological: No New Focal Deficit Psy/Mental Status: Alert Sepsis Event Note - Evaluation Sepsis Screening Result: No Definite Risk - Focused Exam Vital Signs: Vital Signs Temp Pulse Resp BP BP Pulse Ox 10/24/20 09:56 137/73 10/24/20 09:49 97.8 F 61 16 137/73 97 10/24/20 04:00 98.1 F 60 18 132/60 95 10/24/20 00:00 97.2 F 69 16 128/59 L 95 - Problem List & Annotations (1) Hypoxia SNOMED Code(s): 888512703 Code(s): R09.02 - HYPOXEMIA Status: Acute Current Visit: Yes (2) Pulmonary embolism SNOMED Code(s): 06230510 Code(s): I26.99 - OTHER PULMONARY EMBOLISM WITHOUT ACUTE COR PULMONALE Status: Acute Current Visit: Yes - Problem List Review Problem List Initiated/Reviewed/Updated: Yes - My Orders Last 24 Hours: My Active Orders 10/23/20 13:19 RT Post Treatment Assessment [RC] Click to Edit RT Pre-Treatment Assessment [RC] Click to Edit 10/23/20 17:30 Tamsulosin [Flomax] 0.4 mg PO WITHDINNER 10/23/20 18:58 Obtain Past Medical Record [OM.PC] Routine 10/23/20 21:00 Patient's Own Medication [Ptom] 2 each INH BEDTIME Patient's Own Medication [Ptom] 25 each PO BID atenoloL [Tenormin] 100 mg PO BEDTIME atorvaSTATin [Lipitor] 80 mg PO BEDTIME 10/24/20 09:00 Apixaban [Eliquis] 10 mg PO BID 10/24/20 12:00 Ciprofloxacin [Ciloxan 0.3% Ophth Soln] 1 ml EYEBOTH Q4HR 10/24/20 21:00 Melatonin 3 mg PO BEDTIME PRN 10/25/20 05:11 CBC WITH AUTO DIFF [HEME] AM COMPREHENSIVE METABOLIC PN,CMP [CHEM] AM - Plan Plan:: Assessment: 1. Acute hypoxic respiratory failure secondary to pulmonary emboli (right upper/lower lobe) 2. Status post right shoulder/rotator cuff surgery POD#10 3. Generalized weakness 4. Elevated CPK 4. Past medical history: Type 2 diabetes, hypertension, hyperlipidemia, coronary artery disease status post stent, depression/anxiety. Plan: 1. Acute hypoxic respiratory failure secondary to pulmonary emboli: now on RA ; not requiring supplemental o2 Heparin drip : continue. patient can stay with friend in [place] post-op; but still may consider DOAC in light of his precarious state/ living situation HAS-BLED: 3; however may require this secondary to PE post-op Start Eliquis 10 mg BID x 10 days ; 5 mg thereafter bid 2. Elevated CPK: improving most likely from prolonged immobilization; continue fluids NS and avoid nephrotoxins Generalized muscle tenderness/weakness: likely etiology along with deconditioning for ambulatory dysfunction; continue to work with PT for strength and balance. On telemetry 3. Generalized weakness: POD#10 ; continue PT/OT; will require records from [facility] regarding post-op protocol; can restart shoulder sling as instructed ; continue PT to avoid adhesive capsulitis 4. DM: SSI+TID accu-checks 5. HTN: restart amlodipine/atenolol; hold HCTZ/lisinopril once hydration status is improved; including creatinine 6. HLD: hold statin in light of significant CPK increase and myalgia; restart once appropriate 7. CAD s/p PCI: continue ASA; continue telemetry 8. Depression/anxiety: continue SSRI 9. Conjunctivitis : start ciprofloxacin eye drops both eyes UA negative COVID negative LAD PCI FALGUNI 11/05/2018 ECHO 2019: preserved LVEF, mild MR , Mild TR , trace TR <Diya Zazueta - Last Filed: 10/24/20 14:35> - Patient Data Vitals - Most Recent: Last Vital Signs Temp 37.1 C 10/24/20 13:18 Pulse 71 10/24/20 13:18 Resp 16 10/24/20 13:18 BP 138/66 10/24/20 13:18 Pulse Ox 96 10/24/20 13:18 I&O - Last 24 Hours: Intake & Output 10/23/20 10/24/20 10/24/20 22:59 06:59 14:59 Intake Total 460 3379 Output Total 1100 1400 Balance -640 4286 Lab Results Last 24 Hours: Laboratory Results - last 24 hr 10/23/20 10/23/20 10/23/20 Range/Units 14:14 16:59 20:21 WBC (4.0-11.0) K/uL RBC (4.50-5.90) M/uL Hgb (13.0-17.0) g/dL Hct (38.0-50.0) % MCV (80.0-98.0) fL MCH (27.0-32.0) pg MCHC (31.0-37.0) g/dL RDW Std Deviation (28.0-62.0) fl RDW Coeff of Alfonso (11.0-15.0) % Plt Count (150-400) K/uL MPV (7.40-12.00) fL Neut % (Auto) (48.0-80.0) % Lymph % (Auto) (16.0-40.0) % [place] % (Auto) (0.0-15.0) % Eos % (Auto) (0.0-7.0) % Baso % (Auto) (0.0-1.5) % Neut # (Auto) (1.4-5.7) K/uL Lymph # (Auto) (0.6-2.4) K/uL [place] # (Auto) (0.0-0.8) K/uL Eos # (Auto) (0.0-0.7) K/uL Baso # (Auto) (0.0-0.1) K/uL Nucleated RBC % /100WBC Nucleated RBCs # K/uL APTT 56.4 H 58.3 H (18.6-31.3) SEC Sodium (136-148) mmol/L Potassium (3.5-5.1) mmol/L Chloride (98-107) mmol/L Carbon Dioxide (21.0-32.0) mmol/L BUN (7.0-18.0) mg/dL Creatinine (0.8-1.3) mg/dL Est Cr Clr Drug Dosing mL/min Estimated GFR (MDRD) ml/min Glucose (74-106) mg/dL POC Glucose 99 (60-110) mg/dL Calcium (8.5-10.1) mg/dL Total Bilirubin (0.2-1.0) mg/dL AST (15-37) IU/L ALT (14-63) IU/L Alkaline Phosphatase (46-116) U/L Total Protein (6.4-8.2) g/dL Albumin (3.4-5.0) g/dL Globulin (2.6-4.0) g/dL Albumin/Globulin Ratio (0.9-1.6) 10/24/20 10/24/20 10/24/20 Range/Units 06:10 06:10 06:10 WBC 4.84 (4.0-11.0) K/uL RBC 4.75 (4.50-5.90) M/uL Hgb 13.8 (13.0-17.0) g/dL Hct 41.2 (38.0-50.0) % MCV 86.7 (80.0-98.0) fL MCH 29.1 (27.0-32.0) pg MCHC 33.5 (31.0-37.0) g/dL RDW Std Deviation 41.7 (28.0-62.0) fl RDW Coeff of Alfonso 13 (11.0-15.0) % Plt Count 259 (150-400) K/uL MPV 9.90 (7.40-12.00) fL Neut % (Auto) 62.9 (48.0-80.0) % Lymph % (Auto) 22.9 (16.0-40.0) % [place] % (Auto) 9.9 (0.0-15.0) % Eos % (Auto) 3.7 (0.0-7.0) % Baso % (Auto) 0.6 (0.0-1.5) % Neut # (Auto) 3.0 (1.4-5.7) K/uL Lymph # (Auto) 1.1 (0.6-2.4) K/uL [place] # (Auto) 0.5 (0.0-0.8) K/uL Eos # (Auto) 0.2 (0.0-0.7) K/uL Baso # (Auto) 0.0 (0.0-0.1) K/uL Nucleated RBC % 0.0 /100WBC Nucleated RBCs # 0 K/uL APTT 74.4 H (18.6-31.3) SEC Sodium 141 (136-148) mmol/L Potassium 3.4 L (3.5-5.1) mmol/L Chloride 104 (98-107) mmol/L Carbon Dioxide 27.7 (21.0-32.0) mmol/L BUN 9 (7.0-18.0) mg/dL Creatinine 0.8 (0.8-1.3) mg/dL Est Cr Clr Drug Dosing 81.11 mL/min Estimated GFR (MDRD) > 60.0 ml/min Glucose 102 (74-106) mg/dL POC Glucose (60-110) mg/dL Calcium 8.4 L (8.5-10.1) mg/dL Total Bilirubin 0.9 (0.2-1.0) mg/dL AST 25 (15-37) IU/L ALT 20 (14-63) IU/L Alkaline Phosphatase 86 (46-116) U/L Total Protein 6.7 (6.4-8.2) g/dL Albumin 2.7 L (3.4-5.0) g/dL Globulin 4.0 (2.6-4.0) g/dL Albumin/Globulin Ratio 0.7 L (0.9-1.6) 10/24/20 10/24/20 10/24/20 Range/Units 07:11 13:09 13:25 WBC (4.0-11.0) K/uL RBC (4.50-5.90) M/uL Hgb (13.0-17.0) g/dL Hct (38.0-50.0) % MCV (80.0-98.0) fL MCH (27.0-32.0) pg MCHC (31.0-37.0) g/dL RDW Std Deviation (28.0-62.0) fl RDW Coeff of Alfonso (11.0-15.0) % Plt Count (150-400) K/uL MPV (7.40-12.00) fL Neut % (Auto) (48.0-80.0) % Lymph % (Auto) (16.0-40.0) % [place] % (Auto) (0.0-15.0) % Eos % (Auto) (0.0-7.0) % Baso % (Auto) (0.0-1.5) % Neut # (Auto) (1.4-5.7) K/uL Lymph # (Auto) (0.6-2.4) K/uL [place] # (Auto) (0.0-0.8) K/uL Eos # (Auto) (0.0-0.7) K/uL Baso # (Auto) (0.0-0.1) K/uL Nucleated RBC % /100WBC Nucleated RBCs # K/uL APTT 95.2 H (18.6-31.3) SEC Sodium (136-148) mmol/L Potassium (3.5-5.1) mmol/L Chloride (98-107) mmol/L Carbon Dioxide (21.0-32.0) mmol/L BUN (7.0-18.0) mg/dL Creatinine (0.8-1.3) mg/dL Est Cr Clr Drug Dosing mL/min Estimated GFR (MDRD) ml/min Glucose (74-106) mg/dL POC Glucose 95 181 H (60-110) mg/dL Calcium (8.5-10.1) mg/dL Total Bilirubin (0.2-1.0) mg/dL AST (15-37) IU/L ALT (14-63) IU/L Alkaline Phosphatase (46-116) U/L Total Protein (6.4-8.2) g/dL Albumin (3.4-5.0) g/dL Globulin (2.6-4.0) g/dL Albumin/Globulin Ratio (0.9-1.6) Med Orders - Current: Current Medications Acetaminophen (Tylenol Extra Strength) 500 mg PO Q6H PRN PRN Reason: Pain Last Admin: 10/24/20 13:11 Dose: 500 mg Documented by: Albuterol/Ipratropium (Duoneb 3.0-0.5 Mg/3 Ml) 3 ml NEB Q4HRRT PRN PRN Reason: Shortness Of Breath/wheezing Amlodipine Besylate (Norvasc) 10 mg PO DAILY [facility] Last Admin: 10/24/20 09:56 Dose: 10 mg Documented by: Apixaban (Eliquis) 10 mg PO BID [facility] Last Admin: 10/24/20 09:55 Dose: 10 mg Documented by: Artificial Tears (Refresh Plus 0.5%) 1 each EYEBOTH BID [facility] Last Admin: 10/24/20 09:55 Dose: 1 each Documented by: Aspirin (Halfprin) 81 mg PO DAILY [facility] Last Admin: 10/24/20 09:56 Dose: 81 mg Documented by: Atenolol (Tenormin) 100 mg PO BEDTIME [facility] Last Admin: 10/23/20 21:36 Dose: 100 mg Documented by: Atorvastatin Calcium (Lipitor) 80 mg PO BEDTIME [facility] Last Admin: 10/23/20 21:35 Dose: 80 mg Documented by: Ciprofloxacin (Ciloxan 0.3% Ophth Soln) 1 ml EYEBOTH Q4HR JOSTIN Last Admin: 10/24/20 13:10 Dose: 1 drop Documented by: Dextrose/Water (Dextrose 50% In Water) 50 ml IV ASDIRECTED PRN PRN Reason: Hypoglycemia Glucagon (Glucagen) 1 mg IM ASDIRECTED PRN PRN Reason: Hypoglycemia Heparin Sodium/Sodium Chloride (Heparin 25,000 Units In 1/2 Ns 500 Ml) 500 mls @ 1.842 mls/hr IV TITRATE JOSTIN; Protocol Last Titration: 10/24/20 07:22 Dose: 14 units/kg/hr, 25.782 mls/hr Documented by: Sodium Chloride (Normal Saline) 1,000 mls @ 125 mls/hr IV CONTINUOUS JOSTIN Last Admin: 10/24/20 06:03 Dose: 125 mls/hr Documented by: Insulin Aspart (Novolog) 0 unit SUBCUT TIDAC [facility]; Protocol Last Admin: 10/24/20 13:10 Dose: Not Given Documented by: Melatonin (Melatonin) 3 mg PO BEDTIME PRN PRN Reason: Insomnia Ondansetron HCl (Zofran Odt) 4 mg PO Q4H PRN PRN Reason: nausea, able to take PO Pantoprazole Sodium (Protonix Iv) 40 mg IV BEDTIME [facility] Last Admin: 10/23/20 21:30 Dose: 40 mg Documented by: Budesonide/Formoterol 160-4.5 Mcg/Puff 6 Gm Inhaler 2 each INH BEDTIME JOSTIN Last Admin: 10/23/20 21:39 Dose: Not Given Documented by: Venlafaxine 25 Mg 25 each PO BID [facility] Last Admin: 10/24/20 10:29 Dose: Not Given Documented by: Sodium Chloride (Saline Flush) 10 ml FLUSH ASDIRECTED PRN PRN Reason: Keep Vein Open Last Admin: 10/22/20 14:14 Dose: 10 ml Documented by: Sodium Chloride (Saline Flush) 2.5 ml FLUSH ASDIRECTED PRN PRN Reason: Keep Vein Open Last Admin: 10/22/20 14:14 Dose: 2.5 ml Documented by: Tamsulosin HCl (Flomax) 0.4 mg PO [facility] [place] Last Admin: 10/23/20 17:01 Dose: 0.4 mg Documented by: Discontinued Medications Heparin Sodium (Porcine) (Heparin Sodium) 5,000 units IVPUSH .BOLUS ONE; Protocol Stop: 10/22/20 18:33 Last Admin: 10/22/20 18:52 Dose: 5,000 units Documented by: Sodium Chloride (Normal Saline) 1,000 mls @ 999 mls/hr IV .Bolus ONE Stop: 10/22/20 15:04 Last Admin: 10/22/20 14:14 Dose: 999 mls/hr Documented by: Ibuprofen (Motrin) 400 mg PO Q6H PRN PRN Reason: Pain (mild 1-3) Iopamidol (Isovue Multipack-370 (76%)) 100 ml IVPUSH ONETIME STA Stop: 10/22/20 19:16 Last Admin: 10/22/20 19:16 Dose: 100 ml Documented by: Iopamidol (Isovue Multipack-370 (76%)) 100 ml IVPUSH ONETIME ONE Stop: 10/23/20 15:36 Last Admin: 10/23/20 15:36 Dose: 100 ml Documented by: Morphine Sulfate (Morphine) 4 mg IVPUSH ONETIME ONE Stop: 10/22/20 14:05 Last Admin: 10/22/20 14:13 Dose: 4 mg Documented by: Morphine Sulfate (Morphine) 4 mg IVPUSH ONETIME ONE Stop: 10/22/20 17:46 Last Admin: 10/22/20 17:50 Dose: 4 mg Documented by: Morphine Sulfate (Morphine) 1 mg IVPUSH Q2H PRN PRN Reason: Pain (severe 7-10) Stop: 10/23/20 19:22 Morphine Sulfate (Morphine) 1 mg IVPUSH Q2H PRN PRN Reason: Pain (severe 7-10) Stop: 10/23/20 19:22 Last Admin: 10/23/20 15:45 Dose: 1 mg Documented by: Pantoprazole Sodium (Protonix Iv) 40 mg IV Q24H [facility] [place] Last Admin: 10/22/20 23:20 Dose: Not Given Documented by: Potassium Chloride (Klor-Con M20) 40 meq PO ONETIME ONE Stop: 10/24/20 07:50 Last Admin: 10/24/20 09:58 Dose: 40 meq Documented by: Sepsis Event Note - Focused Exam Vital Signs: Vital Signs Temp Pulse Resp BP BP Pulse Ox 10/24/20 13:18 37.1 C 71 16 138/66 96 10/24/20 09:56 137/73 10/24/20 09:49 36.6 C 61 16 137/73 97 10/24/20 04:00 36.7 C 60 18 132/60 95 - My Orders Last 24 Hours: My Active Orders 10/25/20 05:00 PTT,PARTIAL THROMBOPLSTIN TIME [COAG] Timed - Plan Plan:: I have seen and evaluated the patient and agree with the residents note unless specified in my note
[2020-10-24] MEDS: Ciprofloxacin 0.3% Ophth Soln 2.5 ML Bottle EYEBOTH SCH ×4 (13:10→23:37)
[2020-10-24] MEDS: Docusate Sodium 100 MG Cap PO PRN (16:49)
[2020-10-24] MEDS: Tamsulosin 0.4 MG Cap.ER PO SCH (16:49)
[2020-10-24] MEDS ORDERED: Heparin Sodium 5,000 Units/ML Vial IVPUSH ONE (19:48)
[2020-10-24] MEDS: atorvaSTATin 40 MG Tab PO SCH (20:28)
[2020-10-24] MEDS: Atenolol 50 MG Tab PO SCH (20:29)
[2020-10-24] MEDS: Pantoprazole 40 MG Vial IV SCH (20:29)
[2020-10-24] MEDS ORDERED: Melatonin 3 MG Tab PO PRN (21:00)
[2020-10-24] MEDS: Budesonide/Formoterol 160-4.5 MCG/Puff 6 GM Inhaler INH SCH (21:45)
[2020-10-25] MEDS: Acetaminophen 500 MG Tab PO PRN ×3 (03:33→17:32)
[2020-10-25] MEDS: Sodium Chloride 0.9% 1,000 ML IV SCH ×2 (03:45→14:45)
[2020-10-25] MEDS: Heparin Sodium/0.45% NaCl 500 ML IV SCH (03:45)
[2020-10-25] MEDS: Ciprofloxacin 0.3% Ophth Soln 2.5 ML Bottle EYEBOTH SCH ×5 (05:27→20:05)
[2020-10-25 05:51] LABS: BLOOD UREA NITROGEN,BUN 7 mg/dL (7.0-18.0); CHLORIDE,CL 108 mmol/L (98-107); GLUCOSE RANDOM 110 mg/dL (74-106); POTASSIUM,K 3.6 mmol/L (3.5-5.1); SODIUM,NA 143 mmol/L (136-148)
[2020-10-25] MEDS: Insulin Aspart 100 Units/ML 3 ML Pen SUBCUT SCH ×3 (07:47→17:31)
[2020-10-25] MEDS: Carboxymethylcellulose Sodium 0.5% Ophth Soln 0.4 ML UD Box of 30 EYEBOTH SCH ×2 (09:43→20:05)
[2020-10-25] MEDS: Aspirin 81 MG Tab.EC PO SCH (09:45)
[2020-10-25] MEDS: Apixaban 5 MG Tab PO SCH ×2 (09:45→20:06)
[2020-10-25] MEDS: amLODIPine 5 MG Tab PO SCH (09:45)
[2020-10-25] MEDS: VENLAFAXINE 25 MG PO SCH (10:37)
[2020-10-25] MEDS: Venlafaxine 37.5 MG Tab PO SCH ×3 (10:41→22:41)
--- NOTE | 2020-10-25 12:04 | PCM.PN ---
- General Info Date of Service: 10/25/20 - Review of Systems Systems Review Comment:: reports feeling better - Patient Data Vitals - Most Recent: Last Vital Signs Temp 36.4 C 10/25/20 09:39 Pulse 68 10/25/20 09:39 Resp 16 10/25/20 09:39 BP 136/91 H 10/25/20 09:45 Pulse Ox 97 10/25/20 09:39 Weight - Most Recent: 92.079 kg I&O - Last 24 Hours: Intake & Output 10/24/20 10/25/20 10/25/20 22:59 06:59 14:59 Intake Total 2250 1620 Output Total 960 1070 Balance 1290 550 Lab Results Last 24 Hours: Laboratory Results - last 24 hr 10/24/20 10/24/20 10/24/20 Range/Units 13:09 13:25 16:54 WBC (4.0-11.0) K/uL RBC (4.50-5.90) M/uL Hgb (13.0-17.0) g/dL Hct (38.0-50.0) % MCV (80.0-98.0) fL MCH (27.0-32.0) pg MCHC (31.0-37.0) g/dL RDW Std Deviation (28.0-62.0) fl RDW Coeff of Alfonso (11.0-15.0) % Plt Count (150-400) K/uL MPV (7.40-12.00) fL Neut % (Auto) (48.0-80.0) % Lymph % (Auto) (16.0-40.0) % [place] % (Auto) (0.0-15.0) % Eos % (Auto) (0.0-7.0) % Baso % (Auto) (0.0-1.5) % Neut # (Auto) (1.4-5.7) K/uL Lymph # (Auto) (0.6-2.4) K/uL [place] # (Auto) (0.0-0.8) K/uL Eos # (Auto) (0.0-0.7) K/uL Baso # (Auto) (0.0-0.1) K/uL Nucleated RBC % /100WBC Nucleated RBCs # K/uL APTT 95.2 H (18.6-31.3) SEC Sodium (136-148) mmol/L Potassium (3.5-5.1) mmol/L Chloride (98-107) mmol/L Carbon Dioxide (21.0-32.0) mmol/L BUN (7.0-18.0) mg/dL Creatinine (0.8-1.3) mg/dL Est Cr Clr Drug Dosing mL/min Estimated GFR (MDRD) ml/min Glucose (74-106) mg/dL POC Glucose 181 H 153 H (60-110) mg/dL Calcium (8.5-10.1) mg/dL Total Bilirubin (0.2-1.0) mg/dL AST (15-37) IU/L ALT (14-63) IU/L Alkaline Phosphatase (46-116) U/L Total Protein (6.4-8.2) g/dL Albumin (3.4-5.0) g/dL Globulin (2.6-4.0) g/dL Albumin/Globulin Ratio (0.9-1.6) 10/24/20 10/25/20 10/25/20 Range/Units 19:03 00:20 05:25 WBC 5.45 (4.0-11.0) K/uL RBC 4.60 (4.50-5.90) M/uL Hgb 13.3 (13.0-17.0) g/dL Hct 39.7 (38.0-50.0) % MCV 86.3 (80.0-98.0) fL MCH 28.9 (27.0-32.0) pg MCHC 33.5 (31.0-37.0) g/dL RDW Std Deviation 41.6 (28.0-62.0) fl RDW Coeff of Alfonso 13 (11.0-15.0) % Plt Count 253 (150-400) K/uL MPV 9.50 (7.40-12.00) fL Neut % (Auto) 68.4 (48.0-80.0) % Lymph % (Auto) 20.4 (16.0-40.0) % [place] % (Auto) 7.7 (0.0-15.0) % Eos % (Auto) 2.8 (0.0-7.0) % Baso % (Auto) 0.7 (0.0-1.5) % Neut # (Auto) 3.7 (1.4-5.7) K/uL Lymph # (Auto) 1.1 (0.6-2.4) K/uL [place] # (Auto) 0.4 (0.0-0.8) K/uL Eos # (Auto) 0.2 (0.0-0.7) K/uL Baso # (Auto) 0.0 (0.0-0.1) K/uL Nucleated RBC % 0.0 /100WBC Nucleated RBCs # 0 K/uL APTT 47.2 H 68.8 H (18.6-31.3) SEC Sodium (136-148) mmol/L Potassium (3.5-5.1) mmol/L Chloride (98-107) mmol/L Carbon Dioxide (21.0-32.0) mmol/L BUN (7.0-18.0) mg/dL Creatinine (0.8-1.3) mg/dL Est Cr Clr Drug Dosing mL/min Estimated GFR (MDRD) ml/min Glucose (74-106) mg/dL POC Glucose (60-110) mg/dL Calcium (8.5-10.1) mg/dL Total Bilirubin (0.2-1.0) mg/dL AST (15-37) IU/L ALT (14-63) IU/L Alkaline Phosphatase (46-116) U/L Total Protein (6.4-8.2) g/dL Albumin (3.4-5.0) g/dL Globulin (2.6-4.0) g/dL Albumin/Globulin Ratio (0.9-1.6) 10/25/20 10/25/20 Range/Units 05:25 05:25 WBC (4.0-11.0) K/uL RBC (4.50-5.90) M/uL Hgb (13.0-17.0) g/dL Hct (38.0-50.0) % MCV (80.0-98.0) fL MCH (27.0-32.0) pg MCHC (31.0-37.0) g/dL RDW Std Deviation (28.0-62.0) fl RDW Coeff of Alfonso (11.0-15.0) % Plt Count (150-400) K/uL MPV (7.40-12.00) fL Neut % (Auto) (48.0-80.0) % Lymph % (Auto) (16.0-40.0) % [place] % (Auto) (0.0-15.0) % Eos % (Auto) (0.0-7.0) % Baso % (Auto) (0.0-1.5) % Neut # (Auto) (1.4-5.7) K/uL Lymph # (Auto) (0.6-2.4) K/uL [place] # (Auto) (0.0-0.8) K/uL Eos # (Auto) (0.0-0.7) K/uL Baso # (Auto) (0.0-0.1) K/uL Nucleated RBC % /100WBC Nucleated RBCs # K/uL APTT 65.1 H (18.6-31.3) SEC Sodium 143 (136-148) mmol/L Potassium 3.6 (3.5-5.1) mmol/L Chloride 108 H (98-107) mmol/L Carbon Dioxide 25.0 (21.0-32.0) mmol/L BUN 7 (7.0-18.0) mg/dL Creatinine 0.9 (0.8-1.3) mg/dL Est Cr Clr Drug Dosing 72.10 mL/min Estimated GFR (MDRD) > 60.0 ml/min Glucose 110 H (74-106) mg/dL POC Glucose (60-110) mg/dL Calcium 8.1 L (8.5-10.1) mg/dL Total Bilirubin 0.7 (0.2-1.0) mg/dL AST 24 (15-37) IU/L ALT 19 (14-63) IU/L Alkaline Phosphatase 79 (46-116) U/L Total Protein 6.3 L (6.4-8.2) g/dL Albumin 2.6 L (3.4-5.0) g/dL Globulin 3.7 (2.6-4.0) g/dL Albumin/Globulin Ratio 0.7 L (0.9-1.6) Med Orders - Current: Current Medications Acetaminophen (Tylenol Extra Strength) 500 mg PO Q6H PRN PRN Reason: Pain Last Admin: 10/25/20 09:46 Dose: 500 mg Documented by: Albuterol/Ipratropium (Duoneb 3.0-0.5 Mg/3 Ml) 3 ml NEB Q4HRRT PRN PRN Reason: Shortness Of Breath/wheezing Amlodipine Besylate (Norvasc) 10 mg PO DAILY [facility] Last Admin: 10/25/20 09:45 Dose: 10 mg Documented by: Apixaban (Eliquis) 10 mg PO BID [facility] Last Admin: 10/25/20 09:45 Dose: 10 mg Documented by: Artificial Tears (Refresh Plus 0.5%) 1 each EYEBOTH BID [facility] Last Admin: 10/25/20 09:43 Dose: 1 each Documented by: Aspirin (Halfprin) 81 mg PO DAILY [facility] Last Admin: 10/25/20 09:45 Dose: 81 mg Documented by: Atenolol (Tenormin) 100 mg PO BEDTIME [facility] Last Admin: 10/24/20 20:29 Dose: 100 mg Documented by: Atorvastatin Calcium (Lipitor) 80 mg PO BEDTIME [facility] Last Admin: 10/24/20 20:28 Dose: 80 mg Documented by: Ciprofloxacin (Ciloxan 0.3% [facility] Sol) 1 ml EYEBOTH Q4HR [facility] Last Admin: 10/25/20 09:43 Dose: 1 drop Documented by: Dextrose/Water (Dextrose 50% In Water) 50 ml IV ASDIRECTED PRN PRN Reason: Hypoglycemia Docusate Sodium (Colace) 100 mg PO DAILY PRN PRN Reason: Constipation Last Admin: 10/24/20 16:49 Dose: 100 mg Documented by: Glucagon (Glucagen) 1 mg IM ASDIRECTED PRN PRN Reason: Hypoglycemia Heparin Sodium/Sodium Chloride (Heparin 25,000 Units In 1/2 Ns 500 Ml) 500 mls @ 1.842 mls/hr IV TITRATE [facility]; Protocol Last Admin: 10/25/20 03:45 Dose: 13 units/kg/hr, 23.941 mls/hr Documented by: Sodium Chloride (Normal Saline) 1,000 mls @ 100 mls/hr IV CONTINUOUS [facility] Last Admin: 10/25/20 03:45 Dose: 100 mls/hr Documented by: Insulin Aspart (Novolog) 0 unit SUBCUT TIDAC [facility]; Protocol Last Admin: 10/25/20 07:47 Dose: Not Given Documented by: Melatonin (Melatonin) 3 mg PO BEDTIME PRN PRN Reason: Insomnia Last Admin: 10/24/20 21:40 Dose: 3 mg Documented by: Ondansetron HCl (Zofran Odt) 4 mg PO Q4H PRN PRN Reason: nausea, able to take PO Pantoprazole Sodium (Protonix Iv) 40 mg IV BEDTIME [facility] Last Admin: 10/24/20 20:29 Dose: 40 mg Documented by: Budesonide/Formoterol 160-4.5 Mcg/Puff 6 Gm Inhaler 2 each INH BEDTIME [facility] Last Admin: 10/24/20 21:45 Dose: Not Given Documented by: Sodium Chloride (Saline Flush) 10 ml FLUSH ASDIRECTED PRN PRN Reason: Keep Vein Open Last Admin: 10/22/20 14:14 Dose: 10 ml Documented by: Sodium Chloride (Saline Flush) 2.5 ml FLUSH ASDIRECTED PRN PRN Reason: Keep Vein Open Last Admin: 10/22/20 14:14 Dose: 2.5 ml Documented by: Tamsulosin HCl (Flomax) 0.4 mg PO WITHDINNER [facility] Last Admin: 10/24/20 16:49 Dose: 0.4 mg Documented by: Venlafaxine HCl (Effexor) 18.75 mg PO TID [facility] Last Admin: 10/25/20 10:41 Dose: 18.75 mg Documented by: Discontinued Medications Heparin Sodium (Porcine) (Heparin Sodium) 5,000 units IVPUSH .BOLUS ONE; Protocol Stop: 10/22/20 18:33 Last Admin: 10/22/20 18:52 Dose: 5,000 units Documented by: Heparin Sodium (Porcine) (Heparin Sodium) 1,500 units IVPUSH ONETIME ONE Stop: 10/24/20 19:49 Last Admin: 10/24/20 20:29 Dose: 1,500 units Documented by: Sodium Chloride (Normal Saline) 1,000 mls @ 999 mls/hr IV .Bolus ONE Stop: 10/22/20 15:04 Last Admin: 10/22/20 14:14 Dose: 999 mls/hr Documented by: Ibuprofen (Motrin) 400 mg PO Q6H PRN PRN Reason: Pain (mild 1-3) Iopamidol (Isovue Multipack-370 (76%)) 100 ml IVPUSH ONETIME STA Stop: 10/22/20 19:16 Last Admin: 10/22/20 19:16 Dose: 100 ml Documented by: Iopamidol (Isovue Multipack-370 (76%)) 100 ml IVPUSH ONETIME ONE Stop: 10/23/20 15:36 Last Admin: 10/23/20 15:36 Dose: 100 ml Documented by: Morphine Sulfate (Morphine) 4 mg IVPUSH ONETIME ONE Stop: 10/22/20 14:05 Last Admin: 10/22/20 14:13 Dose: 4 mg Documented by: Morphine Sulfate (Morphine) 4 mg IVPUSH ONETIME ONE Stop: 10/22/20 17:46 Last Admin: 10/22/20 17:50 Dose: 4 mg Documented by: Morphine Sulfate (Morphine) 1 mg IVPUSH Q2H PRN PRN Reason: Pain (severe 7-10) Stop: 10/23/20 19:22 Morphine Sulfate (Morphine) 1 mg IVPUSH Q2H PRN PRN Reason: Pain (severe 7-10) Stop: 10/23/20 19:22 Last Admin: 10/23/20 15:45 Dose: 1 mg Documented by: Pantoprazole Sodium (Protonix Iv) 40 mg IV Q24H [facility] Last Admin: 10/22/20 23:20 Dose: Not Given Documented by: Venlafaxine 25 Mg 25 each PO BID [facility] Last Admin: 10/25/20 10:37 Dose: Not Given Documented by: Potassium Chloride (Klor-Con M20) 40 meq PO ONETIME ONE Stop: 10/24/20 07:50 Last Admin: 10/24/20 09:58 Dose: 40 meq Documented by: - Exam General: Alert, Oriented Lungs: Clear to Auscultation, Normal Respiratory Effort Cardiovascular: Regular Rate, Regular Rhythm GI/Abdominal Exam: Soft, Non-Tender, No Distention Extremities: Non-Tender, No Pedal Edema Skin: Warm, Dry, Intact Neurological: No New Focal Deficit Sepsis Event Note - Evaluation Sepsis Screening Result: No Definite Risk - Focused Exam Vital Signs: Vital Signs Temp Pulse Resp BP BP Pulse Ox 10/25/20 09:45 136/91 H 10/25/20 09:39 36.4 C 68 16 136/91 H 97 10/25/20 04:00 36.8 C 63 16 134/67 95 - Problem List Review Problem List Initiated/Reviewed/Updated: Yes - My Orders Last 24 Hours: My Active Orders 10/25/20 10:35 Venlafaxine [Effexor] 18.75 mg PO TID 10/26/20 05:00 PTT,PARTIAL THROMBOPLSTIN TIME [COAG] Routine 10/26/20 05:11 BASIC METABOLIC PANEL,BMP [CHEM] AM CBC WITH AUTO DIFF [HEME] AM - Plan Plan:: Plan: 74 yo male admitted for PE, s/p rotator cuff repair. Continue Geo PT consulted and will reevaluate on Monday for possible discharge home
[2020-10-25] MEDS: Docusate Sodium 100 MG Cap PO PRN (17:32)
[2020-10-25] MEDS: Tamsulosin 0.4 MG Cap.ER PO SCH (17:32)
[2020-10-25] MEDS: Atenolol 50 MG Tab PO SCH (20:05)
[2020-10-25] MEDS: Budesonide/Formoterol 160-4.5 MCG/Puff 6 GM Inhaler INH SCH (20:06)
[2020-10-25] MEDS: Pantoprazole 40 MG Vial IV SCH (20:06)
[2020-10-25] MEDS: atorvaSTATin 40 MG Tab PO SCH (20:06)
[2020-10-25] MEDS: traMADol 50 MG Tab PO PRN (22:09)
[2020-10-26] MEDS: Ciprofloxacin 0.3% Ophth Soln 2.5 ML Bottle EYEBOTH SCH ×4 (00:28→11:47)
[2020-10-26] MEDS: Acetaminophen 500 MG Tab PO PRN (02:07)
[2020-10-26] MEDS: Sodium Chloride 0.9% 1,000 ML IV SCH (02:11)
[2020-10-26 06:28] LABS: BLOOD UREA NITROGEN,BUN 7 mg/dL (7.0-18.0); CARBON DIOXIDE,CO2 24.5 mmol/L (21.0-32.0); CHLORIDE,CL 106 mmol/L (98-107); GLUCOSE RANDOM 100 mg/dL (74-106); POTASSIUM,K 3.4 mmol/L (3.5-5.1); SODIUM,NA 142 mmol/L (136-148)
[2020-10-26] MEDS: Venlafaxine 37.5 MG Tab PO SCH ×2 (06:35→14:34)
[2020-10-26] MEDS: Insulin Aspart 100 Units/ML 3 ML Pen SUBCUT SCH ×2 (07:35→11:15)
[2020-10-26] MEDS: Aspirin 81 MG Tab.EC PO SCH (08:59)
[2020-10-26] MEDS: Apixaban 5 MG Tab PO SCH (08:59)
--- NOTE | 2020-10-26 08:59 | PCM.PN ---
- General Info Date of Service: 10/26/20 Subjective Update: No complaints at bedside this AM. Tolerating oral diet. Has been up to chair and back to bed. - Patient Data Vitals - Most Recent: Last Vital Signs Temp 36.4 C 10/26/20 04:00 Pulse 62 10/26/20 07:53 Resp 16 10/26/20 07:53 BP 147/71 H 10/26/20 07:53 Pulse Ox 97 10/26/20 07:53 Weight - Most Recent: 92.079 kg I&O - Last 24 Hours: Intake & Output 10/25/20 10/26/20 10/26/20 22:59 06:59 14:59 Intake Total 1469 1450 Output Total 1350 1250 Balance 119 200 Lab Results Last 24 Hours: Laboratory Results - last 24 hr 10/25/20 10/25/20 10/25/20 Range/Units 06:38 12:22 17:30 WBC (4.0-11.0) K/uL RBC (4.50-5.90) M/uL Hgb (13.0-17.0) g/dL Hct (38.0-50.0) % MCV (80.0-98.0) fL MCH (27.0-32.0) pg MCHC (31.0-37.0) g/dL RDW Std Deviation (28.0-62.0) fl RDW Coeff of Alfonso (11.0-15.0) % Plt Count (150-400) K/uL MPV (7.40-12.00) fL Neut % (Auto) (48.0-80.0) % Lymph % (Auto) (16.0-40.0) % [place] % (Auto) (0.0-15.0) % Eos % (Auto) (0.0-7.0) % Baso % (Auto) (0.0-1.5) % Neut # (Auto) (1.4-5.7) K/uL Lymph # (Auto) (0.6-2.4) K/uL [place] # (Auto) (0.0-0.8) K/uL Eos # (Auto) (0.0-0.7) K/uL Baso # (Auto) (0.0-0.1) K/uL Nucleated RBC % /100WBC Nucleated RBCs # K/uL APTT (18.6-31.3) SEC Sodium (136-148) mmol/L Potassium (3.5-5.1) mmol/L Chloride (98-107) mmol/L Carbon Dioxide (21.0-32.0) mmol/L BUN (7.0-18.0) mg/dL Creatinine (0.8-1.3) mg/dL Est Cr Clr Drug Dosing mL/min Estimated GFR (MDRD) ml/min Glucose (74-106) mg/dL POC Glucose 113 H 140 H 122 H (60-110) mg/dL Calcium (8.5-10.1) mg/dL 10/26/20 10/26/20 10/26/20 Range/Units 05:30 05:30 05:30 WBC 5.08 (4.0-11.0) K/uL RBC 4.59 (4.50-5.90) M/uL Hgb 13.4 (13.0-17.0) g/dL Hct 39.6 (38.0-50.0) % MCV 86.3 (80.0-98.0) fL MCH 29.2 (27.0-32.0) pg MCHC 33.8 (31.0-37.0) g/dL RDW Std Deviation 41.8 (28.0-62.0) fl RDW Coeff of Alfonso 13 (11.0-15.0) % Plt Count 252 (150-400) K/uL MPV 9.70 (7.40-12.00) fL Neut % (Auto) 63.6 (48.0-80.0) % Lymph % (Auto) 24.0 (16.0-40.0) % [place] % (Auto) 7.9 (0.0-15.0) % Eos % (Auto) 3.9 (0.0-7.0) % Baso % (Auto) 0.6 (0.0-1.5) % Neut # (Auto) 3.2 (1.4-5.7) K/uL Lymph # (Auto) 1.2 (0.6-2.4) K/uL [place] # (Auto) 0.4 (0.0-0.8) K/uL Eos # (Auto) 0.2 (0.0-0.7) K/uL Baso # (Auto) 0.0 (0.0-0.1) K/uL Nucleated RBC % 0.0 /100WBC Nucleated RBCs # 0 K/uL APTT 33.0 H (18.6-31.3) SEC Sodium 142 (136-148) mmol/L Potassium 3.4 L (3.5-5.1) mmol/L Chloride 106 (98-107) mmol/L Carbon Dioxide 24.5 (21.0-32.0) mmol/L BUN 7 (7.0-18.0) mg/dL Creatinine 0.8 (0.8-1.3) mg/dL Est Cr Clr Drug Dosing 81.11 mL/min Estimated GFR (MDRD) > 60.0 ml/min Glucose 100 (74-106) mg/dL POC Glucose (60-110) mg/dL Calcium 8.4 L (8.5-10.1) mg/dL 10/26/20 Range/Units 06:33 WBC (4.0-11.0) K/uL RBC (4.50-5.90) M/uL Hgb (13.0-17.0) g/dL Hct (38.0-50.0) % MCV (80.0-98.0) fL MCH (27.0-32.0) pg MCHC (31.0-37.0) g/dL RDW Std Deviation (28.0-62.0) fl RDW Coeff of Alfonso (11.0-15.0) % Plt Count (150-400) K/uL MPV (7.40-12.00) fL Neut % (Auto) (48.0-80.0) % Lymph % (Auto) (16.0-40.0) % [place] % (Auto) (0.0-15.0) % Eos % (Auto) (0.0-7.0) % Baso % (Auto) (0.0-1.5) % Neut # (Auto) (1.4-5.7) K/uL Lymph # (Auto) (0.6-2.4) K/uL [place] # (Auto) (0.0-0.8) K/uL Eos # (Auto) (0.0-0.7) K/uL Baso # (Auto) (0.0-0.1) K/uL Nucleated RBC % /100WBC Nucleated RBCs # K/uL APTT (18.6-31.3) SEC Sodium (136-148) mmol/L Potassium (3.5-5.1) mmol/L Chloride (98-107) mmol/L Carbon Dioxide (21.0-32.0) mmol/L BUN (7.0-18.0) mg/dL Creatinine (0.8-1.3) mg/dL Est Cr Clr Drug Dosing mL/min Estimated GFR (MDRD) ml/min Glucose (74-106) mg/dL POC Glucose 93 (60-110) mg/dL Calcium (8.5-10.1) mg/dL Med Orders - Current: Current Medications Acetaminophen (Tylenol Extra Strength) 500 mg PO Q6H PRN PRN Reason: Pain Last Admin: 10/26/20 02:07 Dose: 500 mg Documented by: Albuterol/Ipratropium (Duoneb 3.0-0.5 Mg/3 Ml) 3 ml NEB Q4HRRT PRN PRN Reason: Shortness Of Breath/wheezing Amlodipine Besylate (Norvasc) 10 mg PO DAILY [facility] Last Admin: 10/25/20 09:45 Dose: 10 mg Documented by: Apixaban (Eliquis) 10 mg PO BID [facility] Last Admin: 10/25/20 20:06 Dose: 10 mg Documented by: Artificial Tears (Refresh Plus 0.5%) 1 each EYEBOTH BID [facility] Last Admin: 10/25/20 20:05 Dose: 1 each Documented by: Aspirin (Halfprin) 81 mg PO DAILY [facility] Last Admin: 10/25/20 09:45 Dose: 81 mg Documented by: Atenolol (Tenormin) 100 mg PO BEDTIME [facility] Last Admin: 10/25/20 20:05 Dose: 100 mg Documented by: Atorvastatin Calcium (Lipitor) 80 mg PO BEDTIME [facility] Last Admin: 10/25/20 20:06 Dose: 80 mg Documented by: Ciprofloxacin (Ciloxan 0.3% [facility] Soln) 1 ml EYEBOTH Q4HR [facility] Last Admin: 10/26/20 03:36 Dose: 1 drop Documented by: Dextrose/Water (Dextrose 50% In Water) 50 ml IV ASDIRECTED PRN PRN Reason: Hypoglycemia Docusate Sodium (Colace) 100 mg PO DAILY PRN PRN Reason: Constipation Last Admin: 10/25/20 17:32 Dose: 100 mg Documented by: Glucagon (Glucagen) 1 mg IM ASDIRECTED PRN PRN Reason: Hypoglycemia Sodium Chloride (Normal Saline) 1,000 mls @ 100 mls/hr IV CONTINUOUS [facility] Last Admin: 10/26/20 02:11 Dose: 100 mls/hr Documented by: Insulin Aspart (Novolog) 0 unit SUBCUT TIDAC [facility]; Protocol Last Admin: 10/26/20 07:35 Dose: Not Given Documented by: Melatonin (Melatonin) 3 mg PO BEDTIME PRN PRN Reason: Insomnia Last Admin: 10/24/20 21:40 Dose: 3 mg Documented by: Ondansetron HCl (Zofran Odt) 4 mg PO Q4H PRN PRN Reason: nausea, able to take PO Pantoprazole Sodium (Protonix Iv) 40 mg IV BEDTIME [facility] Last Admin: 10/25/20 20:06 Dose: 40 mg Documented by: Budesonide/Formoterol 160-4.5 Mcg/Puff 6 Gm Inhaler 2 each INH BEDTIME [facility] Last Admin: 10/25/20 20:06 Dose: Not Given Documented by: Potassium Chloride (Klor-Con M20) 40 meq PO ONETIME ONE Stop: 10/26/20 09:01 Sodium Chloride (Saline Flush) 10 ml FLUSH ASDIRECTED PRN PRN Reason: Keep Vein Open Last Admin: 10/22/20 14:14 Dose: 10 ml Documented by: Sodium Chloride (Saline Flush) 2.5 ml FLUSH ASDIRECTED PRN PRN Reason: Keep Vein Open Last Admin: 10/22/20 14:14 Dose: 2.5 ml Documented by: Tamsulosin HCl (Flomax) 0.4 mg PO WITHDINNER [facility] Last Admin: 10/25/20 17:32 Dose: 0.4 mg Documented by: Tramadol HCl (Ultram) 50 mg PO Q6H PRN PRN Reason: Pain Last Admin: 10/25/20 22:09 Dose: 50 mg Documented by: Venlafaxine HCl (Effexor) 18.75 mg PO TID [facility] Last Admin: 10/26/20 06:35 Dose: 18.75 mg Documented by: Discontinued Medications Heparin Sodium (Porcine) (Heparin Sodium) 5,000 units IVPUSH .BOLUS ONE; Protocol Stop: 10/22/20 18:33 Last Admin: 10/22/20 18:52 Dose: 5,000 units Documented by: Heparin Sodium (Porcine) (Heparin Sodium) 1,500 units IVPUSH ONETIME ONE Stop: 10/24/20 19:49 Last Admin: 10/24/20 20:29 Dose: 1,500 units Documented by: Sodium Chloride (Normal Saline) 1,000 mls @ 999 mls/hr IV .Bolus ONE Stop: 10/22/20 15:04 Last Admin: 10/22/20 14:14 Dose: 999 mls/hr Documented by: Heparin Sodium/Sodium Chloride (Heparin 25,000 Units In 1/2 Ns 500 Ml) 500 mls @ 1.842 mls/hr IV TITRATE [facility]; Protocol Last Admin: 10/25/20 03:45 Dose: 13 units/kg/hr, 23.941 mls/hr Documented by: Ibuprofen (Motrin) 400 mg PO Q6H PRN PRN Reason: Pain (mild 1-3) Iopamidol (Isovue Multipack-370 (76%)) 100 ml IVPUSH ONETIME STA Stop: 10/22/20 19:16 Last Admin: 10/22/20 19:16 Dose: 100 ml Documented by: Iopamidol (Isovue Multipack-370 (76%)) 100 ml IVPUSH ONETIME ONE Stop: 10/23/20 15:36 Last Admin: 10/23/20 15:36 Dose: 100 ml Documented by: Morphine Sulfate (Morphine) 4 mg IVPUSH ONETIME ONE Stop: 10/22/20 14:05 Last Admin: 10/22/20 14:13 Dose: 4 mg Documented by: Morphine Sulfate (Morphine) 4 mg IVPUSH ONETIME ONE Stop: 10/22/20 17:46 Last Admin: 10/22/20 17:50 Dose: 4 mg Documented by: Morphine Sulfate (Morphine) 1 mg IVPUSH Q2H PRN PRN Reason: Pain (severe 7-10) Stop: 10/23/20 19:22 Morphine Sulfate (Morphine) 1 mg IVPUSH Q2H PRN PRN Reason: Pain (severe 7-10) Stop: 10/23/20 19:22 Last Admin: 10/23/20 15:45 Dose: 1 mg Documented by: Pantoprazole Sodium (Protonix Iv) 40 mg IV Q24H [facility] Last Admin: 10/22/20 23:20 Dose: Not Given Documented by: Venlafaxine 25 Mg 25 each PO BID [facility] Last Admin: 10/25/20 10:37 Dose: Not Given Documented by: Potassium Chloride (Klor-Con M20) 40 meq PO ONETIME ONE Stop: 10/24/20 07:50 Last Admin: 10/24/20 09:58 Dose: 40 meq Documented by: - Exam General: Alert, Oriented, Cooperative, No Acute Distress Lungs: Clear to Auscultation, Normal Respiratory Effort Cardiovascular: Regular Rate, Regular Rhythm GI/Abdominal Exam: Normal Bowel Sounds, Soft, Non-Tender, No Distention Extremities: Normal Inspection, No Pedal Edema Sepsis Event Note - Evaluation Sepsis Screening Result: No Definite Risk - Focused Exam Vital Signs: Vital Signs Temp Pulse Resp BP Pulse Ox 10/26/20 07:53 62 16 147/71 H 97 10/26/20 04:00 36.4 C 61 18 135/80 94 L 10/25/20 23:48 36.3 C 63 16 128/67 94 L - Problem List & Annotations (1) Pulmonary embolism SNOMED Code(s): 87609483 Code(s): I26.99 - OTHER PULMONARY EMBOLISM WITHOUT ACUTE COR PULMONALE Status: Acute Current Visit: Yes (2) DM type 2 (diabetes mellitus, type 2) SNOMED Code(s): 60700624 Code(s): E11.9 - TYPE 2 DIABETES MELLITUS WITHOUT COMPLICATIONS Status: Acute Current Visit: Yes (3) HLD (hyperlipidemia) SNOMED Code(s): 54415516 Code(s): E78.5 - HYPERLIPIDEMIA, UNSPECIFIED Status: Acute Current Visit: Yes (4) HTN (hypertension) SNOMED Code(s): 23183001 Code(s): I10 - ESSENTIAL (PRIMARY) HYPERTENSION Status: Acute Current Visit: Yes (5) Anxiety SNOMED Code(s): 83692374 Code(s): F41.9 - ANXIETY DISORDER, UNSPECIFIED Status: Acute Current Visit: Yes (6) Depression SNOMED Code(s): 68241485 Code(s): F32.9 - MAJOR DEPRESSIVE DISORDER, SINGLE EPISODE, UNSPECIFIED Sta tus: Acute Current Visit: Yes - Problem List Review Problem List Initiated/Reviewed/Updated: Yes - My Orders Last 24 Hours: My Active Orders 10/26/20 09:00 Potassium Chloride [Klor-Con M20] 40 meq PO ONETIME ONE - Plan Plan:: Assessment and Plan: 1. Pulmonary embolism: - Patient on room air. Continue Eliquis. 2. S/P right rotator cuff repair POD#12: - Patient wearing sling. Continue PT. Follow-up with orthopedic surgeon as s cheduled. 3. Generalized weakness: - PT to evaluate today. 4. DM type 2: - Continue SSI and TIDAC accu-checks. 5. HTN: - Currently on amlodipine/atenolol. - HCTZ/lisinopril was held on admission. 6. Conjunctivitis : start ciprofloxacin eye drops both eyes 7. Past medical history of CAD s/p PCI, HLD, depression and anxiety: - Continue home medications.
[2020-10-26] MEDS ORDERED: Potassium Chloride 20 MEQ Tab.ER PO ONE (09:00)
[2020-10-26] MEDS: traMADol 50 MG Tab PO PRN ×2 (09:00→14:34)
[2020-10-26] MEDS: Carboxymethylcellulose Sodium 0.5% Ophth Soln 0.4 ML UD Box of 30 EYEBOTH SCH (09:01)
[2020-10-26] MEDS: amLODIPine 5 MG Tab PO SCH (09:02)
--- NOTE | 2020-10-26 10:43 | PCM.DCSUM1 ---
Discharge Summary - Hospital Course Free Text/Narrative:: 74-year-old male with PMH of CAD s/p stent, DM type 2, HLD, HTN, anxiety and depression admitted for acute hypoxic respiratory failure secondary to pulmonary embolism. He is s/p right rotator cuff surgery which was done [facility] [place] on [facility]14/[facility]. Patient reports being mostly non-ambulatory since his surgery and fell off his cough and estimates he was laying down for about 4- [address] angio showed PE in RUL and RLL. Lower extremity ultrasound negative for DVT. X-rays of bilateral femur, wrist and CXR were unremarkable. CT angio of right upper extremity was negative for DVT. Ultrasound of left upper extremity was unremarkable. Patient was started on heparin drip and then transitioned to Eliquis. Patient was successfully weaned to room air. He was noted to have elevated CPK on admission which was trended and improved. PT was consulted and patient was okay for discharge home. He will be staying with a friend who can assist him. Home health referral was placed for PT. Patient's home medications were resumed. He as given a script for Eliquis and will complete 7 days of 10 mg BID and then start 5 mg BID thereafter. He was also given a script for ciprofloxacin drops for bacterial conjunctivitis. Advised to follow-up with his PCP on discharge. He also reports having an appointment to follow-up with his orthopedic surgeon on 10/27/20 in [place], [place]. - Discharge Data Discharge Date: 10/26/20 Discharge Disposition: Home, W Home Health Agency 06 Condition: Stable - Referral to Home Health Date of Face to Face Encounter: 10/26/20 Reason for Homebound Status: Patient is unsteady when walking and a fall risk, needuing to utilize a cane to ambulate safely. Weakness and deconditioning due to hospitalization. Primary Care Physician: Vasu Yu NP Skilled Need: Physical therapy: strengthening due to weakness from recent hospitalization, deconditioning, gait instablility and high fall risk. - Discharge Diagnosis/Problem(s) (1) Pulmonary embolism SNOMED Code(s): 86170521 ICD Code: I26.99 - OTHER PULMONARY EMBOLISM WITHOUT ACUTE COR PULMONALE Status: Acute Current Visit: Yes (2) DM type 2 (diabetes mellitus, type 2) SNOMED Code(s): 61107993 ICD Code: E11.9 - TYPE 2 DIABETES MELLITUS WITHOUT COMPLICATIONS Status: Acute Current Visit: Yes (3) HLD (hyperlipidemia) SNOMED Code(s): 88546101 ICD Code: E78.5 - HYPERLIPIDEMIA, UNSPECIFIED Status: Acute Current Visit: Yes (4) HTN (hypertension) SNOMED Code(s): 28061242 ICD Code: I10 - ESSENTIAL (PRIMARY) HYPERTENSION Status: Acute Current Visit: Yes (5) Anxiety SNOMED Code(s): 02648069 ICD Code: F41.9 - ANXIETY DISORDER, UNSPECIFIED Status: Acute Current Visit: Yes (6) Depression SNOMED Code(s): 04050887 ICD Code: F32.9 - MAJOR DEPRESSIVE DISORDER, SINGLE EPISODE, UNSPECIFIED Status: Acute Current Visit: Yes - Patient Summary/Data Consults: Consultations 10/22/20 19:41 Consult to Physical Therapy [PT Evaluation and Treatment] [CONS] Routine - Patient Instructions Diet: Diabetic Diet Activity: As Tolerated Notify Provider of: Fever, Increased Pain, Swelling and Redness, Drainage, Nausea and/or Vomiting - Discharge Plan *PRESCRIPTION DRUG MONITORING PROGRAM REVIEWED*: Not Applicable *COPY OF PRESCRIPTION DRUG MONITORING REPORT IN PATIENT SHELBI: Not Applicable Prescriptions/Med Rec: Ciprofloxacin [Ciloxan 0.3% Ophth Soln] 1 ml EYEBOTH Q4HR 3 Days #1 bottle Apixaban [Eliquis] 5 mg PO BID 30 Days #63 tablet Home Medications: Home Meds Aspirin [Adult Low Dose Aspirin EC] 81 mg PO DAILY 08/10/16 [History] Gabapentin [Neurontin] 400 mg PO TID 08/10/16 [History] Multivitamin [Multivitamins] 1 cap PO DAILY 08/10/16 [History] Pantoprazole Sodium 40 mg PO DAILY 08/10/16 [History] Zolpidem Tartrate 5 mg PO BEDTIME PRN 08/10/16 [History] amLODIPine Besylate [Amlodipine Besylate] 10 mg PO DAILY 08/10/16 [History] atenoloL [Atenolol] 100 mg PO BEDTIME 08/10/16 [History] atorvaSTATin Calcium [Atorvastatin Calcium] 80 mg PO BEDTIME 08/10/16 [History] Nitroglycerin [Nitrostat] 0.4 mg SL Q5M PRN tab.sl 12/01/18 [Rx] Alendronate Sodium [Fosamax] 70 mg PO WEEKLY 10/23/20 [History] Ascorbic Acid [C-500] 500 mg PO DAILY 10/23/20 [History] Budesonide/Formoterol Fumarate [Budesonide-Formoterol 160-4.5] 2 inh IH BEDTIME 10/23/20 [History] Cetirizine HCl 10 mg PO DAILY 10/23/20 [History] Chlorthalidone 25 mg PO DAILY 10/23/20 [History] Cyclobenzaprine [Flexeril] 10 mg PO TID PRN 10/23/20 [History] Ergocalciferol (Vitamin D2) [Vitamin D2] 10 mcg PO DAILY 10/23/20 [History] Ezetimibe 10 mg PO BEDTIME 10/23/20 [History] Losartan [Cozaar] 25 mg PO DAILY 10/23/20 [History] Potassium Chloride [Klor-Con 10] 30 meq PO BIDMEALS 10/23/20 [History] Sildenafil [Viagra] 50 mg PO .ONE HOUR PRIOR PRN 10/23/20 [History] Tamsulosin [Flomax] 0.4 mg PO WITHDINNER 10/23/20 [History] Testosterone [Androderm] 4 mg TD Q24H 10/23/20 [History] Venlafaxine [Effexor] 25 mg PO BID 10/23/20 [History] metFORMIN [Glucophage] 250 mg PO BIDMEALS 10/23/20 [History] traMADol [Ultram] 50 mg PO BID PRN 10/23/20 [History] Apixaban [Eliquis] 5 mg PO BID 30 Days #63 tablet 10/26/20 [Rx] Ciprofloxacin [Ciloxan 0.3% Ophth Soln] 1 ml EYEBOTH Q4HR 3 Days #1 bottle 10/26/20 [Rx] Oxygen Therapy Mode: Room Air Patient Handouts: Pulmonary Embolism, Ciprofloxacin tablets, Apixaban oral tablets Referrals: Vasu Yu NP [Primary Care Provider] - 11/04/20 3:00 pm - Discharge Summary/Plan Comment DC Time >30 min.: No - Patient Data Vitals - Most Recent: Last Vital Signs Temp 36.4 C 10/26/20 04:00 Pulse 62 10/26/20 07:53 Resp 16 10/26/20 07:53 BP 140/70 10/26/20 09:02 Pulse Ox 97 10/26/20 07:53 Weight - Most Recent: 92.079 kg I&O - Last 24 hours: Intake & Output 10/25/20 10/26/20 10/26/20 22:59 06:59 14:59 Intake Total 1469 1450 237 Output Total 1350 1250 Balance 119 200 237 Lab Results - Last 24 hrs: Laboratory Results - last 24 hr 10/25/20 10/25/20 10/25/20 Range/Units 06:38 12:22 17:30 WBC (4.0-11.0) K/uL RBC (4.50-5.90) M/uL Hgb (13.0-17.0) g/dL Hct (38.0-50.0) % MCV (80.0-98.0) fL MCH (27.0-32.0) pg MCHC (31.0-37.0) g/dL RDW Std Deviation (28.0-62.0) fl RDW Coeff of Alfonso (11.0-15.0) % Plt Count (150-400) K/uL MPV (7.40-12.00) fL Neut % (Auto) (48.0-80.0) % Lymph % (Auto) (16.0-40.0) % Med[place] % (Auto) (0.0-15.0) % Eos % (Auto) (0.0-7.0) % Baso % (Auto) (0.0-1.5) % Neut # (Auto) (1.4-5.7) K/uL Lymph # (Auto) (0.6-2.4) K/uL Med[place] # (Auto) (0.0-0.8) K/uL Eos # (Auto) (0.0-0.7) K/uL Baso # (Auto) (0.0-0.1) K/uL Nucleated RBC % /100WBC Nucleated RBCs # K/uL APTT (18.6-31.3) SEC Sodium (136-148) mmol/L Potassium (3.5-5.1) mmol/L Chloride (98-107) mmol/L Carbon Dioxide (21.0-32.0) mmol/L BUN (7.0-18.0) mg/dL Creatinine (0.8-1.3) mg/dL Est Cr Clr Drug Dosing mL/min Estimated GFR (MDRD) ml/min Glucose (74-106) mg/dL POC Glucose 113 H 140 H 122 H (60-110) mg/dL Calcium (8.5-10.1) mg/dL 10/26/20 10/26/20 10/26/20 Range/Units 05:30 05:30 05:30 WBC 5.08 (4.0-11.0) K/uL RBC 4.59 (4.50-5.90) M/uL Hgb 13.4 (13.0-17.0) g/dL Hct 39.6 (38.0-50.0) % MCV 86.3 (80.0-98.0) fL MCH 29.2 (27.0-32.0) pg MCHC 33.8 (31.0-37.0) g/dL RDW Std Deviation 41.8 (28.0-62.0) fl RDW Coeff of Alfonso 13 (11.0-15.0) % Plt Count 252 (150-400) K/uL MPV 9.70 (7.40-12.00) fL Neut % (Auto) 63.6 (48.0-80.0) % Lymph % (Auto) 24.0 (16.0-40.0) % Med[place] % (Auto) 7.9 (0.0-15.0) % Eos % (Auto) 3.9 (0.0-7.0) % Baso % (Auto) 0.6 (0.0-1.5) % Neut # (Auto) 3.2 (1.4-5.7) K/uL Lymph # (Auto) 1.2 (0.6-2.4) K/uL Med[place] # (Auto) 0.4 (0.0-0.8) K/uL Eos # (Auto) 0.2 (0.0-0.7) K/uL Baso # (Auto) 0.0 (0.0-0.1) K/uL Nucleated RBC % 0.0 /100WBC Nucleated RBCs # 0 K/uL APTT 33.0 H (18.6-31.3) SEC Sodium 142 (136-148) mmol/L Potassium 3.4 L (3.5-5.1) mmol/L Chloride 106 (98-107) mmol/L Carbon Dioxide 24.5 (21.0-32.0) mmol/L BUN 7 (7.0-18.0) mg/dL Creatinine 0.8 (0.8-1.3) mg/dL Est Cr Clr Drug Dosing 81.11 mL/min Estimated GFR (MDRD) > 60.0 ml/min Glucose 100 (74-106) mg/dL POC Glucose (60-110) mg/dL Calcium 8.4 L (8.5-10.1) mg/dL 10/26/20 Range/Units 06:33 WBC (4.0-11.0) K/uL RBC (4.50-5.90) M/uL Hgb (13.0-17.0) g/dL Hct (38.0-50.0) % MCV (80.0-98.0) fL MCH (27.0-32.0) pg MCHC (31.0-37.0) g/dL RDW Std Deviation (28.0-62.0) fl RDW Coeff of Alfonso (11.0-15.0) % Plt Count (150-400) K/uL MPV (7.40-12.00) fL Neut % (Auto) (48.0-80.0) % Lymph % (Auto) (16.0-40.0) % [place] % (Auto) (0.0-15.0) % Eos % (Auto) (0.0-7.0) % Baso % (Auto) (0.0-1.5) % Neut # (Auto) (1.4-5.7) K/uL Lymph # (Auto) (0.6-2.4) K/uL [place] # (Auto) (0.0-0.8) K/uL Eos # (Auto) (0.0-0.7) K/uL Baso # (Auto) (0.0-0.1) K/uL Nucleated RBC % /100WBC Nucleated RBCs # K/uL APTT (18.6-31.3) SEC Sodium (136-148) mmol/L Potassium (3.5-5.1) mmol/L Chloride (98-107) mmol/L Carbon Dioxide (21.0-32.0) mmol/L BUN (7.0-18.0) mg/dL Creatinine (0.8-1.3) mg/dL Est Cr Clr Drug Dosing mL/min Estimated GFR (MDRD) ml/min Glucose (74-106) mg/dL POC Glucose 93 (60-110) mg/dL Calcium (8.5-10.1) mg/dL Med Orders - Current: Current Medications Acetaminophen (Tylenol Extra Strength) 500 mg PO Q6H PRN PRN Reason: Pain Last Admin: 10/26/20 02:07 Dose: 500 mg Documented by: Albuterol/Ipratropium (Duoneb 3.0-0.5 Mg/3 Ml) 3 ml NEB Q4HRRT PRN PRN Reason: Shortness Of Breath/wheezing Amlodipine Besylate (Norvasc) 10 mg PO DAILY [facility] Last Admin: 10/26/20 09:02 Dose: 10 mg Documented by: Apixaban (Eliquis) 10 mg PO BID [facility] [place] Last Admin: 10/26/20 08:59 Dose: 10 mg Documented by: Artificial Tears (Refresh Plus 0.5%) 1 each EYEBOTH BID [facility] [place] Last Admin: 10/26/20 09:01 Dose: 1 each Documented by: Aspirin (Halfprin) 81 mg PO DAILY [facility] [place] Last Admin: 10/26/20 08:59 Dose: 81 mg Documented by: Atenolol (Tenormin) 100 mg PO BEDTIME [facility] [place] Last Admin: 10/25/20 20:05 Dose: 100 mg Documented by: Atorvastatin Calcium (Lipitor) 80 mg PO BEDTIME [facility] [place] Last Admin: 10/25/20 20:06 Dose: 80 mg Documented by: Ciprofloxacin (Ciloxan 0.3% Oph Soln) 1 ml EYEBOTH Q4HR [facility] [place] Last Admin: 10/26/20 08:58 Dose: 1 drop Documented by: Dextrose/Water (Dextrose 50% In Water) 50 ml IV ASDIRECTED PRN PRN Reason: Hypoglycemia Docusate Sodium (Colace) 100 mg PO DAILY PRN PRN Reason: Constipation Last Admin: 10/25/20 17:32 Dose: 100 mg Documented by: Glucagon (Glucagen) 1 mg IM ASDIRECTED PRN PRN Reason: Hypoglycemia Sodium Chloride (Normal Saline) 1,000 mls @ 100 mls/hr IV CONTINUOUS [facility] [place] Last Admin: 10/26/20 02:11 Dose: 100 mls/hr Documented by: Insulin Aspart (Novolog) 0 unit SUBCUT TIDAC [facility]; Protocol Last Admin: 10/26/20 07:35 Dose: Not Given Documented by: Melatonin (Melatonin) 3 mg PO BEDTIME PRN PRN Reason: Insomnia Last Admin: 10/24/20 21:40 Dose: 3 mg Documented by: Ondansetron HCl (Zofran Odt) 4 mg PO Q4H PRN PRN Reason: nausea, able to take PO Pantoprazole Sodium (Protonix Iv) 40 mg IV BEDTIME [facility] [place] Last Admin: 10/25/20 20:06 Dose: 40 mg Documented by: Budesonide/Formoterol 160-4.5 Mcg/Puff 6 Gm Inhaler 2 each INH BEDTIME [facility] [place] Last Admin: 10/25/20 20:06 Dose: Not Given Documented by: Sodium Chloride (Saline Flush) 10 ml FLUSH ASDIRECTED PRN PRN Reason: Keep Vein Open Last Admin: 10/22/20 14:14 Dose: 10 ml Documented by: Sodium Chloride (Saline Flush) 2.5 ml FLUSH ASDIRECTED PRN PRN Reason: Keep Vein Open Last Admin: 10/22/20 14:14 Dose: 2.5 ml Documented by: Tamsulosin HCl (Flomax) 0.4 mg PO WITHDINNER [facility] [place] Last Admin: 10/25/20 17:32 Dose: 0.4 mg Documented by: Tramadol HCl (Ultram) 50 mg PO Q6H PRN PRN Reason: Pain Last Admin: 10/26/20 09:00 Dose: 50 mg Documented by: Venlafaxine HCl (Effexor) 18.75 mg PO TID [facility] [place] Last Admin: 10/26/20 06:35 Dose: 18.75 mg Documented by: Discontinued Medications Heparin Sodium (Porcine) (Heparin Sodium) 5,000 units IVPUSH .BOLUS ONE; Protocol Stop: 10/22/20 18:33 Last Admin: 10/22/20 18:52 Dose: 5,000 units Documented by: Heparin Sodium (Porcine) (Heparin Sodium) 1,500 units IVPUSH ONETIME ONE Stop: 10/24/20 19:49 Last Admin: 10/24/20 20:29 Dose: 1,500 units Documented by: Sodium Chloride (Normal Saline) 1,000 mls @ 999 mls/hr IV .Bolus ONE Stop: 10/22/20 15:04 Last Admin: 10/22/20 14:14 Dose: 999 mls/hr Documented by: Heparin Sodium/Sodium Chloride (Heparin 25,000 Units In 1/2 Ns 500 Ml) 500 mls @ 1.842 mls/hr IV TITRATE JOSTIN; Protocol Last Admin: 10/25/20 03:45 Dose: 13 units/kg/hr, 23.941 mls/hr Documented by: Ibuprofen (Motrin) 400 mg PO Q6H PRN PRN Reason: Pain (mild 1-3) Iopamidol (Isovue Multipack-370 (76%)) 100 ml IVPUSH ONETIME STA Stop: 10/22/20 19:16 Last Admin: 10/22/20 19:16 Dose: 100 ml Documented by: Iopamidol (Isovue Multipack-370 (76%)) 100 ml IVPUSH ONETIME ONE Stop: 10/23/20 15:36 Last Admin: 10/23/20 15:36 Dose: 100 ml Documented by: Morphine Sulfate (Morphine) 4 mg IVPUSH ONETIME ONE Stop: 10/22/20 14:05 Last Admin: 10/22/20 14:13 Dose: 4 mg Documented by: Morphine Sulfate (Morphine) 4 mg IVPUSH ONETIME ONE Stop: 10/22/20 17:46 Last Admin: 10/22/20 17:50 Dose: 4 mg Documented by: Morphine Sulfate (Morphine) 1 mg IVPUSH Q2H PRN PRN Reason: Pain (severe 7-10) Stop: 10/23/20 19:22 Morphine Sulfate (Morphine) 1 mg IVPUSH Q2H PRN PRN Reason: Pain (severe 7-10) Stop: 10/23/20 19:22 Last Admin: 10/23/20 15:45 Dose: 1 mg Documented by: Pantoprazole Sodium (Protonix Iv) 40 mg IV Q24H [facility] [place] Last Admin: 10/22/20 23:20 Dose: Not Given Documented by: Venlafaxine 25 Mg 25 each PO BID [facility] [place] Last Admin: 10/25/20 10:37 Dose: Not Given Documented by: Potassium Chloride (Klor-Con M20) 40 meq PO ONETIME ONE Stop: 10/24/20 07:50 Last Admin: 10/24/20 09:58 Dose: 40 meq Documented by: Potassium Chloride (Klor-Con M20) 40 meq PO ONETIME ONE Stop: 10/26/20 09:01 Last Admin: 10/26/20 09:00 Dose: 40 meq Documented by:
[2020-10-26 11:31] VITALS: BP 139/63; PULSE 67
== END 2020-10-26 14:40 | disposition home health service (06) | DRG 175 ==
LOC: MW.ED 13:42 → MW.MS 18:51
PROVIDERS: ADMIT Student in an Organized Health Care Education/Training Program; ATTEND Student in an Organized Health Care Education/Training Program
DX: I26.99 Other pulmonary embolism without acute cor pulmonale (principal); R09.02 Hypoxemia; M25.532 Pain in left wrist; M25.531 Pain in right wrist; M79.652 Pain in left thigh; M79.651 Pain in right thigh; J96.01 Acute respiratory failure with hypoxia; Z74.1 Need for assistance with personal care; E11.9 Type 2 diabetes mellitus without complications; J45.909 Unspecified asthma, uncomplicated; H91.93 Unspecified hearing loss, bilateral; E78.00 Pure hypercholesterolemia, unspecified; E78.5 Hyperlipidemia, unspecified; I10 Essential (primary) hypertension; K21.9 Gastro-esophageal reflux disease without esophagitis; N40.0 Benign prostatic hyperplasia without lower urinary tract symptoms; M19.90 Unspecified osteoarthritis, unspecified site; F41.9 Anxiety disorder, unspecified; F32.9 Major depressive disorder, single episode, unspecified; I25.10 Atherosclerotic heart disease of native coronary artery without angina pectoris; Z20.822 Contact with and (suspected) exposure to COVID-19; H10.9 Unspecified conjunctivitis; Z79.82 Long term (current) use of aspirin; Z79.899 Other long term (current) drug therapy; Z79.01 Long term (current) use of anticoagulants; Z98.890 Other specified postprocedural states; Z91.013 Allergy to seafood; Z91.018 Allergy to other foods; I25.2 Old myocardial infarction; Z86.718 Personal history of other venous thrombosis and embolism; Z91.048 Other nonmedicinal substance allergy status; Z79.02 Long term (current) use of antithrombotics/antiplatelets; Z95.5 Presence of coronary angioplasty implant and graft; Z79.84 Long term (current) use of oral hypoglycemic drugs
CPT/HCPCS: 36415; 71045; 71275; 73110; 73552; 80053; 81003; 82550; 83605; 83735; 83880; 84100; 84484; 85025; 87635; 93005; 93970; 96374; 96376; 99285; J2270 ×2; J7030; 73030-26-RT; 73030-RT; 73206-26-RT; 73206-RT; 80048; 82962; 85730; 93010; 93971-26-LT; 93971-LT; 96375; 97162-GP; 97530-GP; 99223; 99231; 99232; 99233; 99238; 99291; A9270-GY; C9113; J1644; Q9967; U0002

== ENCOUNTER 2020-11-10 13:39 | Emergency (ER) | payer OTHER, MEDICARE ==
--- NOTE | 2020-11-10 14:56 | PCM.EKG ---
#1 Interpretation EKG Date: 11/10/20 Time: 14:50 Rhythm: NSR Rate (Beats/Min): 68 ST-T: Normal
--- NOTE | 2020-11-10 15:18 | EDM.PDOC ---
ED HPI GENERAL MEDICAL PROBLEM - General Chief Complaint: General Stated Complaint: RIGHT HAND SWOLLEN Time Seen by Provider: 11/10/20 13:42 Source of Information: Reports: Patient History Limitations: Reports: No Limitations - History of Present Illness INITIAL COMMENTS - FREE TEXT/NARRATIVE: 74-year-old presents reporting swelling in his right hand with increased pain in his right wrist and right upper arm. He is status post right shoulder rotator cuff surgery by Dr. Hughes at [facility] in [place] on 10/14/2019. He was discharged with oxycodone and tramadol for pain the [place]. [place] After the surgery he stated he laid on the couch until 10/18/2019. Then, he reported he slid off the couch onto the floor and laid there for 6 hours until he was able to work his way back to the couch. After the fall he noted wrist and bilateral femur pain. He stated he was too weak to get up. He denied hitting his head, loss of consciousness, neck pain, chest pain, shortness of breath, dysuria. A Home health nurse found him weak and in pain and had him brought in to the ER on 10/22/20. In the ER he was alert and orientated and his lab work was pretty much normal. He was hypoxic however and a CT revealed pulmonary embolism. He was admitted for acute hypoxic respiratory failure secondary to pulmonary emboli in the right upper and lower lobe, generalized weakness, elevated CPK. Patient was discharged on 10/26/2020 on Eliquis twice daily, physical therapy for deconditioning, home health for unsteady when walking with a fall risk, weakness and deconditioning due to hospitalization. A good Evangelical took him in and he is currently living in her home under her watchful eye until he recovers. Today, she brought him in because he was more sleepy than usual not as chatty. He was complaining of some swelling in his right hand and pain in his right shoulder and wrist. On arrival, the patient states that he has been taking tramadol every 4 hours and last took one at noon. He states that his right shoulder and wrist have been hurting and his right hand is a little swollen although not like it was when he was in the hospital previously. He states that he has been eating and drinking fine. Denies dysuria, abdominal pain, chest pain, shortness of breath, nausea, vomiting, diarrhea, constipation. Alert, oriented, witty but does fall asleep as soon as conversation is over. Of note, part of his admission work-up, the patient had an x-ray of his right shoulder, right wrist, a CTA right upper extremity and a venous Doppler ultrasound right upper extremity all of which were within normal limits. - Related Data Allergies Allergy/AdvReac Type Severity Reaction Status Date / Time Fish Containing Products Allergy Nausea and Verified 11/10/20 14:13 Vomiting shellfish derived Allergy Cannot Verified 11/10/20 14:13 Remember dust Allergy Sneezing Uncoded 11/10/20 14:13 Home Meds: Home Meds Aspirin [Adult Low Dose Aspirin EC] 81 mg PO DAILY 08/10/16 [History] Gabapentin [Neurontin] 400 mg PO TID 08/10/16 [History] Multivitamin [Multivitamins] 1 cap PO DAILY 08/10/16 [History] Pantoprazole Sodium 40 mg PO DAILY 08/10/16 [History] Zolpidem Tartrate 5 mg PO BEDTIME PRN 08/10/16 [History] amLODIPine Besylate [Amlodipine Besylate] 10 mg PO DAILY 08/10/16 [History] atenoloL [Atenolol] 100 mg PO BEDTIME 08/10/16 [History] atorvaSTATin Calcium [Atorvastatin Calcium] 80 mg PO BEDTIME 08/10/16 [History] Nitroglycerin [Nitrostat] 0.4 mg SL Q5M PRN tab.sl 12/01/18 [Rx] Alendronate Sodium [Fosamax] 70 mg PO WEEKLY 10/23/20 [History] Ascorbic Acid [C-500] 500 mg PO DAILY 10/23/20 [History] Budesonide/Formoterol Fumarate [Budesonide-Formoterol 160-4.5] 2 inh IH BEDTIME 10/23/20 [History] Cetirizine HCl 10 mg PO DAILY 10/23/20 [History] Chlorthalidone 25 mg PO DAILY 10/23/20 [History] Cyclobenzaprine [Flexeril] 10 mg PO TID PRN 10/23/20 [History] Ergocalciferol (Vitamin D2) [Vitamin D2] 10 mcg PO DAILY 10/23/20 [History] Ezetimibe 10 mg PO BEDTIME 10/23/20 [History] Losartan [Cozaar] 25 mg PO DAILY 10/23/20 [History] Potassium Chloride [Klor-Con 10] 30 meq PO BIDMEALS 10/23/20 [History] Sildenafil [Viagra] 50 mg PO .ONE HOUR PRIOR PRN 10/23/20 [History] Tamsulosin [Flomax] 0.4 mg PO WITHDINNER 10/23/20 [History] Testosterone [Androderm] 4 mg TD Q24H 10/23/20 [History] Venlafaxine [Effexor] 25 mg PO BID 10/23/20 [History] metFORMIN [Glucophage] 250 mg PO BIDMEALS 10/23/20 [History] traMADol [Ultram] 50 mg PO BID PRN 10/23/20 [History] Apixaban [Eliquis] 5 mg PO BID 30 Days #63 tablet 10/26/20 [Rx] Ciprofloxacin [Ciloxan 0.3% Ophth Soln] 1 ml EYEBOTH Q4HR 3 Days #1 bottle 10/26/20 [Rx] Past Medical History HEENT History: Reports: Allergic Rhinitis, Hard of Hearing Other HEENT History: wears glasses, has upper denture, has hearing aides but doesn't wear them Cardiovascular History: Reports: Blood Clots/VTE/DVT, High Cholesterol, Hypertension, [place] Other Cardiovascular History: X 3 stents placed in 2018 Respiratory History: Reports: Asthma Other Respiratory History: possible asthma, but mostly allergies that cause breathing problems Gastrointestinal History: Reports: GERD Genitourinary History: Reports: BPH Musculoskeletal History: Reports: None Other Musculoskeletal History: hx of fx bilateral legs and ribs Neurological History: Reports: Other (See Below) Other Neuro History: degenerative disc disease Psychiatric History: Reports: Anxiety, Depression Endocrine/Metabolic History: Reports: Diabetes, Type II Hematologic History: Reports: None Immunologic History: Reports: None Oncologic (Cancer) History: Reports: None Dermatologic History: Reports: None - Infectious Disease History Infectious Disease History: Reports: Chicken Pox, Measles, Mumps, Rubella - Past Surgical History Head Surgeries/Procedures: Reports: None HEENT Surgical History: Reports: None Cardiovascular Surgical History: Reports: Coronary Artery Stent Respiratory Surgical History: Reports: None GI Surgical History: Reports: Colonoscopy, EGD Male Surgical History: Reports: None Endocrine Surgical History: Reports: None Neurological Surgical History: Reports: None, Other (See Below) Other Neurological Surgeries/Procedures: Back surgery of some kind Musculoskeletal Surgical History: Reports: Other (See Below) Other Musculoskeletal Surgeries/Procedures:: R Ankle replacement Oncologic Surgical History: Reports: None Dermatological Surgical History: Reports: None Social & Family History - Family History Family Medical History: No Pertinent Family History - Tobacco Use Tobacco Use Status *Q: Never Tobacco User - Caffeine Use Caffeine Use: Reports: None - Recreational Drug Use Recreational Drug Use: No ED ROS GENERAL - Review of Systems Review Of Systems: Comprehensive ROS is negative, except as noted in HPI. ED EXAM, GENERAL - Physical Exam Exam: See Below Exam Limited By: No Limitations General Appearance: Alert, No Apparent Distress Ears: Normal External Exam Nose: Normal Inspection Throat/Mouth: Normal Inspection Head: Atraumatic, Normocephalic Neck: Normal Inspection Respiratory/Chest: No Respiratory Distress, Lungs Clear, Normal Breath Sounds Cardiovascular: Normal Peripheral Pulses, Regular Rate, Rhythm GI/Abdominal: Soft, Non-Tender, No Distention Back Exam: Normal Inspection Extremities: Other (Right hand with mild swelling. Full range of motion of all digits. CMS intact to all digits. Pleth to each digit strong. Shoulder immobilizer on. No swelling of the arm.) Neurological: Alert, Oriented, Normal Cognition Psychiatric: Normal Affect, Normal Mood Skin Exam: Warm, Dry, Intact, Normal Color, No Rash Lymphatic: No Adenopathy Course - Vital Signs Last Recorded V/S: Last Vital Signs Temp 36.3 C 11/10/20 14:14 Pulse 65 11/10/20 14:14 Resp 16 11/10/20 14:14 BP 123/66 11/10/20 14:14 Pulse Ox 94 L 11/10/20 14:14 - Orders/Labs/Meds Orders: Active Orders 24 hr Category Date Time Status EKG 12 Lead [EKG Documentation Completion] [RC] STAT Care 11/10/20 14:42 Active Wrist 2V Rt [CR] Stat Exams 11/10/20 16:19 Stop Req UA W/JERICA RFLX IF INDICATED [URIN] Stat Lab 11/10/20 14:41 Ordered Labs: Laboratory Tests 11/10/20 11/10/20 Range/Units 15:08 15:08 WBC 8.61 (4.0-11.0) K/uL RBC 4.64 (4.50-5.90) M/uL Hgb 13.3 (13.0-17.0) g/dL Hct 40.1 (38.0-50.0) % MCV 86.4 (80.0-98.0) fL MCH 28.7 (27.0-32.0) pg MCHC 33.2 (31.0-37.0) g/dL RDW Std Deviation 43.7 (28.0-62.0) fl RDW Coeff of Alfonso 14 (11.0-15.0) % Plt Count 268 (150-400) K/uL MPV 9.60 (7.40-12.00) fL Neut % (Auto) 65.7 (48.0-80.0) % Lymph % (Auto) 18.5 (16.0-40.0) % [place] % (Auto) 11.8 (0.0-15.0) % Eos % (Auto) 3.7 (0.0-7.0) % Baso % (Auto) 0.3 (0.0-1.5) % Neut # (Auto) 5.7 (1.4-5.7) K/uL Lymph # (Auto) 1.6 (0.6-2.4) K/uL [place] # (Auto) 1.0 H (0.0-0.8) K/uL Eos # (Auto) 0.3 (0.0-0.7) K/uL Baso # (Auto) 0.0 (0.0-0.1) K/uL Nucleated RBC % 0.0 /100WBC Nucleated RBCs # 0 K/uL Sodium 138 (136-148) mmol/L Potassium 3.2 L (3.5-5.1) mmol/L Chloride 99 (98-107) mmol/L Carbon Dioxide 31.1 (21.0-32.0) mmol/L BUN 16 (7.0-18.0) mg/dL Creatinine 0.9 (0.8-1.3) mg/dL Est Cr Clr Drug Dosing 74.37 mL/min Estimated GFR (MDRD) > 60.0 ml/min Glucose 97 (74-106) mg/dL Calcium 8.8 (8.5-10.1) mg/dL Total Bilirubin 1.3 H (0.2-1.0) mg/dL AST 16 (15-37) IU/L ALT 19 (14-63) IU/L Alkaline Phosphatase 119 H (46-116) U/L Troponin I < 0.050 (0.000-0.056) ng/mL Total Protein 6.8 (6.4-8.2) g/dL Albumin 3.0 L (3.4-5.0) g/dL Globulin 3.8 (2.6-4.0) g/dL Albumin/Globulin Ratio 0.8 L (0.9-1.6) Departure - Departure Time of Disposition: 16:26 Disposition: Home, Self-Care 01 Condition: Good Clinical Impression: Hypokalemia Medication adverse effect Qualifiers: Encounter type: initial encounter Qualified Code(s): T50.905A - Adverse effect of unspecified drugs, medicaments and biological substances, initial encounter - Discharge Information Referrals: PCP,None [Primary Care Provider] - Forms: ED Department Discharge Additional Instructions: The following information is given to patients seen in the emergency department who are being discharged to home. This information is to outline your options for follow-up care. We provide all patients seen in our emergency department with a follow-up referral. The need for follow-up, as well as the timing and circumstances, are variable depending upon the specifics of your emergency department visit. If you don't have a primary care physician on staff, we will provide you with a referral. We always advise you to contact your personal physician following an emergency department visit to inform them of the circumstance of the visit and for follow-up with them and/or the need for any referrals to a consulting specialist. The emergency department will also refer you to a specialist when appropriate. This referral assures that you have the opportunity for follow-up care with a specialist. All of these measure are taken in an effort to provide you with optimal care, which includes your follow-up. Under all circumstances we always encourage you to contact your private physician who remains a resource for coordinating your care. When calling for follow-up care, please make the office aware that this follow-up is from your recent emergency room visit. If for any reason you are refused follow-up, please contact the [facility] Emergency Department at and asked to speak to the emergency department charge nurse. 1. Take an extra potassium tablet today tomorrow and . 2. May take oxycodone or tramadol before bed. Try to take only Tylenol 650 mg every 6 hours during the day. Tramadol and oxycodone make you very sleepy. 3. Try to keep your right hand elevated. Work with your physical therapist. Clench/open your hand frequently--10 x an hour which will help with swelling 4. Follow up with your surgeon as previously scheduled. Sepsis Event Note (ED) - Evaluation Sepsis Screening Result: No Definite Risk - Focused Exam Vital Signs: Vital Signs Temp Pulse Resp BP Pulse Ox 11/10/20 14:14 36.3 C 65 16 123/66 94 L - My Orders Last 24 Hours: My Active Orders 11/10/20 14:41 UA W/JERICA RFLX IF INDICATED [URIN] Stat 11/10/20 14:42 EKG 12 Lead [EKG Documentation Completion] [RC] STAT 11/10/20 16:19 Wrist 2V Rt [CR] Stat - Assessment/Plan Last 24 Hours: My Active Orders 11/10/20 14:41 UA W/JERICA RFLX IF INDICATED [URIN] Stat 11/10/20 14:42 EKG 12 Lead [EKG Documentation Completion] [RC] STAT 11/10/20 16:19 Wrist 2V Rt [CR] Stat
[2020-11-10 15:50] LABS: BLOOD UREA NITROGEN,BUN 16 mg/dL (7.0-18.0); CARBON DIOXIDE,CO2 31.1 mmol/L (21.0-32.0); CHLORIDE,CL 99 mmol/L (98-107); GLUCOSE RANDOM 97 mg/dL (74-106); POTASSIUM,K 3.2 mmol/L (3.5-5.1); SODIUM,NA 138 mmol/L (136-148)
[2020-11-10 16:22] VITALS: BP 123/62; PULSE 67
== END 2020-11-10 16:44 | disposition home or self-care (01) ==
LOC: MW.ED 13:39
DX: E87.6 Hypokalemia (principal); T40.425A Adverse effect of tramadol, initial encounter; M25.531 Pain in right wrist; E11.9 Type 2 diabetes mellitus without complications; I10 Essential (primary) hypertension; E78.00 Pure hypercholesterolemia, unspecified; I25.2 Old myocardial infarction; K21.9 Gastro-esophageal reflux disease without esophagitis; Z91.013 Allergy to seafood; Z88.8 Allergy status to other drugs, medicaments and biological substances; Z79.84 Long term (current) use of oral hypoglycemic drugs; Z79.82 Long term (current) use of aspirin; Z79.01 Long term (current) use of anticoagulants; Z79.899 Other long term (current) drug therapy
CPT/HCPCS: 36415; 80053; 84484; 85025; 93005; 93010; 99283; 99283-25

== ENCOUNTER 2023-03-08 18:34 | Emergency (ER) | payer OTHER, MEDICARE ==
[2023-03-08] MEDS ORDERED: traMADol 50 MG Tab PO ONE (20:18)
[2023-03-09 00:53] VITALS: BP 123/74; PULSE 78
== END 2023-03-08 20:55 | disposition home or self-care (01) ==
LOC: MW.ED 18:34
DX: M25.512 Pain in left shoulder (principal); E78.00 Pure hypercholesterolemia, unspecified; I10 Essential (primary) hypertension; I25.2 Old myocardial infarction; J45.909 Unspecified asthma, uncomplicated; K21.9 Gastro-esophageal reflux disease without esophagitis; E11.9 Type 2 diabetes mellitus without complications; Z91.013 Allergy to seafood; Z91.048 Other nonmedicinal substance allergy status; Z79.82 Long term (current) use of aspirin; Z79.01 Long term (current) use of anticoagulants; Z79.84 Long term (current) use of oral hypoglycemic drugs; Z79.899 Other long term (current) drug therapy
CPT/HCPCS: 73030; 99283; A9270

== ENCOUNTER 2024-12-04 10:12 | Emergency (ER) | payer OTHER, MEDICARE ==
[2024-12-04 12:34] VITALS: BP 143/66; PULSE 62
== END 2024-12-04 12:34 | disposition home or self-care (01) ==
LOC: MW.ED 10:12
DX: S80.01XA Contusion of right knee, initial encounter (principal); I10 Essential (primary) hypertension; I25.2 Old myocardial infarction; E78.00 Pure hypercholesterolemia, unspecified; K21.9 Gastro-esophageal reflux disease without esophagitis; E11.9 Type 2 diabetes mellitus without complications; Z95.5 Presence of coronary angioplasty implant and graft; Z79.899 Other long term (current) drug therapy; Z79.2 Long term (current) use of antibiotics; Z79.82 Long term (current) use of aspirin; Z79.84 Long term (current) use of oral hypoglycemic drugs; Z91.048 Other nonmedicinal substance allergy status; Z91.013 Allergy to seafood; Z75.8 Other problems related to medical facilities and other health care; X50.1XXA Overexertion from prolonged static or awkward postures, initial encounter
CPT/HCPCS: 73562-26-RT; 73562-RT; 99283